=== PATIENT | female | born 1945 | race Caucasian/White ===

== ENCOUNTER 2017-01-15 15:00 | Inpatient (IN) | payer MEDICARE, OTHER ==
[~2017-01-15] VITALS: Ht 157.5 cm; Wt 90.7 kg
--- NOTE | 2017-01-15 15:09 | NUR ---
Pt BIB paramedics, c/o R knee pain, weakness; in room 4B evaluated by MD. Cont with MD orders.
[2017-01-15] MEDS ORDERED: IV NORMAL SALINE 500 ML BAG IV ONE (15:15)
[2017-01-15 15:44] LABS: BASOPHILS % (AUTO) 0.5 % (0.0-2.0); EOSINOPHILS # (AUTO) 0.1 K/uL (0.0-0.7); EOSINOPHILS % (AUTO) 1.2 % (0.0-7.0); HEMATOCRIT 40.1 % (37-47); HEMOGLOBIN 12.9 G/DL (12.0-16.0); LYMPHOCYTES # (AUTO) 1.7 K/UL (0.8-4.8); LYMPHOCYTES % (AUTO) 26.6 % (20.5-51.5); MEAN CORPUSCULAR HEMOGLOBIN 24.2 UUG (27.0-31.0); MEAN CORPUSCULAR HGB CONC 32 g/dL (32.0-37.0); MEAN CORPUSCULAR VOLUME 75.3 FL (81.0-99.0); MONOCYTES # (AUTO) 0.3 K/UL (0.1-1.30); NEUTROPHILS # (AUTO) 4.2 K/UL (1.8-8.9); NEUTROPHILS % (AUTO) 66.7 % (38.5-71.5); PLATELET COUNT (AUTO) 374 K/UL (150-450); RED BLOOD CELL COUNT(AUTO) 5.33 MIL/UL (4.2-5.4); WHITE BLOOD COUNT (AUTO) 6.3 K/UL (4.0-11.2)
[2017-01-15 15:46] LABS: CREATININE 1.1 mg/dL (0.6-1.3); POTASSIUM 5.2 mmol/L (3.5-5.1)
[2017-01-15 15:51] LABS: BILIRUBIN,DIRECT 0.1 mg/dL (0.0-0.2); BILIRUBIN,TOTAL 0.2 mg/dL (0.2-1.0); TOTAL PROTEIN, SERUM 7.4 g/dL (6.4-8.2)
[2017-01-15] MEDS ORDERED: NITROGLYCERIN OINT 1 GM PACKET TP ONE ×2 (16:30→16:47)
[2017-01-15] MEDS ORDERED: FUROSEMIDE 20 MG/2 ML VIAL IV ONE (16:30)
[2017-01-15] MEDS ORDERED: ASPIRIN 81 MG TAB.CHEW PO ONE (16:30)
[2017-01-15] MEDS ORDERED: ACET-2154 PO (16:32)
[2017-01-15] MEDS ORDERED: EXEN5PEN2 SQ (16:37)
[2017-01-15] MEDS ORDERED: ALBU6.7H INH (16:37)
[2017-01-15] MEDS ORDERED: ASPI81TA31 PO (16:37)
[2017-01-15] MEDS ORDERED: ASPIRIN 81 MG TAB.CHEW ONE (16:47)
[2017-01-15] MEDS ORDERED: FUROSEMIDE 40 MG/4 ML VIAL ONE (16:48)
[2017-01-15] MEDS ORDERED: CITA20TA11 PO (16:56)
[2017-01-15] MEDS ORDERED: DOCU100C36 PO (16:56)
[2017-01-15] MEDS ORDERED: MONT10TA22 PO (16:56)
[2017-01-15] MEDS ORDERED: METF10002 PO (16:56)
[2017-01-15] MEDS ORDERED: FURO40TA5 PO (16:56)
[2017-01-15] MEDS ORDERED: PRAV20TA4 PO (16:56)
[2017-01-15] MEDS ORDERED: GUAI-755 PO (16:56)
[2017-01-15] MEDS ORDERED: LOSA100T15 PO (16:56)
[2017-01-15] MEDS ORDERED: POTA10TA15 PO (16:56)
[2017-01-15] MEDS ORDERED: OXYB5TAB11 PO (16:56)
[2017-01-15] MEDS ORDERED: OMEP20TA5 PO (16:56)
[2017-01-15] MEDS ORDERED: IPRA0.2S48 IH ×2 (16:56)
--- NOTE | 2017-01-15 17:15 | NUR ---
Pt resting on a gumarquise mcneil, nad noted, a/o x 4, family with pt. Report given to unit nurse. Will transfer.
[2017-01-15] MEDS ORDERED: ONDANSETRON 4 MG/2 ML VIAL IV PRN (17:45)
[2017-01-15] MEDS ORDERED: ACETAMINOPHEN 325 MG TABLET PO PRN (17:45)
[2017-01-15] MEDS ORDERED: TEMAZEPAM 15 MG CAPSULE PO PRN (17:45)
[2017-01-15] MEDS ORDERED: MORPHINE SULFATE 2 MG/1 ML DISP.SYRIN IV PRN (17:45)
[2017-01-15] MEDS ORDERED: Medication Not On Formulary EA (Pravastatin Sodium 1 TAB) PO SCH (18:00)
--- NOTE | 2017-01-15 18:00 | NUR ---
RECEIVED FOR ADMISSION 71 YEARS OLD FEMALE FROM ED TO ROOM 205 BY ELISHA PLACED INTO BED FIXED AND MADE COMFORTABLE.PATIENT IS ALERT WITH DISORIENTATION.PATIENTS DAUGHTER IS AT THE BEDSIDE AND ASSISTED WITH THE ADMISSION PATIENT HAS DEMENTIA NAD DOES NOT SPEAK MUCH WOLOF..MD AWARE THAT THE PATIENT IS HERE AWAITING FOR ADMISSION ORDERS.
[2017-01-15 18:15] VITALS: BP 100/46
[2017-01-15] MEDS ORDERED: TEMAZEPAM 7.5 MG CAPSULE PO PRN (18:15)
--- NOTE | 2017-01-15 19:20 | NUR ---
Received patient in bed, awake and alert. No apparent distress noted. No complaints of pain or discomfort at this time. On Telemetry with Sinus Rhythm on the monitor with HR 60. Safety measures and fall precautions maintained. Continue current plan of care.
[2017-01-15] MEDS ORDERED: DEXTROSE 50% 50 ML DISP.SYRIN IV PRN (19:45)
[2017-01-15] MEDS ORDERED: INSULIN REGULAR, HUMAN 300 UNIT/3 ML VIAL SQ PRN (19:45)
[2017-01-15 20:00] VITALS: BP 111/51
[2017-01-15] MEDS ORDERED: DOCUSATE SODIUM 250 MG CAPSULE PO SCH (21:00)
[2017-01-15] MEDS: DOCUSATE SODIUM 100 MG CAPSULE PO SCH (21:04)
[2017-01-15] MEDS: MONTELUKAST SODIUM 10 MG TABLET PO SCH (21:04)
[2017-01-15] MEDS: ATORVASTATIN 10 MG TABLET PO SCH (21:04)
[2017-01-15] MEDS: BLOOD SUGAR DIAGNOSTIC 1 EACH STRIP VI SCH (21:09)
[2017-01-16] VITALS: BP 107/47
[2017-01-16 04:00] VITALS: BP 117/52
[2017-01-16 06:20] LABS: BASOPHILS # (AUTO) 0.1 K/uL (0.0-8.0); BASOPHILS % (AUTO) 0.8 % (0.0-2.0); EOSINOPHILS # (AUTO) 0.1 K/uL (0.0-0.7); EOSINOPHILS % (AUTO) 1.6 % (0.0-7.0); HEMATOCRIT 37.1 % (37-47); LYMPHOCYTES % (AUTO) 28.3 % (20.5-51.5); MEAN CORPUSCULAR HEMOGLOBIN 24.6 UUG (27.0-31.0); MEAN CORPUSCULAR HGB CONC 32 g/dL (32.0-37.0); MEAN CORPUSCULAR VOLUME 75.9 FL (81.0-99.0); MONOCYTES # (AUTO) 0.3 K/UL (0.1-1.30); MONOCYTES % (AUTO) 4.9 % (0.0-11.0); NEUTROPHILS # (AUTO) 4.5 K/UL (1.8-8.9); NEUTROPHILS % (AUTO) 64.4 % (38.5-71.5); PLATELET COUNT (AUTO) 320 K/UL (150-450); RED BLOOD CELL COUNT(AUTO) 4.88 MIL/UL (4.2-5.4)
[2017-01-16 06:42] LABS: THYROID STIMULATING HORMONE 0.27 mIU/mL (0.358-3.740)
[2017-01-16 06:51] LABS: BILIRUBIN,TOTAL 0.3 mg/dL (0.2-1.0); MAGNESIUM 1.8 mg/dL (1.8-2.4); PHOSPHOROUS 4.2 mg/dL (2.5-4.9); POTASSIUM 4.3 mmol/L (3.5-5.1); TOTAL PROTEIN, SERUM 6.5 g/dL (6.4-8.2)
[2017-01-16] MEDS: PANTOPRAZOLE SODIUM 40 MG TABLET.DR PO SCH (06:52)
[2017-01-16] MEDS: BLOOD SUGAR DIAGNOSTIC 1 EACH STRIP VI SCH ×4 (06:58→21:30)
[2017-01-16] MEDS: ASPIRIN 81 MG TAB.CHEW PO SCH (08:58)
[2017-01-16] MEDS: CITALOPRAM 20 MG TABLET PO SCH (08:58)
[2017-01-16] MEDS: FUROSEMIDE 20 MG/2 ML VIAL IV SCH ×2 (08:59→21:27)
[2017-01-16] MEDS: CELECOXIB 200 MG CAPSULE PO SCH (08:59)
[2017-01-16] MEDS: OXYBUTYNIN CHLORIDE 5 MG TABLET PO SCH (08:59)
[2017-01-16] MEDS: LOSARTAN POTASSIUM 50 MG TABLET PO SCH (08:59)
[2017-01-16] MEDS ORDERED: Medication Not On Formulary EA (Losartan Potassium 1 TAB) PO SCH (09:00)
--- NOTE | 2017-01-16 09:00 | NUR ---
RESTING IN HER ROOM AT THIS TIME ALERT TO SELF ALL NEEDS ANTICIPATED AND SATISFIED MADE COMFORTABLE NO S/S OF HYPO/HYPERGLYCEMIC REACTIONS AT THIS TIME.
[2017-01-16] MEDS: Z GUARD REMEDY PASTE 57 GM TUBE TOP SCH ×2 (10:39→21:27)
--- NOTE | 2017-01-16 11:30 | NUR ---
PATIENT SEEN BY THE PHYSICAL THERAPY FOR AMBULATION WITH THE FRONT WHEEL WALKER WITH GOOD ENDURANCE.BACK INTO BED
[2017-01-16 11:53] VITALS: BP 106/45
[2017-01-16 16:07] VITALS: BP 100/42
--- NOTE | 2017-01-16 17:30 | NUR ---
PATIENT REFUSED DINNER SPOKE TO HER THROUGH AN CLINICAL SERVICES DIRECTOR THAT SPEAKS FARSI AND SHE STATED THAT SHE JUST WANTED HARD [employer] CALLED AND NOTIFIED AND THEY BROUGHT IT AND SHE ATE THEM.
--- NOTE | 2017-01-16 19:30 | NUR ---
RECEIVED PATIENT LAYING COMFORTABLY IN BED. NO ACUTE DISTRESS NOTED. SAFETY INITIATED. CALL LIGHT WITHIN REACH. PATIENT IS ALERT AND ORIENTED X 3. FARSI SPEAKING. BODY ASSESSMENT DONE. NOTED UMB. HERNIA. AMBULATORY. BRP. STARTED NEW IV ON THE LEFT AC #22. WILL CONTINUE TO MONITOR.
[2017-01-16 20:25] VITALS: BP 108/47
[2017-01-16] MEDS: MONTELUKAST SODIUM 10 MG TABLET PO SCH (21:26)
[2017-01-16] MEDS: DOCUSATE SODIUM 100 MG CAPSULE PO SCH (21:26)
[2017-01-16] MEDS: ATORVASTATIN 10 MG TABLET PO SCH (21:26)
[2017-01-17 05:51] VITALS: BP 110/45
[2017-01-17] MEDS: PANTOPRAZOLE SODIUM 40 MG TABLET.DR PO SCH (06:10)
[2017-01-17 06:16] LABS: BASOPHILS % (AUTO) 0.5 % (0.0-2.0); EOSINOPHILS # (AUTO) 0.1 K/uL (0.0-0.7); HEMOGLOBIN 12.2 G/DL (12.0-16.0); LYMPHOCYTES # (AUTO) 1.8 K/UL (0.8-4.8); LYMPHOCYTES % (AUTO) 32.9 % (20.5-51.5); MEAN CORPUSCULAR HEMOGLOBIN 24.9 UUG (27.0-31.0); MEAN CORPUSCULAR HGB CONC 33 g/dL (32.0-37.0); MEAN CORPUSCULAR VOLUME 75.5 FL (81.0-99.0); MONOCYTES # (AUTO) 0.4 K/UL (0.1-1.30); MONOCYTES % (AUTO) 6.6 % (0.0-11.0); NEUTROPHILS # (AUTO) 3.3 K/UL (1.8-8.9); PLATELET COUNT (AUTO) 321 K/UL (150-450); WHITE BLOOD COUNT (AUTO) 5.6 K/UL (4.0-11.2)
[2017-01-17 06:20] LABS: BILIRUBIN,TOTAL 0.2 mg/dL (0.2-1.0); CREATININE 0.9 mg/dL (0.6-1.3); PHOSPHOROUS 4.1 mg/dL (2.5-4.9); POTASSIUM 3.9 mmol/L (3.5-5.1); TOTAL PROTEIN, SERUM 6.5 g/dL (6.4-8.2)
--- NOTE | 2017-01-17 06:22 | NUR ---
NO CHANGES T/O SHIFT. NO ACUTE DISTRESS NOTED. PATIENT SLEPT T/O SHIFT. VSS. SAFETY AND COMFORT MEASURES MAINTAINED T/O SHIFT. ALL NEEDS MET.
[2017-01-17] MEDS: BLOOD SUGAR DIAGNOSTIC 1 EACH STRIP VI SCH ×4 (06:40→20:32)
--- NOTE | 2017-01-17 08:00 | NUR ---
awake alert and oriented, denies of pain, no shortness of breath noted, on room air, explained plan of care- verbalized understanding, needs attended, call light within reach, bed alarm on
[2017-01-17] MEDS: CITALOPRAM 20 MG TABLET PO SCH (08:28)
[2017-01-17] MEDS: LOSARTAN POTASSIUM 50 MG TABLET PO SCH (08:28)
[2017-01-17] MEDS: OXYBUTYNIN CHLORIDE 5 MG TABLET PO SCH (08:29)
[2017-01-17] MEDS: CELECOXIB 200 MG CAPSULE PO SCH (08:29)
[2017-01-17] MEDS: FUROSEMIDE 20 MG/2 ML VIAL IV SCH (08:29)
[2017-01-17] MEDS: ASPIRIN 81 MG TAB.CHEW PO SCH (08:29)
[2017-01-17] MEDS: Z GUARD REMEDY PASTE 57 GM TUBE TOP SCH ×2 (08:30→20:33)
--- NOTE | 2017-01-17 11:00 | NUR ---
Dr Bauman spoke to daughter Yoel
[2017-01-17 11:30] VITALS: BP 95/46
--- NOTE | 2017-01-17 15:00 | NUR ---
MRSA nares positive- placed on isolation and started on Bactroban oint to nostrils, education given
[2017-01-17 15:39] VITALS: BP 100/40
[2017-01-17] MEDS: MUPIROCIN 2% OINT 22 GM TUBE NS SCH ×2 (15:51→20:32)
--- NOTE | 2017-01-17 18:10 | NUR ---
resting in bed, denies of pain, all needs attended and met, no distress noted, call light within reach
--- NOTE | 2017-01-17 19:00 | NUR ---
Appears sleeping during initial rounds. No s/s of pain/discomforts noted. Safety measures and fall precaution maintained.
[2017-01-17 20:00] VITALS: BP 115/56
[2017-01-17] MEDS: MONTELUKAST SODIUM 10 MG TABLET PO SCH (20:32)
[2017-01-17] MEDS: ATORVASTATIN 10 MG TABLET PO SCH (20:32)
[2017-01-17] MEDS: DOCUSATE SODIUM 100 MG CAPSULE PO SCH (20:32)
[2017-01-17 21:08] LABS: *BILIRUBIN,URIN NEGATIVE (NEGATIVE); *BLOOD, URINE NEGATIVE (NEGATIVE); *COLOR,URINE YELLOW (YELLOW); *KETONES,URINE NEGATIVE (NEGATIVE); *PROTEIN,URINE NEGATIVE (NEGATIVE); *UROBILINOGEN,URINE 0.2 E.U./dl (NORMAL); LEUKOCYTE ESTERASE ,URINE TRACE (NEGATIVE); NITRITE, URINE NEGATIVE (NEGATIVE); UGLUCOSE NEGATIVE (NEGATIVE)
[2017-01-17 21:17] LABS: *CLARITY,URINE SLIGHTLY HAZY (CLEAR)
[2017-01-17 21:20] LABS: BACTERIA,URINE MANY /HPF (NONE SEEN); SQUAMOUS EPITHELIAL CELL,UR FEW /HPF (NONE SEEN)
[2017-01-18 05:14] VITALS: BP 113/51
--- NOTE | 2017-01-18 06:20 | NUR ---
Slept good. No complaint presented all night. All needs attended and met. Continue care as planned.
[2017-01-18] MEDS: BLOOD SUGAR DIAGNOSTIC 1 EACH STRIP VI SCH ×3 (06:26→16:18)
[2017-01-18] MEDS: PANTOPRAZOLE SODIUM 40 MG TABLET.DR PO SCH (06:27)
[2017-01-18 06:30] LABS: BASOPHILS # (AUTO) 0.1 K/uL (0.0-8.0); EOSINOPHILS # (AUTO) 0.2 K/uL (0.0-0.7); EOSINOPHILS % (AUTO) 2.8 % (0.0-7.0); HEMOGLOBIN 11.9 G/DL (12.0-16.0); LYMPHOCYTES % (AUTO) 31.8 % (20.5-51.5); MEAN CORPUSCULAR HGB CONC 33 g/dL (32.0-37.0); MONOCYTES # (AUTO) 0.3 K/UL (0.1-1.30); MONOCYTES % (AUTO) 5.5 % (0.0-11.0); NEUTROPHILS # (AUTO) 3.5 K/UL (1.8-8.9); NEUTROPHILS % (AUTO) 58.9 % (38.5-71.5); PLATELET COUNT (AUTO) 323 K/UL (150-450); RED BLOOD CELL COUNT(AUTO) 4.74 MIL/UL (4.2-5.4); WHITE BLOOD COUNT (AUTO) 6.1 K/UL (4.0-11.2)
[2017-01-18 06:38] LABS: CREATININE 0.8 mg/dL (0.6-1.3); MAGNESIUM 2.1 mg/dL (1.8-2.4); PHOSPHOROUS 3.8 mg/dL (2.5-4.9); POTASSIUM 4.2 mmol/L (3.5-5.1)
--- NOTE | 2017-01-18 07:10 | NUR ---
PT SLEEPING IN BED, AWAKENS TO NAME. IN NO ACUTE DISTRESS, BED ALARM ON. NO NEEDS AT THIS TIME. WILL CONTINUE TO MONITOR
[2017-01-18] MEDS ORDERED: NITROFURANTOIN/NITROFURAN MAC 100 MG CAPSULE PO SCH (09:00)
[2017-01-18] MEDS: LOSARTAN POTASSIUM 50 MG TABLET PO SCH (09:00)
[2017-01-18] MEDS: OXYBUTYNIN CHLORIDE 5 MG TABLET PO SCH (09:02)
[2017-01-18] MEDS: CITALOPRAM 20 MG TABLET PO SCH (09:02)
[2017-01-18] MEDS: ASPIRIN 81 MG TAB.CHEW PO SCH (09:02)
[2017-01-18] MEDS: FUROSEMIDE 20 MG/2 ML VIAL IV SCH (09:02)
[2017-01-18] MEDS: CELECOXIB 200 MG CAPSULE PO SCH (09:02)
[2017-01-18] MEDS: Z GUARD REMEDY PASTE 57 GM TUBE TOP SCH (09:03)
--- NOTE | 2017-01-18 09:29 | NUR ---
PHARMACY CALLED TO ENSURE MONITORING OF PT WHILE GIVING MACROBID DUE TO UNKNOWN ABX ALLERGY, WILL FOLLOW THROUGH
[2017-01-18] MEDS: MUPIROCIN 2% OINT 22 GM TUBE NS SCH (09:46)
--- NOTE | 2017-01-18 09:52 | NUR ---
MACROBID GIVEN, RECHECKED BP 101/43 WILL CONTINUE TO MONITOR
[2017-01-18 11:33] VITALS: BP 103/44
[2017-01-18 15:59] VITALS: BP 105/48
[2017-01-18] MEDS ORDERED: IOHEXOL 300MG/ML 100 ML INFUS..BTL ONE (16:29)
[2017-01-18] MEDS ORDERED: NORMAL SALINE FLUSH 10 ML DISP.SYRIN ONE (16:29)
[2017-01-18] MEDS ORDERED: IV NORMAL SALINE 0 ML IV ONE (16:29)
[2017-01-18] MEDS ORDERED: TEMA7.5C PO (17:19)
[2017-01-18] MEDS ORDERED: MULT1TAB73 PO (17:19)
[2017-01-18] MEDS ORDERED: NITR100C11 PO (17:19)
[2017-01-18] MEDS ORDERED: INSU100V28 SQ (17:19)
[2017-01-18] MEDS ORDERED: PRAV10TA40 PO (17:19)
[2017-01-18] MEDS ORDERED: Blood Sugar Diagnostic VI (17:19)
[2017-01-18] MEDS ORDERED: POTA-10 PO (17:19)
[2017-01-18] MEDS ORDERED: MUPI22OI2 NS (17:19)
[2017-01-18] MEDS ORDERED: FURO20TA4 PO (17:19)
[2017-01-18] MEDS ORDERED: ALBU0.63 NEB (17:19)
[2017-01-18] MEDS ORDERED: CELE200C PO (17:19)
[2017-01-18] MEDS ORDERED: DEXT50DI8 IV (17:19)
[2017-01-18] MEDS ORDERED: ACET325T53 PO (17:19)
[2017-01-18] MEDS ORDERED: LOSA50TA3 PO (17:19)
--- NOTE | 2017-01-18 18:29 | NUR ---
DISCHARGE PROTOCOL FOLLOWED, PT UNCOOPERATIVE FOR PICTURES AND REFUSED SACRUM PICTURE. ALL BELONGINGS WERE SENT HOME WITH FAMILY PRIOR TO DISCHARGE. IV REMOVED WITH NO REDNESS OR IRRITATION NOTED. [facility], PT LEFT VIA GURNEY WITH AMBULANCE STAFF
[2017-01-19] MEDS ORDERED: LOSARTAN POTASSIUM 50 MG TABLET PO SCH (09:00)
[2017-01-19] MEDS ORDERED: FUROSEMIDE 20 MG TABLET PO SCH (09:00)
== END 2017-01-18 18:20 | DRG 291 ==
LOC: ER 15:00 → TELE 17:19 → MED 01-16 10:00
PROVIDERS: ADMIT Internal Medicine; ATTEND Internal Medicine
DX: I11.0 Hypertensive heart disease with heart failure (principal); E43 Unspecified severe protein-calorie malnutrition; D68.59 Other primary thrombophilia; E87.5 Hyperkalemia; J44.9 Chronic obstructive pulmonary disease, unspecified; N39.0 Urinary tract infection, site not specified; E87.1 Hypo-osmolality and hyponatremia; F03.90 Unspecified dementia, unspecified severity, without behavioral disturbance, psychotic disturbance, mood disturbance, and anxiety; R00.1 Bradycardia, unspecified; E11.9 Type 2 diabetes mellitus without complications; E05.90 Thyrotoxicosis, unspecified without thyrotoxic crisis or storm; R62.7 Adult failure to thrive; I50.33 Acute on chronic diastolic (congestive) heart failure; F20.9 Schizophrenia, unspecified; F41.9 Anxiety disorder, unspecified; I45.10 Unspecified right bundle-branch block; K21.9 Gastro-esophageal reflux disease without esophagitis; E78.5 Hyperlipidemia, unspecified; E66.9 Obesity, unspecified; G47.33 Obstructive sleep apnea (adult) (pediatric); Z86.73 Personal history of transient ischemic attack (TIA), and cerebral infarction without residual deficits; M17.11 Unilateral primary osteoarthritis, right knee; I35.0 Nonrheumatic aortic (valve) stenosis; Z68.36 Body mass index [BMI] 36.0-36.9, adult; B96.20 Unspecified Escherichia coli [E. coli] as the cause of diseases classified elsewhere; E07.9 Disorder of thyroid, unspecified; R53.1 Weakness
CPT/HCPCS: 36415; 70030-TC; 71010; 83550; 83690; 83735; 84100; 84443; 85025; 85730; 87077; 87086; 93005; 93307; A4663; J1815; J1940; J3490; J7030; J7050; Q9967

== ENCOUNTER 2017-03-13 12:23 | Inpatient (IN) | payer MEDICARE, OTHER ==
[~2017-03-13] VITALS: Ht 157.5 cm; Wt 95.7 kg
[~2017-03-13 12:23] MED LIST: ACET325T53 PO; ALBU0.63 NEB; ASPI81TA31 PO; Blood Sugar Diagnostic VI; CELE200C PO; CITA20TA11 PO; DEXT50DI8 IV; DOCU100C36 PO; EXEN5PEN2 SQ; FURO20TA4 PO; GUAI-755 PO; INSU100V28 SQ; IPRA0.2S48 IH; LOSA50TA3 PO; MONT10TA22 PO; MULT1TAB73 PO; MUPI22OI2 NS; NITR100C11 PO; OMEP20TA5 PO; OXYB5TAB11 PO; POTA-10 PO; PRAV10TA40 PO; TEMA7.5C PO
--- NOTE | 2017-03-13 12:30 | NUR ---
Dr sarabia at the bedside for eval and exam.
[2017-03-13] MEDS ORDERED: IV NORMAL SALINE 500 ML BAG IV ONE (12:45)
[2017-03-13] MEDS ORDERED: GLUC1KIT IM (13:20)
[2017-03-13] MEDS ORDERED: FURO-151 PO (13:20)
[2017-03-13] MEDS ORDERED: MELO-105 PO (13:20)
[2017-03-13 13:44] LABS: BASOPHILS # (AUTO) 0.2 K/uL (0.0-8.0); BASOPHILS % (AUTO) 2.2 % (0.0-2.0); EOSINOPHILS # (AUTO) 0.1 K/uL (0.0-0.7); EOSINOPHILS % (AUTO) 1.9 % (0.0-7.0); HEMATOCRIT 38.7 % (37-47); HEMOGLOBIN 12.2 G/DL (12.0-16.0); LYMPHOCYTES # (AUTO) 1.5 K/UL (0.8-4.8); LYMPHOCYTES % (AUTO) 20.8 % (20.5-51.5); MEAN CORPUSCULAR HEMOGLOBIN 23.7 UUG (27.0-31.0); MEAN CORPUSCULAR HGB CONC 32 g/dL (32.0-37.0); MEAN CORPUSCULAR VOLUME 74.9 FL (81.0-99.0); MONOCYTES # (AUTO) 0.4 K/UL (0.1-1.30); MONOCYTES % (AUTO) 5.1 % (0.0-11.0); NEUTROPHILS # (AUTO) 5.2 K/UL (1.8-8.9); PLATELET COUNT (AUTO) 331 K/UL (150-450); RED BLOOD CELL COUNT(AUTO) 5.16 MIL/UL (4.2-5.4); WHITE BLOOD COUNT (AUTO) 7.4 K/UL (4.0-11.2)
--- NOTE | 2017-03-13 13:50 | NUR ---
Pt is fed by Pt's daughter. Denies pain, SOB.
[2017-03-13 13:56] LABS: POTASSIUM 4.4 mmol/L (3.5-5.1)
[2017-03-13 14:05] LABS: BILIRUBIN,DIRECT 0.1 mg/dL (0.0-0.2); BILIRUBIN,TOTAL 0.3 mg/dL (0.2-1.0)
[2017-03-13] MEDS ORDERED: FUROSEMIDE 20 MG/2 ML VIAL IV ONE (14:15)
[2017-03-13] MEDS ORDERED: FUROSEMIDE 40 MG/4 ML VIAL ONE (14:32)
[2017-03-13 14:48] LABS: *BILIRUBIN,URIN NEGATIVE (NEGATIVE); *BLOOD, URINE Trace-intact (NEGATIVE); *CLARITY,URINE CLEAR (CLEAR); *COLOR,URINE YELLOW (YELLOW); *KETONES,URINE NEGATIVE (NEGATIVE); *PROTEIN,URINE NEGATIVE (NEGATIVE); *UROBILINOGEN,URINE 0.2 E.U./dl (NORMAL); LEUKOCYTE ESTERASE ,URINE TRACE (NEGATIVE); NITRITE, URINE NEGATIVE (NEGATIVE); UGLUCOSE NEGATIVE (NEGATIVE)
[2017-03-13 14:58] LABS: RBC,URINE 0-3 /HPF (0-3); SQUAMOUS EPITHELIAL CELL,UR FEW /HPF (NONE SEEN)
[2017-03-13 16:10] VITALS: BP 117/41
--- NOTE | 2017-03-13 18:00 | NUR ---
Admitted pt with assistance from blue phone sales operations coordinator named SHILPI Roy speaking #[phone]. Pt alert and oriented x 4. Pt Denies any c/o pain. SNR on tele skin intact. IV on left AC #20 gauge. NOted edema on DEON legs +4 and BIle Leg +3. Call light is within reach. POLST in chart. Education given to pt re: not drinking too much water to help with her congestion. Pt agreeable. Pt agreeable also on having banana with her breakfast to help with possible diuretics to be given by PMD. Pt agreeable on to call for nursing when going the bathroom. Fall precaution implemented.
[2017-03-13] MEDS ORDERED: ACETAMINOPHEN 325 MG TABLET PO PRN (18:45)
[2017-03-13] MEDS ORDERED: IPRATROPIUM BROMIDE 0.5 MG/2.5 ML NEBU IH SCH (18:45)
[2017-03-13] MEDS ORDERED: ONDANSETRON 4 MG/2 ML VIAL IV PRN (18:45)
[2017-03-13] MEDS ORDERED: INSULIN REGULAR, HUMAN 300 UNIT/3 ML VIAL SQ PRN ×2 (18:45)
[2017-03-13] MEDS ORDERED: DEXTROSE 50% 50 ML DISP.SYRIN IV PRN (18:45)
[2017-03-13] MEDS ORDERED: TEMAZEPAM 7.5 MG CAPSULE PO PRN (18:45)
[2017-03-13] MEDS ORDERED: ALBUTEROL SULFATE 2.5 MG/3 ML NEBU NEB PRN (18:45)
[2017-03-13] MEDS ORDERED: DOCUSATE SODIUM 100 MG CAPSULE PO PRN (18:45)
[2017-03-13] MEDS ORDERED: MORPHINE SULFATE 2 MG/1 ML DISP.SYRIN IV PRN (18:45)
[2017-03-13] MEDS ORDERED: MORPHINE SULFATE 4 MG/1 ML DISP.SYRIN IV PRN (19:00)
--- NOTE | 2017-03-13 19:30 | NUR ---
PT RECEIVED IN BED LAYING DOWN NO ACUTE DISTRESS NOTED. PT IS FARSI SPEAKING ONLY BUT ABLE TO MAKE NEEDS KNOWN. COMPLIANT WITH MEDICATIONS PO. NO S/S HYPO/HYPERGLYCEMIA NOTED. PT ON TELE SINUS/MAHNAZ DENISE RATING CLERK AWARE. PT ON NASAL CANULA 2 LITERS BUT REFUSING TO WEAR. BED IN LOW AND LOCKED POSITION, WILL CONTINUE TO MONITOR FOR SAFETY.
[2017-03-13 20:00] VITALS: BP 98/46
[2017-03-13] MEDS ORDERED: Medication Not On Formulary EA (Pravastatin Sodium 10 MG) PO SCH (21:00)
[2017-03-13] MEDS: MONTELUKAST SODIUM 10 MG TABLET PO SCH (21:08)
[2017-03-13] MEDS: ATORVASTATIN 10 MG TABLET PO SCH (21:08)
[2017-03-13] MEDS: INSULIN REGULAR, HUMAN 300 UNITS/3 ML VIAL SQ PRN (21:12)
[2017-03-13] MEDS: BLOOD SUGAR DIAGNOSTIC 1 EACH STRIP VI SCH (21:13)
[2017-03-14 00:35] VITALS: BP 134/50
[2017-03-14] MEDS: FUROSEMIDE 40 MG/4 ML VIAL IV SCH ×3 (01:26→20:07)
--- NOTE | 2017-03-14 03:00 | NUR ---
PT SLEEPING WELL, UP ONCE TO USE RESTROOM. REMAINS ON TELE SINUS BIGEMINY, NO ACUTE DISTRESS NOTED.
[2017-03-14 04:00] VITALS: BP 131/50
[2017-03-14] MEDS: BLOOD SUGAR DIAGNOSTIC 1 EACH STRIP VI SCH ×4 (06:53→20:07)
--- NOTE | 2017-03-14 07:35 | NUR ---
PT RECEIVED IN BED LAYING DOWN NO ACUTE DISTRESS NOTED. COMPLIANT WITH MEDICATIONS NO S/S HYPO/HYPERGLYCEMIA NOTED. PT ON TELE SINUS/BIGEMINY, PT ON NASAL CANULA 2 LITERS BUT REFUSING TO WEAR. BED IN LOW AND LOCKED POSITION, WILL CONTINUE TO MONITOR FOR SAFETY CALL LIGHT WITH IN REACH
[2017-03-14] MEDS: POTASSIUM CHLORIDE 10 MEQ CAPSULE.SA PO SCH (08:18)
[2017-03-14] MEDS: MELOXICAM 7.5 MG TABLET PO SCH (08:18)
[2017-03-14] MEDS: MULTIVITAMINS,THERAPEUTIC TABLET PO SCH (08:18)
[2017-03-14] MEDS: CITALOPRAM 20 MG TABLET PO SCH (08:19)
[2017-03-14] MEDS: OXYBUTYNIN CHLORIDE 5 MG TABLET PO SCH (08:19)
[2017-03-14] MEDS: ASPIRIN 81 MG TAB.CHEW PO SCH (08:19)
[2017-03-14] MEDS: LOSARTAN POTASSIUM 50 MG TABLET PO SCH (08:39)
[2017-03-14] MEDS ORDERED: Medication Not On Formulary EA (Potassium Chloride (K-Dur) 10 MEQ) PO SCH (09:00)
[2017-03-14] MEDS ORDERED: Medication Not On Formulary EA (Multivitamins (Multivitamin) 1 EACH) PO SCH (09:00)
[2017-03-14] MEDS ORDERED: FUROSEMIDE 40 MG TABLET PO SCH (09:00)
[2017-03-14 10:04] LABS: BASOPHILS % (AUTO) 0.6 % (0.0-2.0); EOSINOPHILS # (AUTO) 0.2 K/uL (0.0-0.7); EOSINOPHILS % (AUTO) 2.5 % (0.0-7.0); HEMATOCRIT 36.7 % (37-47); HEMOGLOBIN 11.8 G/DL (12.0-16.0); LYMPHOCYTES # (AUTO) 1.1 K/UL (0.8-4.8); LYMPHOCYTES % (AUTO) 16.4 % (20.5-51.5); MEAN CORPUSCULAR HEMOGLOBIN 23.9 UUG (27.0-31.0); MEAN CORPUSCULAR HGB CONC 32 g/dL (32.0-37.0); MEAN CORPUSCULAR VOLUME 74.5 FL (81.0-99.0); MONOCYTES # (AUTO) 0.2 K/UL (0.1-1.30); MONOCYTES % (AUTO) 3.7 % (0.0-11.0); NEUTROPHILS # (AUTO) 5.1 K/UL (1.8-8.9); NEUTROPHILS % (AUTO) 76.8 % (38.5-71.5); PLATELET COUNT (AUTO) 309 K/UL (150-450); RED BLOOD CELL COUNT(AUTO) 4.93 MIL/UL (4.2-5.4); WHITE BLOOD COUNT (AUTO) 6.6 K/UL (4.0-11.2)
[2017-03-14 10:09] LABS: BILIRUBIN,TOTAL 0.4 mg/dL (0.2-1.0); CREATININE 1.1 mg/dL (0.6-1.3); PHOSPHOROUS 4.2 mg/dL (2.5-4.9); POTASSIUM 4.2 mmol/L (3.5-5.1); TOTAL PROTEIN, SERUM 7.2 g/dL (6.4-8.2)
[2017-03-14 11:18] VITALS: BP 107/69
--- NOTE | 2017-03-14 12:00 | NUR ---
Pt is fed by Pt's daughter. Denies pain, SOB.
[2017-03-14 15:46] VITALS: BP 124/47
[2017-03-14 19:49] VITALS: BP 105/56
[2017-03-14] MEDS: MONTELUKAST SODIUM 10 MG TABLET PO SCH (20:07)
[2017-03-14] MEDS: ATORVASTATIN 10 MG TABLET PO SCH (20:07)
[2017-03-14] MEDS: INSULIN REGULAR, HUMAN 300 UNITS/3 ML VIAL SQ PRN (20:13)
[2017-03-14 23:40] VITALS: BP 128/56
[2017-03-15 03:46] VITALS: BP 115/42
[2017-03-15 03:49] VITALS: BP 115/42
--- NOTE | 2017-03-15 06:26 | NUR ---
SLEPT MOST SHIFT. ON SR WITH PVCS ON TELE. IN NO ACUTE SIGNS OF DISTRESS. BRP.
[2017-03-15] MEDS: BLOOD SUGAR DIAGNOSTIC 1 EACH STRIP VI SCH ×4 (06:57→21:17)
--- NOTE | 2017-03-15 08:00 | NUR ---
PT RECEIVED IN BED LAYING DOWN NO ACUTE DISTRESS NOTED. PT IS FARSI SPEAKING ONLY BUT ABLE TO MAKE NEEDS KNOWN. COMPLIANT WITH MEDICATIONS PO. NO S/S HYPO/HYPERGLYCEMIA NOTED. PT ON TELE SINUS/MAHNAZ DENISE HIGH SCHOOL COORDINATOR AWARE. BED IN LOW AND LOCKED POSITION, WILL CONTINUE TO MONITOR FOR SAFETY.
[2017-03-15] MEDS: MULTIVITAMINS,THERAPEUTIC TABLET PO SCH (08:02)
[2017-03-15] MEDS: POTASSIUM CHLORIDE 10 MEQ CAPSULE.SA PO SCH (08:02)
[2017-03-15] MEDS: ASPIRIN 81 MG TAB.CHEW PO SCH (08:03)
[2017-03-15] MEDS: MELOXICAM 7.5 MG TABLET PO SCH (08:03)
[2017-03-15] MEDS: OXYBUTYNIN CHLORIDE 5 MG TABLET PO SCH (08:03)
[2017-03-15] MEDS: CITALOPRAM 20 MG TABLET PO SCH (08:03)
[2017-03-15] MEDS: FUROSEMIDE 40 MG/4 ML VIAL IV SCH ×2 (08:16→21:16)
[2017-03-15] MEDS: LOSARTAN POTASSIUM 50 MG TABLET PO SCH (08:18)
[2017-03-15] MEDS ORDERED: MAGNESIUM HYDROXIDE 30 ML LIQUID UDC PO PRN (11:30)
[2017-03-15 11:36] VITALS: BP 100/44
[2017-03-15 15:10] VITALS: BP 123/62
[2017-03-15] MEDS ORDERED: HYDROCODONE/APAP 5-325MG TABLET PO PRN (15:15)
--- NOTE | 2017-03-15 16:41 | NUR ---
RESTING IN HER ROOM ,FAMILY AT BED SIDE.
--- NOTE | 2017-03-15 19:30 | NUR ---
PT UP IN CHAIR. IN NO ACUTE SIGNS OF DISTRESS. NO C/O PAIN AT THIS TIME. SR ON TELE.
[2017-03-15 20:56] VITALS: BP 118/55
[2017-03-15] MEDS: ATORVASTATIN 10 MG TABLET PO SCH (21:16)
[2017-03-15] MEDS: MONTELUKAST SODIUM 10 MG TABLET PO SCH (21:17)
[2017-03-15] MEDS: INSULIN REGULAR, HUMAN 300 UNITS/3 ML VIAL SQ PRN (21:20)
--- NOTE | 2017-03-16 05:45 | NUR ---
SLEPT INTERMITTENTLY. NO ACUTE SIGNS OF DISTRESS. NEEDS ATTENDED AND MET.
[2017-03-16 05:46] VITALS: BP 112/41
[2017-03-16] MEDS: BLOOD SUGAR DIAGNOSTIC 1 EACH STRIP VI SCH ×3 (06:33→16:06)
--- NOTE | 2017-03-16 07:24 | NUR ---
PT RECEIVED IN BED LAYING DOWN NO ACUTE DISTRESS NOTED. PT IS FARSI SPEAKING ONLY BUT ABLE TO MAKE NEEDS KNOWN. COMPLIANT WITH MEDICATIONS PO. NO S/S HYPO/HYPERGLYCEMIA NOTED. PT ON TELE SINUS/MAHNAZ DENISE ESCALATOR CONSTRUCTOR AWARE. BED IN LOW AND LOCKED POSITION, WILL CONTINUE TO MONITOR FOR SAFETY.
[2017-03-16 07:39] LABS: BASOPHILS % (AUTO) 0.5 % (0.0-2.0); EOSINOPHILS # (AUTO) 0.2 K/uL (0.0-0.7); HEMATOCRIT 38.8 % (37-47); HEMOGLOBIN 12.5 G/DL (12.0-16.0); LYMPHOCYTES # (AUTO) 1.4 K/UL (0.8-4.8); LYMPHOCYTES % (AUTO) 21.3 % (20.5-51.5); MEAN CORPUSCULAR HEMOGLOBIN 24.3 UUG (27.0-31.0); MEAN CORPUSCULAR HGB CONC 32 g/dL (32.0-37.0); MEAN CORPUSCULAR VOLUME 75.2 FL (81.0-99.0); MONOCYTES # (AUTO) 0.5 K/UL (0.1-1.30); MONOCYTES % (AUTO) 6.9 % (0.0-11.0); NEUTROPHILS # (AUTO) 4.6 K/UL (1.8-8.9); NEUTROPHILS % (AUTO) 68.3 % (38.5-71.5); PLATELET COUNT (AUTO) 333 K/UL (150-450); RED BLOOD CELL COUNT(AUTO) 5.16 MIL/UL (4.2-5.4); WHITE BLOOD COUNT (AUTO) 6.7 K/UL (4.0-11.2)
[2017-03-16 07:56] LABS: BILIRUBIN,TOTAL 0.4 mg/dL (0.2-1.0); MAGNESIUM 2.2 mg/dL (1.8-2.4); PHOSPHOROUS 4.2 mg/dL (2.5-4.9); POTASSIUM 4.2 mmol/L (3.5-5.1); TOTAL PROTEIN, SERUM 7.5 g/dL (6.4-8.2)
[2017-03-16 07:57] LABS: THYROID STIMULATING HORMONE 0.327 mIU/mL (0.358-3.740)
[2017-03-16] MEDS: ASPIRIN 81 MG TAB.CHEW PO SCH (08:04)
[2017-03-16] MEDS: OXYBUTYNIN CHLORIDE 5 MG TABLET PO SCH (08:04)
[2017-03-16] MEDS: MELOXICAM 7.5 MG TABLET PO SCH (08:04)
[2017-03-16] MEDS: POTASSIUM CHLORIDE 10 MEQ CAPSULE.SA PO SCH (08:04)
[2017-03-16] MEDS: CITALOPRAM 20 MG TABLET PO SCH (08:04)
[2017-03-16] MEDS: MULTIVITAMINS,THERAPEUTIC TABLET PO SCH (08:04)
[2017-03-16] MEDS: LOSARTAN POTASSIUM 50 MG TABLET PO SCH (08:10)
[2017-03-16] MEDS: FUROSEMIDE 40 MG/4 ML VIAL IV SCH (08:11)
[2017-03-16 11:03] VITALS: BP 116/56
[2017-03-16] MEDS ORDERED: FERROUS SULFATE 325 MG TABEC PO SCH (12:15)
[2017-03-16 15:14] VITALS: BP 118/62
[2017-03-16] MEDS ORDERED: IPRA3AMP IH (16:03)
[2017-03-16] MEDS ORDERED: FERR325T28 PO (16:03)
[2017-03-16] MEDS ORDERED: FUROSEMIDE 40 MG TABLET PO SCH (17:00)
--- NOTE | 2017-03-16 17:17 | NUR ---
d/c orders received noted and carried out,d/c heplock per md orders.rn report given to [facility],ot left the facility via ambulances in stable condition.
[2017-03-17] MEDS ORDERED: ASPIRIN EC 81 MG TABLET.DR PO SCH (09:00)
== END 2017-03-16 17:20 | DRG 292 ==
LOC: ER 12:24 → TELE 14:19 → MED 03-15 19:45
PROVIDERS: ADMIT Internal Medicine; ATTEND Internal Medicine
DX: I11.0 Hypertensive heart disease with heart failure (principal); D68.59 Other primary thrombophilia; E44.0 Moderate protein-calorie malnutrition; E05.90 Thyrotoxicosis, unspecified without thyrotoxic crisis or storm; F20.9 Schizophrenia, unspecified; D50.9 Iron deficiency anemia, unspecified; E11.9 Type 2 diabetes mellitus without complications; E07.89 Other specified disorders of thyroid; N39.0 Urinary tract infection, site not specified; E66.9 Obesity, unspecified; E78.5 Hyperlipidemia, unspecified; J44.9 Chronic obstructive pulmonary disease, unspecified; G47.33 Obstructive sleep apnea (adult) (pediatric); I50.33 Acute on chronic diastolic (congestive) heart failure; I87.2 Venous insufficiency (chronic) (peripheral); R62.7 Adult failure to thrive; M19.90 Unspecified osteoarthritis, unspecified site; Z86.73 Personal history of transient ischemic attack (TIA), and cerebral infarction without residual deficits; Z68.38 Body mass index [BMI] 38.0-38.9, adult; I45.10 Unspecified right bundle-branch block; F41.9 Anxiety disorder, unspecified; R53.81 Other malaise; Z79.4 Long term (current) use of insulin; R94.31 Abnormal electrocardiogram [ECG] [EKG]
CPT/HCPCS: 36415; 70030-TC; 71010; 83550; 83605; 83735; 84100; 84443; 85025; 85730; 87040; 87086; 93005; A4663; J1815; J1940; J7040

== ENCOUNTER 2017-05-26 15:14 | Inpatient (IN) | payer MEDICARE, OTHER ==
[~2017-05-26] VITALS: Ht 157.5 cm; Wt 96.2 kg
[~2017-05-26 15:14] MED LIST changes: -ALBU0.63 NEB; -Blood Sugar Diagnostic VI; -CELE200C PO; -DEXT50DI8 IV; +FERR325T28 PO; +FURO-151 PO; -FURO20TA4 PO; -GUAI-755 PO; -INSU100V28 SQ; -IPRA0.2S48 IH; +IPRA3AMP IH; +MELO-105 PO; -MUPI22OI2 NS; -NITR100C11 PO
--- NOTE | 2017-05-26 15:20 | NUR ---
DR COX AT THE BEDSIDE FOR MSE.
[2017-05-26] MEDS ORDERED: IV NORMAL SALINE 500 ML BAG IV ONE (15:30)
[2017-05-26] MEDS ORDERED: ROBITUSSIN DM PO (15:57)
[2017-05-26] MEDS ORDERED: LIRA0.6P2 SQ (15:57)
[2017-05-26] MEDS ORDERED: LEVO500T2 PO (15:57)
[2017-05-26 16:05] LABS: BASOPHILS # (AUTO) 0.1 K/uL (0.0-8.0); BASOPHILS % (AUTO) 0.8 % (0.0-2.0); EOSINOPHILS % (AUTO) 0.5 % (0.0-7.0); HEMATOCRIT 36.2 % (31.2-41.9); HEMOGLOBIN 11.8 g/dL (10.9-14.3); LYMPHOCYTES # (AUTO) 1.1 K/uL (20.0-40.0); LYMPHOCYTES % (AUTO) 14.3 % (20.5-51.5); MEAN CORPUSCULAR HEMOGLOBIN 23.7 uug (24.7-32.8); MEAN CORPUSCULAR HGB CONC 33 g/dL (32.3-35.6); MEAN CORPUSCULAR VOLUME 72.5 fL (75.5-95.3); MONOCYTES # (AUTO) 0.6 K/uL (2.0-10.0); MONOCYTES % (AUTO) 7.7 % (0.0-11.0); NEUTROPHILS % (AUTO) 76.7 % (38.5-71.5); PLATELET COUNT (AUTO) 421 K/uL (179-408); WHITE BLOOD COUNT (AUTO) 7.9 K/uL (3.8-11.8)
[2017-05-26 16:26] LABS: BILIRUBIN,DIRECT 0.1 mg/dL (0.0-0.2); BILIRUBIN,TOTAL 0.3 mg/dL (0.2-1.0); TOTAL PROTEIN, SERUM 7.4 g/dL (6.4-8.2)
--- NOTE | 2017-05-26 16:27 | NUR ---
PT'S DAUGHTER FEEDING THE PT. PT REMAINES ON 1L OF O2 VIA N/C, COUGHING AT TIMES. DENIES SOB AND PAIN.
--- NOTE | 2017-05-26 16:30 | NUR ---
MRSA COLLECTED AND SENT TO LAB, BELONGING LIST COMPLETED.
[2017-05-26] MEDS ORDERED: FUROSEMIDE 20 MG/2 ML VIAL IV ONE (17:45)
[2017-05-26] MEDS ORDERED: FUROSEMIDE 40 MG/4 ML VIAL ONE (18:00)
--- NOTE | 2017-05-26 18:00 | NUR ---
PATIENT WAS RECEIVED FROM ER
[2017-05-26 18:04] VITALS: BP 111/58
--- NOTE | 2017-05-26 19:30 | NUR ---
Received patient sitting in the bed. No acute distress noted. Farsi speaking only. TELE Sinus Rhythm. On O2 2L NC. Patient is obese. Patient is able to ambulate with assistance. Noted bilateral lower extremities. Safety initiated. Call light within reach. Room is kept clutter free. Bed is in low and locked position. Will continue to monitor.
[2017-05-26 20:00] VITALS: BP 109/55
[2017-05-26] MEDS ORDERED: ACETAMINOPHEN 325 MG TABLET PO PRN (21:45)
[2017-05-26] MEDS ORDERED: MORPHINE SULFATE 2 MG/1 ML DISP.SYRIN IV PRN (21:45)
[2017-05-26] MEDS ORDERED: DOCUSATE SODIUM 100 MG CAPSULE PO PRN (21:45)
[2017-05-26] MEDS ORDERED: NORMAL SALINE FLUSH 10 ML DISP.SYRIN IV PRN (21:45)
[2017-05-26] MEDS ORDERED: ACETAMINOPHEN 650 MG SUPP.RECT RC PRN (21:45)
[2017-05-26] MEDS ORDERED: ROBITUSSIN DM PO SCH (21:45)
[2017-05-26 22:12] LABS: *BILIRUBIN,URIN NEGATIVE (NEGATIVE); *BLOOD, URINE NEGATIVE (NEGATIVE); *CLARITY,URINE CLEAR (CLEAR); *COLOR,URINE LIGHT YELLOW (YELLOW); *KETONES,URINE NEGATIVE (NEGATIVE); *PROTEIN,URINE NEGATIVE (NEGATIVE); *UROBILINOGEN,URINE 0.2 E.U./dl (NORMAL); LEUKOCYTE ESTERASE ,URINE NEGATIVE (NEGATIVE); NITRITE, URINE NEGATIVE (NEGATIVE); PH,URINE 5.5 (5.0-8.0); UGLUCOSE NEGATIVE (NEGATIVE)
[2017-05-26] MEDS: LEVOFLOXACIN 500 MG/D5W 500 MG in PREMIXED 1 EACH IV SCH (22:16)
[2017-05-26 22:17] LABS: SQUAMOUS EPITHELIAL CELL,UR FEW /HPF (NONE SEEN); WBC,URINE 0-3 /HPF (0-3)
[2017-05-26] MEDS: NORMAL SALINE FLUSH 10 ML DISP.SYRIN IV SCH (22:17)
[2017-05-26] MEDS ORDERED: LEVOFLOXACIN 500 MG/D5W 100 ML ONE (22:24)
--- NOTE | 2017-05-26 22:30 | NUR ---
IV Abx infusing, no reactions. Will continue to monitor.
[2017-05-27] VITALS: BP 112/58
[2017-05-27 04:00] VITALS: BP 110/59
--- NOTE | 2017-05-27 05:36 | NUR ---
Patient slept intermittently t/o shift. No acute distress noted. Patient is on O2 2L NC. TELE SR with PVC's. Patient has a cough. Non productive. Patient is able to ambulate with assistive device or with assistance. Urinating well. Safety and comfort measures maintained t/o shift. Vital signs stable. All meds given as ordered. All needs met.
[2017-05-27] MEDS: NORMAL SALINE FLUSH 10 ML DISP.SYRIN IV SCH ×3 (05:38→21:42)
[2017-05-27 07:12] LABS: BASOPHILS % (AUTO) 0.3 % (0.0-2.0); EOSINOPHILS # (AUTO) 0.1 K/uL (0.0-0.7); EOSINOPHILS % (AUTO) 1.1 % (0.0-7.0); HEMATOCRIT 38.5 % (31.2-41.9); HEMOGLOBIN 12.4 g/dL (10.9-14.3); LYMPHOCYTES # (AUTO) 1.3 K/uL (20.0-40.0); LYMPHOCYTES % (AUTO) 15.1 % (20.5-51.5); MEAN CORPUSCULAR HEMOGLOBIN 23.4 uug (24.7-32.8); MEAN CORPUSCULAR HGB CONC 32 g/dL (32.3-35.6); MEAN CORPUSCULAR VOLUME 72.5 fL (75.5-95.3); MONOCYTES # (AUTO) 0.5 K/uL (2.0-10.0); MONOCYTES % (AUTO) 5.7 % (0.0-11.0); NEUTROPHILS # (AUTO) 6.7 K/uL (1.8-8.9); NEUTROPHILS % (AUTO) 77.8 % (38.5-71.5); PLATELET COUNT (AUTO) 489 K/uL (179-408); WHITE BLOOD COUNT (AUTO) 8.6 K/uL (3.8-11.8)
[2017-05-27] MEDS ORDERED: MORPHINE SULFATE 4 MG/1 ML DISP.SYRIN IV PRN (07:15)
[2017-05-27 07:27] LABS: BILIRUBIN,TOTAL 0.3 mg/dL (0.2-1.0); PHOSPHOROUS 4.2 mg/dL (2.5-4.9); POTASSIUM 4.9 mmol/L (3.5-5.1); TOTAL PROTEIN, SERUM 7.9 g/dL (6.4-8.2)
--- NOTE | 2017-05-27 07:30 | NUR ---
Received patient sitting in the bed. No acute distress noted. Farsi speaking only. TELE Sinus Rhythm. On O2 2L NC. Patient is able to ambulate with assistance. Safety initiated. Call light within reach. Bed is in low and locked position. Will continue to monitor.
[2017-05-27] MEDS: GUAIFENESIN/DEXTROMETHORPHAN 5 ML UDC PO PRN ×3 (07:37→21:40)
[2017-05-27] MEDS: PANTOPRAZOLE SODIUM 40 MG TABLET.DR PO SCH (07:37)
[2017-05-27] MEDS: ASPIRIN 81 MG TAB.CHEW PO SCH (08:02)
[2017-05-27] MEDS: CITALOPRAM 20 MG TABLET PO SCH (08:02)
[2017-05-27] MEDS: OXYBUTYNIN CHLORIDE 5 MG TABLET PO SCH (08:02)
[2017-05-27] MEDS: FERROUS SULFATE 325 MG TABEC PO SCH (08:02)
[2017-05-27] MEDS: FUROSEMIDE 20 MG/2 ML VIAL IV SCH ×2 (08:04→21:41)
[2017-05-27 11:50] VITALS: BP 118/49
[2017-05-27 15:50] VITALS: BP 110/42
--- NOTE | 2017-05-27 19:30 | NUR ---
NSG: Pt received sitting on the chair. no acute distress noted. denies discomfort. tele, SR. ambulatory with stand by assist using fww.
[2017-05-27 20:10] VITALS: BP 119/43
[2017-05-27] MEDS: MONTELUKAST SODIUM 10 MG TABLET PO SCH (21:40)
[2017-05-27] MEDS: LEVOFLOXACIN 500 MG/D5W 500 MG in PREMIXED 1 EACH IV SCH (21:41)
--- NOTE | 2017-05-27 23:30 | NUR ---
NSG: Pt received lasix ivp. incontinent of urine.
[2017-05-28] VITALS: BP 115/43
[2017-05-28 04:00] VITALS: BP 92/74
[2017-05-28] MEDS ORDERED: Z GUARD REMEDY PASTE 57 GM TUBE TOP PRN (04:45)
--- NOTE | 2017-05-28 05:30 | NUR ---
nsg: pt awake. no acute distress noted. denies discomfort. all needs attended. tele, SR.
[2017-05-28] MEDS: GUAIFENESIN/DEXTROMETHORPHAN 5 ML UDC PO PRN ×2 (06:19→15:18)
[2017-05-28] MEDS: PANTOPRAZOLE SODIUM 40 MG TABLET.DR PO SCH (06:19)
[2017-05-28] MEDS: NORMAL SALINE FLUSH 10 ML DISP.SYRIN IV SCH ×3 (06:19→20:52)
[2017-05-28] MEDS: CITALOPRAM 20 MG TABLET PO SCH (08:43)
[2017-05-28] MEDS: FERROUS SULFATE 325 MG TABEC PO SCH (08:43)
[2017-05-28] MEDS: FUROSEMIDE 20 MG/2 ML VIAL IV SCH ×2 (08:43→20:53)
[2017-05-28] MEDS: OXYBUTYNIN CHLORIDE 5 MG TABLET PO SCH (08:43)
[2017-05-28] MEDS: ASPIRIN 81 MG TAB.CHEW PO SCH (08:43)
[2017-05-28 11:48] VITALS: BP 115/58
--- NOTE | 2017-05-28 15:00 | NUR ---
Notified MD regarding patient's A1C result. MD aware.
[2017-05-28 15:55] VITALS: BP 107/58
--- NOTE | 2017-05-28 18:00 | NUR ---
Patient is alert, in no distress, no SOB. Patient noted with dry non productive cough, medicated as ordered. Safety measures in place, call light within reach. Will continue to monitor.
[2017-05-28 20:00] VITALS: BP 128/42
[2017-05-28] MEDS: MONTELUKAST SODIUM 10 MG TABLET PO SCH (20:56)
[2017-05-29 04:48] VITALS: BP 125/63
[2017-05-29] MEDS: NORMAL SALINE FLUSH 10 ML DISP.SYRIN IV SCH ×2 (06:24→14:00)
[2017-05-29] MEDS: PANTOPRAZOLE SODIUM 40 MG TABLET.DR PO SCH (06:24)
[2017-05-29] MEDS: FERROUS SULFATE 325 MG TABEC PO SCH (08:20)
[2017-05-29] MEDS: ASPIRIN 81 MG TAB.CHEW PO SCH (08:20)
[2017-05-29] MEDS: OXYBUTYNIN CHLORIDE 5 MG TABLET PO SCH (08:20)
[2017-05-29] MEDS: CITALOPRAM 20 MG TABLET PO SCH (08:20)
[2017-05-29] MEDS: GUAIFENESIN/DEXTROMETHORPHAN 5 ML UDC PO PRN (08:20)
[2017-05-29] MEDS: FUROSEMIDE 20 MG/2 ML VIAL IV SCH (08:20)
--- NOTE | 2017-05-29 09:00 | NUR ---
Patient found sitting on the floor by JESI Dumont and MICHAEL Arenas. Patient is alert, in no distress. Assisted patient back to bed, pt able to stand up, and move extremities. Pt c/o of slight pain on her butt. Addendum: 05/29/17 at 1327 by SHAHIDA MUNGUIA RN Add: Vital signs taken, stable, no sob. Will notify
[2017-05-29 09:09] VITALS: BP 121/85
--- NOTE | 2017-05-29 09:30 | NUR ---
Used glass etcher #[id number] Farsi language. Patient stated she fell from chair to floor and did not hit her head. Patient stated she feels pain on her buttocks. Instructed patient to use call light, ask assistance and not to walk on her own as she is risk for falls. Patient verbalized understanding. Instructed patient not to sit on the edge of the bed but patient refused. Safety measures in place, will continue to monitor.
--- NOTE | 2017-05-29 09:30 | NUR ---
ordered for xray of the hips/pelvis.
--- NOTE | 2017-05-29 10:30 | NUR ---
Daughter at bedside, patient reported no pain to her daughter and stated she did not fall. Discussed with daughter and patient regarding fall risk, safety measures. Daughter/patient verbalized understanding but patient refused to be in bed and prefers to sit on the edge of the bed.
[2017-05-29 11:01] VITALS: BP 119/74
--- NOTE | 2017-05-29 12:15 | NUR ---
Patient refused xray, patient stated she has no pain. MD notified.
[2017-05-29] MEDS ORDERED: FUROSEMIDE 20 MG/2 ML VIAL IV ONE (14:15)
[2017-05-29 15:00] VITALS: BP 123/51
--- NOTE | 2017-05-29 15:20 | NUR ---
Patient to be discharged to [facility]. Belonging list done.
--- NOTE | 2017-05-29 15:30 | NUR ---
Report given to MICHAEL Troncoso from [facility].
--- NOTE | 2017-05-29 16:15 | NUR ---
Patient transported to [facility] by ambulance via gurney. Patient is alert, in no distress, no SOB, VS stable, pt is afebrile Belongings 2 bags and discharge papers transported with the patient.
== END 2017-05-29 16:20 | DRG 190 ==
LOC: ER 15:16 → TELE 17:38 → MED 05-28 12:10
PROVIDERS: ADMIT Internal Medicine; ATTEND Internal Medicine
DX: J44.0 Chronic obstructive pulmonary disease with (acute) lower respiratory infection (principal); I50.33 Acute on chronic diastolic (congestive) heart failure; E44.0 Moderate protein-calorie malnutrition; D68.59 Other primary thrombophilia; F20.9 Schizophrenia, unspecified; Q21.1 Atrial septal defect; E05.90 Thyrotoxicosis, unspecified without thyrotoxic crisis or storm; J20.8 Acute bronchitis due to other specified organisms; I11.0 Hypertensive heart disease with heart failure; E11.9 Type 2 diabetes mellitus without complications; D50.9 Iron deficiency anemia, unspecified; I45.10 Unspecified right bundle-branch block; Z79.82 Long term (current) use of aspirin; Z79.899 Other long term (current) drug therapy; I87.2 Venous insufficiency (chronic) (peripheral); E66.9 Obesity, unspecified; Z68.38 Body mass index [BMI] 38.0-38.9, adult; F41.9 Anxiety disorder, unspecified; M17.11 Unilateral primary osteoarthritis, right knee; G47.33 Obstructive sleep apnea (adult) (pediatric); Z86.73 Personal history of transient ischemic attack (TIA), and cerebral infarction without residual deficits; K21.9 Gastro-esophageal reflux disease without esophagitis; B96.89 Other specified bacterial agents as the cause of diseases classified elsewhere
CPT/HCPCS: 36415; 70030-TC; 71045; 83735; 84100; 85025; 85730; 87040; 87086; 87400; 93005; 97165; A4663; C1758; J1940; J1956; J3490; J7040; J7050

== ENCOUNTER 2017-07-03 20:41 | Inpatient (IN) | payer MEDICARE, OTHER ==
[~2017-07-03] VITALS: Ht 165.1 cm; Wt 98.7 kg
[~2017-07-03 20:41] MED LIST changes: -CITA20TA11 PO; +CITA20TA16 PO; -EXEN5PEN2 SQ; +LEVO500T2 PO; +LIRA0.6P2 SQ; +ROBITUSSIN DM PO; -TEMA7.5C PO
[2017-07-03] MEDS ORDERED: ALBUTEROL SULFATE 2.5 MG/3 ML NEBU ONE (21:40)
[2017-07-03] MEDS ORDERED: IPRATROPIUM BROMIDE 0.5 MG/2.5 ML NEBU ONE (21:41)
[2017-07-03] MEDS ORDERED: IPRATROPIUM BROMIDE 0.5 MG/2.5 ML NEBU NEB ONE (21:45)
[2017-07-03] MEDS ORDERED: ALBUTEROL SULFATE 2.5 MG/3 ML NEBU NEB ONE (21:45)
[2017-07-03 22:11] LABS: BASOPHILS # (AUTO) 0.1 K/uL (0.0-8.0); BASOPHILS % (AUTO) 1.1 % (0.0-2.0); EOSINOPHILS # (AUTO) 0.1 K/uL (0.0-0.7); EOSINOPHILS % (AUTO) 0.8 % (0.0-7.0); HEMATOCRIT 39.8 % (31.2-41.9); HEMOGLOBIN 12.8 g/dL (10.9-14.3); LYMPHOCYTES # (AUTO) 1.4 K/uL (20.0-40.0); LYMPHOCYTES % (AUTO) 20.1 % (20.5-51.5); MEAN CORPUSCULAR HEMOGLOBIN 23.9 uug (24.7-32.8); MEAN CORPUSCULAR HGB CONC 32 g/dL (32.3-35.6); MEAN CORPUSCULAR VOLUME 74.4 fL (75.5-95.3); MONOCYTES # (AUTO) 0.4 K/uL (2.0-10.0); NEUTROPHILS # (AUTO) 4.9 K/uL (1.8-8.9); PLATELET COUNT (AUTO) 249 K/uL (179-408); RED BLOOD CELL COUNT(AUTO) 5.35 MIL/uL (3.63-4.92); WHITE BLOOD COUNT (AUTO) 6.8 K/uL (3.8-11.8)
[2017-07-03 22:12] LABS: POTASSIUM 4.8 mmol/L (3.5-5.1)
[2017-07-03 22:18] LABS: BILIRUBIN,DIRECT 0.1 mg/dL (0.0-0.2); BILIRUBIN,TOTAL 0.4 mg/dL (0.2-1.0); TOTAL PROTEIN, SERUM 7.7 g/dL (6.4-8.2)
[2017-07-03 22:34] LABS: BAND % (MANUAL) 8 % (0-10); LYMPHOCYTES % (MANUAL) 19 % (20-40); MONOCYTES % (MANUAL) 5 % (2-10); NEUTROPHILS % (MANUAL) 68 % (42-75)
[2017-07-03] MEDS ORDERED: methylPREDNISolone SOD SUCC 125 MG/2 ML VIAL IV ONE (23:00)
[2017-07-03] MEDS ORDERED: LEVOFLOXACIN 750 MG/D5W 150 ML PIGGYBACK IV ONE (23:00)
[2017-07-03] MEDS ORDERED: methylPREDNISolone SOD SUCC 125 MG/2 ML VIAL ONE (23:14)
[2017-07-03] MEDS ORDERED: LEVOFLOXACIN 750MG/D5W 150 ML IV ONE (23:15)
[2017-07-04] MEDS ORDERED: ONDANSETRON 4 MG/2 ML VIAL IV PRN (00:15)
[2017-07-04] MEDS ORDERED: ALBUTEROL SULFATE 2.5 MG/3 ML NEBU NEB PRN (00:15)
[2017-07-04] MEDS ORDERED: ROBITUSSIN DM PO SCH (00:15)
[2017-07-04] MEDS ORDERED: IPRATROPIUM BROMIDE 0.5 MG/2.5 ML NEBU NEB PRN (00:15)
[2017-07-04 01:30] VITALS: BP 129/91
[2017-07-04] MEDS: LEVOFLOXACIN 500 MG/D5W 500 MG in PREMIXED 1 EACH IV SCH ×2 (01:30→23:16)
[2017-07-04] MEDS: methylPREDNISolone SOD SUCC 125 MG/2 ML VIAL IV SCH ×4 (01:32→23:16)
[2017-07-04 04:45] VITALS: BP 130/58
[2017-07-04] MEDS: PANTOPRAZOLE SODIUM 40 MG TABLET.DR PO SCH (06:01)
[2017-07-04 06:50] LABS: BASOPHILS % (AUTO) 0.2 % (0.0-2.0); EOSINOPHILS % (AUTO) 0.1 % (0.0-7.0); HEMATOCRIT 40.7 % (31.2-41.9); HEMOGLOBIN 13.1 g/dL (10.9-14.3); LYMPHOCYTES # (AUTO) 0.4 K/uL (20.0-40.0); LYMPHOCYTES % (AUTO) 8.3 % (20.5-51.5); MEAN CORPUSCULAR HEMOGLOBIN 23.9 uug (24.7-32.8); MEAN CORPUSCULAR HGB CONC 32 g/dL (32.3-35.6); MEAN CORPUSCULAR VOLUME 74.2 fL (75.5-95.3); MONOCYTES % (AUTO) 0.8 % (0.0-11.0); NEUTROPHILS # (AUTO) 4.3 K/uL (1.8-8.9); NEUTROPHILS % (AUTO) 90.6 % (38.5-71.5); PLATELET COUNT (AUTO) 226 K/uL (179-408); RED BLOOD CELL COUNT(AUTO) 5.49 MIL/uL (3.63-4.92)
[2017-07-04 07:04] LABS: WHITE BLOOD COUNT (AUTO) 4.7 K/uL (3.8-11.8)
[2017-07-04 07:13] LABS: BILIRUBIN,TOTAL 0.4 mg/dL (0.2-1.0); CREATININE 1.1 mg/dL (0.6-1.3); PHOSPHOROUS 4.2 mg/dL (2.5-4.9); POTASSIUM 4.7 mmol/L (3.5-5.1); TOTAL PROTEIN, SERUM 7.9 g/dL (6.4-8.2)
[2017-07-04 07:47] LABS: BAND % (MANUAL) 6 % (0-10); LYMPHOCYTES % (MANUAL) 11 % (20-40); MONOCYTES % (MANUAL) 1 % (2-10); NEUTROPHILS % (MANUAL) 82 % (42-75)
[2017-07-04] MEDS: DOCUSATE SODIUM 100 MG CAPSULE PO SCH ×2 (08:19→16:03)
[2017-07-04] MEDS: CITALOPRAM 20 MG TABLET PO SCH (08:19)
[2017-07-04] MEDS: MELOXICAM 7.5 MG TABLET PO SCH (08:19)
[2017-07-04] MEDS: ASPIRIN 81 MG TAB.CHEW PO SCH (08:19)
[2017-07-04] MEDS: LOSARTAN POTASSIUM 50 MG TABLET PO SCH (08:20)
[2017-07-04] MEDS ORDERED: Medication Not On Formulary EA (Multivitamins (Multivitamin) 1 EACH) PO SCH (09:00)
[2017-07-04] MEDS ORDERED: Medication Not On Formulary EA (Potassium Chloride (K-Dur) 10 MEQ) PO SCH (09:00)
[2017-07-04] MEDS: OXYBUTYNIN CHLORIDE 5 MG TABLET PO SCH (11:08)
[2017-07-04 11:41] VITALS: BP 108/48
[2017-07-04 15:58] VITALS: BP 103/46
[2017-07-04] MEDS: GUAIFENESIN/DEXTROMETHORPHAN 5 ML UDC PO PRN (16:03)
[2017-07-04 18:41] LABS: *BILIRUBIN,URIN NEGATIVE (NEGATIVE); *BLOOD, URINE Trace-intact (NEGATIVE); *CLARITY,URINE HAZY (CLEAR); *COLOR,URINE YELLOW (YELLOW); *KETONES,URINE NEGATIVE (NEGATIVE); *PROTEIN,URINE NEGATIVE (NEGATIVE); *UROBILINOGEN,URINE 0.2 E.U./dl (NORMAL); LEUKOCYTE ESTERASE ,URINE TRACE (NEGATIVE); NITRITE, URINE NEGATIVE (NEGATIVE); UGLUCOSE NEGATIVE (NEGATIVE)
[2017-07-04 18:51] LABS: BACTERIA,URINE MODERATE /HPF (NONE SEEN); MUCUS,URINE MODERATE /LPF (0-FEW); SQUAMOUS EPITHELIAL CELL,UR MANY /HPF (NONE SEEN)
[2017-07-04] MEDS: MONTELUKAST SODIUM 10 MG TABLET PO SCH (20:31)
[2017-07-04] MEDS: ATORVASTATIN 10 MG TABLET PO SCH (20:31)
[2017-07-04] MEDS: ACETAMINOPHEN 325 MG TABLET PO PRN (20:31)
[2017-07-04 20:40] VITALS: BP 113/51
[2017-07-04] MEDS ORDERED: Medication Not On Formulary EA (Pravastatin Sodium 10 MG) PO SCH (21:00)
[2017-07-04] MEDS ORDERED: DEXTROSE 50% 50 ML DISP.SYRIN IV PRN (23:00)
[2017-07-05 05:24] VITALS: BP 110/55
[2017-07-05] MEDS: PANTOPRAZOLE SODIUM 40 MG TABLET.DR PO SCH (06:17)
[2017-07-05] MEDS: BLOOD SUGAR DIAGNOSTIC 1 EACH STRIP VI SCH ×4 (06:30→20:14)
[2017-07-05] MEDS: CITALOPRAM 20 MG TABLET PO SCH (08:12)
[2017-07-05] MEDS: MELOXICAM 7.5 MG TABLET PO SCH (08:12)
[2017-07-05] MEDS: MULTIVITAMINS,THERAPEUTIC TABLET PO SCH (08:12)
[2017-07-05] MEDS: POTASSIUM CHLORIDE 10 MEQ TAB.PRT.SR PO SCH (08:12)
[2017-07-05] MEDS: LOSARTAN POTASSIUM 50 MG TABLET PO SCH ×2 (08:12→11:15)
[2017-07-05] MEDS: ASPIRIN 81 MG TAB.CHEW PO SCH (08:12)
[2017-07-05] MEDS: DOCUSATE SODIUM 100 MG CAPSULE PO SCH ×2 (08:12→17:00)
[2017-07-05] MEDS: FUROSEMIDE 40 MG TABLET PO SCH (08:12)
[2017-07-05] MEDS: INSULIN REGULAR, HUMAN 300 UNIT/3 ML VIAL SQ PRN ×4 (08:15→20:16)
[2017-07-05] MEDS: methylPREDNISolone SOD SUCC 125 MG/2 ML VIAL IV SCH ×3 (08:51→23:15)
[2017-07-05 10:57] VITALS: BP 145/80
[2017-07-05] MEDS: CEFTRIAXONE 1 G in IV NORMAL SALINE 50 ML IV SCH (13:45)
[2017-07-05 15:07] VITALS: BP 120/49
[2017-07-05] MEDS ORDERED: GUAIFENESIN/DEXTROMETHORPHAN 5 ML UDC PO PRN (15:30)
[2017-07-05] MEDS: GUAIFENESIN/DEXTROMETHORPHAN 5 ML UDC PO PRN (15:52)
[2017-07-05 19:58] VITALS: BP 120/60
[2017-07-05] MEDS: ATORVASTATIN 10 MG TABLET PO SCH (20:29)
[2017-07-05] MEDS: ACETAMINOPHEN 325 MG TABLET PO PRN (20:29)
[2017-07-05] MEDS: MONTELUKAST SODIUM 10 MG TABLET PO SCH (20:29)
[2017-07-06 04:00] VITALS: BP 100/50
[2017-07-06] MEDS: PANTOPRAZOLE SODIUM 40 MG TABLET.DR PO SCH (06:00)
[2017-07-06 07:13] LABS: BASOPHILS % (AUTO) 0.1 % (0.0-2.0); HEMATOCRIT 38.7 % (31.2-41.9); HEMOGLOBIN 12.3 g/dL (10.9-14.3); LYMPHOCYTES # (AUTO) 0.6 K/uL (20.0-40.0); LYMPHOCYTES % (AUTO) 10.1 % (20.5-51.5); MEAN CORPUSCULAR HEMOGLOBIN 23.8 uug (24.7-32.8); MEAN CORPUSCULAR HGB CONC 32 g/dL (32.3-35.6); MEAN CORPUSCULAR VOLUME 74.8 fL (75.5-95.3); MONOCYTES # (AUTO) 0.1 K/uL (2.0-10.0); MONOCYTES % (AUTO) 2.1 % (0.0-11.0); NEUTROPHILS # (AUTO) 5.6 K/uL (1.8-8.9); NEUTROPHILS % (AUTO) 87.7 % (38.5-71.5); PLATELET COUNT (AUTO) 259 K/uL (179-408); RED BLOOD CELL COUNT(AUTO) 5.17 MIL/uL (3.63-4.92)
[2017-07-06 07:36] LABS: WHITE BLOOD COUNT (AUTO) 6.4 K/uL (3.8-11.8)
[2017-07-06] MEDS: BLOOD SUGAR DIAGNOSTIC 1 EACH STRIP VI SCH ×4 (07:36→21:04)
[2017-07-06 07:37] LABS: MAGNESIUM 2.2 mg/dL (1.8-2.4); PHOSPHOROUS 3.6 mg/dL (2.5-4.9); POTASSIUM 4.7 mmol/L (3.5-5.1)
[2017-07-06] MEDS: methylPREDNISolone SOD SUCC 125 MG/2 ML VIAL IV SCH ×2 (08:19→16:20)
[2017-07-06] MEDS: OXYBUTYNIN CHLORIDE 5 MG TABLET PO SCH (08:20)
[2017-07-06] MEDS: FUROSEMIDE 40 MG TABLET PO SCH (08:20)
[2017-07-06] MEDS: CITALOPRAM 20 MG TABLET PO SCH (08:20)
[2017-07-06] MEDS: DOCUSATE SODIUM 100 MG CAPSULE PO SCH ×2 (08:20→16:53)
[2017-07-06] MEDS: MELOXICAM 7.5 MG TABLET PO SCH (08:20)
[2017-07-06] MEDS: POTASSIUM CHLORIDE 10 MEQ TAB.PRT.SR PO SCH (08:20)
[2017-07-06] MEDS: MULTIVITAMINS,THERAPEUTIC TABLET PO SCH (08:20)
[2017-07-06] MEDS: ACETAMINOPHEN 325 MG TABLET PO PRN (08:20)
[2017-07-06] MEDS: ASPIRIN 81 MG TAB.CHEW PO SCH (08:20)
[2017-07-06] MEDS: GUAIFENESIN/DEXTROMETHORPHAN 5 ML UDC PO PRN (08:21)
[2017-07-06] MEDS: LOSARTAN POTASSIUM 50 MG TABLET PO SCH (08:21)
[2017-07-06] MEDS: INSULIN REGULAR, HUMAN 300 UNIT/3 ML VIAL SQ PRN ×3 (08:24→21:05)
[2017-07-06 10:01] LABS: BAND % (MANUAL) 2 % (0-10); LYMPHOCYTES % (MANUAL) 12 % (20-40); NEUTROPHILS % (MANUAL) 86 % (42-75)
[2017-07-06 11:13] VITALS: BP 109/56
[2017-07-06] MEDS: CEFTRIAXONE 1 G in IV NORMAL SALINE 50 ML IV SCH (12:38)
[2017-07-06 14:59] VITALS: BP 117/66
[2017-07-06 20:00] VITALS: BP 117/46
[2017-07-06] MEDS: ATORVASTATIN 10 MG TABLET PO SCH (21:04)
[2017-07-06] MEDS: MONTELUKAST SODIUM 10 MG TABLET PO SCH (21:04)
[2017-07-07] MEDS: methylPREDNISolone SOD SUCC 125 MG/2 ML VIAL IV SCH ×3 (00:16→16:15)
[2017-07-07 04:00] VITALS: BP 106/76
[2017-07-07] MEDS: PANTOPRAZOLE SODIUM 40 MG TABLET.DR PO SCH (06:36)
[2017-07-07] MEDS: BLOOD SUGAR DIAGNOSTIC 1 EACH STRIP VI SCH ×3 (06:36→16:41)
[2017-07-07 08:20] VITALS: BP 94/52
[2017-07-07] MEDS: FUROSEMIDE 40 MG TABLET PO SCH (09:00)
[2017-07-07] MEDS: LOSARTAN POTASSIUM 50 MG TABLET PO SCH (09:00)
[2017-07-07] MEDS: MELOXICAM 7.5 MG TABLET PO SCH (09:05)
[2017-07-07] MEDS: CITALOPRAM 20 MG TABLET PO SCH (09:05)
[2017-07-07] MEDS: MULTIVITAMINS,THERAPEUTIC TABLET PO SCH (09:05)
[2017-07-07] MEDS: DOCUSATE SODIUM 100 MG CAPSULE PO SCH ×2 (09:05→16:43)
[2017-07-07] MEDS: ASPIRIN 81 MG TAB.CHEW PO SCH (09:05)
[2017-07-07] MEDS: POTASSIUM CHLORIDE 10 MEQ TAB.PRT.SR PO SCH (09:05)
[2017-07-07] MEDS: INSULIN REGULAR, HUMAN 300 UNIT/3 ML VIAL SQ PRN ×2 (09:10→16:42)
[2017-07-07 11:34] VITALS: BP 128/66
[2017-07-07] MEDS: ACETAMINOPHEN 325 MG TABLET PO PRN (12:03)
[2017-07-07] MEDS: CEFTRIAXONE 1 G in IV NORMAL SALINE 50 ML IV SCH (13:00)
[2017-07-07] MEDS ORDERED: FUROSEMIDE 20 MG/2 ML VIAL IV ONE (13:15)
[2017-07-07] MEDS ORDERED: LEVO500T2 PO (15:22)
[2017-07-07] MEDS ORDERED: PRED20TA PO (15:22)
[2017-07-07] MEDS ORDERED: LOSA25TA3 PO (15:22)
[2017-07-07 15:34] VITALS: BP 111/52
== END 2017-07-07 20:00 | DRG 193 ==
LOC: ER 20:42 → TELE 07-04 00:25 → MED 07-04 22:00
PROVIDERS: ADMIT Internal Medicine; ATTEND Internal Medicine
DX: J18.9 Pneumonia, unspecified organism (principal); I50.33 Acute on chronic diastolic (congestive) heart failure; E44.0 Moderate protein-calorie malnutrition; D68.59 Other primary thrombophilia; J44.0 Chronic obstructive pulmonary disease with (acute) lower respiratory infection; F20.9 Schizophrenia, unspecified; Q21.1 Atrial septal defect; N39.0 Urinary tract infection, site not specified; J44.1 Chronic obstructive pulmonary disease with (acute) exacerbation; E11.9 Type 2 diabetes mellitus without complications; I11.0 Hypertensive heart disease with heart failure; D50.9 Iron deficiency anemia, unspecified; F03.90 Unspecified dementia, unspecified severity, without behavioral disturbance, psychotic disturbance, mood disturbance, and anxiety; I45.10 Unspecified right bundle-branch block; E66.9 Obesity, unspecified; Z68.37 Body mass index [BMI] 37.0-37.9, adult; G47.33 Obstructive sleep apnea (adult) (pediatric); F41.9 Anxiety disorder, unspecified; E78.5 Hyperlipidemia, unspecified; M17.11 Unilateral primary osteoarthritis, right knee; N32.81 Overactive bladder; Z86.73 Personal history of transient ischemic attack (TIA), and cerebral infarction without residual deficits; I87.2 Venous insufficiency (chronic) (peripheral); R60.0 Localized edema; K21.9 Gastro-esophageal reflux disease without esophagitis; E05.90 Thyrotoxicosis, unspecified without thyrotoxic crisis or storm; F32.9 Major depressive disorder, single episode, unspecified
CPT/HCPCS: 36415; 70030-TC; 71045; 83605; 83735; 84100; 85025; 85730; 87040; 87086; 93005; A4663; J0696; J1815; J1940; J1956; J2930; J3490; J3590; J7040

== ENCOUNTER 2017-11-08 20:30 | Inpatient (IN) | payer MEDICARE, OTHER ==
[~2017-11-08] VITALS: Ht 157.5 cm; Wt 107.1 kg
[~2017-11-08 20:30] MED LIST changes: -FURO-151 PO; -LIRA0.6P2 SQ; +LOSA25TA3 PO; -LOSA50TA3 PO; +PRED20TA PO
[2017-11-08] MEDS ORDERED: ASPIRIN 81 MG TAB.CHEW PO ONE (21:15)
[2017-11-08] MEDS ORDERED: ACETAMINOPHEN ES 500 MG TABLET PO ONE (21:15)
[2017-11-08] MEDS ORDERED: NITROGLYCERIN 0.4 MG/TAB BOTTLE SL ONE ×2 (21:15→21:23)
[2017-11-08] MEDS ORDERED: ALBUTEROL SULFATE 2.5 MG/3 ML NEBU NEB ONE (21:15)
[2017-11-08] MEDS ORDERED: ACETAMINOPHEN ES 500 MG TABLET ONE (21:23)
[2017-11-08] MEDS ORDERED: ASPIRIN 81 MG TAB.CHEW ONE (21:23)
[2017-11-08] MEDS ORDERED: ALBUTEROL SULFATE 2.5 MG/3 ML NEBU ONE (21:35)
[2017-11-08 22:01] LABS: BASOPHILS % (AUTO) 0.8 % (0.0-2.0); EOSINOPHILS # (AUTO) 0.1 K/uL (0.0-0.7); EOSINOPHILS % (AUTO) 1.9 % (0.0-7.0); HEMATOCRIT 41.7 % (31.2-41.9); HEMOGLOBIN 13.6 g/dL (10.9-14.3); LYMPHOCYTES # (AUTO) 1.4 K/uL (20.0-40.0); LYMPHOCYTES % (AUTO) 23.2 % (20.5-51.5); MEAN CORPUSCULAR HEMOGLOBIN 25.3 uug (24.7-32.8); MEAN CORPUSCULAR HGB CONC 33 g/dL (32.3-35.6); MEAN CORPUSCULAR VOLUME 77.5 fL (75.5-95.3); MONOCYTES # (AUTO) 0.4 K/uL (2.0-10.0); MONOCYTES % (AUTO) 6.1 % (0.0-11.0); NEUTROPHILS # (AUTO) 4.2 K/uL (1.8-8.9); PLATELET COUNT (AUTO) 248 K/uL (179-408); RED BLOOD CELL COUNT(AUTO) 5.38 MIL/uL (3.63-4.92); WHITE BLOOD COUNT (AUTO) 6.1 K/uL (3.8-11.8)
[2017-11-08 22:07] LABS: POTASSIUM 4.9 mmol/L (3.5-5.1)
[2017-11-08 22:23] LABS: BILIRUBIN,DIRECT 0.1 mg/dL (0.0-0.2); BILIRUBIN,TOTAL 0.3 mg/dL (0.2-1.0); TOTAL PROTEIN, SERUM 7.7 g/dL (6.4-8.2)
[2017-11-08] MEDS ORDERED: FUROSEMIDE 20 MG/2 ML VIAL IV ONE (22:30)
[2017-11-08] MEDS ORDERED: FUROSEMIDE 40 MG/4 ML VIAL ONE (22:45)
[2017-11-08] MEDS ORDERED: CLONIDINE HCL 0.1 MG TABLET PO ONE (23:15)
[2017-11-08] MEDS ORDERED: CLONIDINE HCL 0.1 MG TABLET ONE (23:34)
[2017-11-08] MEDS: NITROGLYCERIN OINT 1 GM PACKET TP ONE (23:34)
[2017-11-08] MEDS ORDERED: NITROGLYCERIN OINT 1 GM PACKET TP ONE (23:34)
[2017-11-09] MEDS: NITROGLYCERIN OINT 1 GM PACKET TP ONE (00:03)
[2017-11-09] MEDS ORDERED: ALBUTEROL SULFATE 2.5 MG/3 ML NEBU NEB PRN (00:45)
[2017-11-09] MEDS ORDERED: DOCUSATE SODIUM 100 MG CAPSULE PO PRN (00:45)
[2017-11-09] MEDS ORDERED: Z GUARD REMEDY PASTE 57 GM TUBE TOP PRN (00:45)
[2017-11-09] MEDS ORDERED: hydrALAZINE HCL 25 MG TABLET PO PRN (00:45)
[2017-11-09] MEDS ORDERED: MAGNESIUM HYDROXIDE 30 ML LIQUID UDC PO PRN (00:45)
[2017-11-09] MEDS ORDERED: HYDROCODONE/APAP 5-325MG TABLET PO PRN (00:45)
[2017-11-09] MEDS ORDERED: ONDANSETRON 4 MG/2 ML VIAL IV PRN (00:45)
[2017-11-09] MEDS ORDERED: ACETAMINOPHEN 325 MG TABLET PO PRN (00:45)
[2017-11-09 03:09] VITALS: BP 97/61
[2017-11-09] MEDS ORDERED: DEXTROMETHORPHAN PO PRN (04:00)
[2017-11-09] MEDS ORDERED: GUAIFENESIN PO PRN (04:00)
[2017-11-09] MEDS: ASPIRIN 81 MG TAB.CHEW PO SCH (08:32)
[2017-11-09] MEDS: FUROSEMIDE 20 MG/2 ML VIAL IV SCH (08:33)
[2017-11-09] MEDS: OXYBUTYNIN CHLORIDE 5 MG TABLET PO SCH (08:33)
[2017-11-09] MEDS: LOSARTAN POTASSIUM 25 MG TABLET PO SCH (08:33)
[2017-11-09] MEDS: CITALOPRAM 20 MG TABLET PO SCH (08:33)
[2017-11-09 11:20] LABS: BASOPHILS % (AUTO) 0.7 % (0.0-2.0); EOSINOPHILS # (AUTO) 0.1 K/uL (0.0-0.7); EOSINOPHILS % (AUTO) 1.9 % (0.0-7.0); HEMATOCRIT 40.7 % (31.2-41.9); HEMOGLOBIN 13.1 g/dL (10.9-14.3); LYMPHOCYTES % (AUTO) 16.2 % (20.5-51.5); MEAN CORPUSCULAR HEMOGLOBIN 24.8 uug (24.7-32.8); MEAN CORPUSCULAR HGB CONC 32 g/dL (32.3-35.6); MEAN CORPUSCULAR VOLUME 77.2 fL (75.5-95.3); MONOCYTES # (AUTO) 0.5 K/uL (2.0-10.0); MONOCYTES % (AUTO) 8.2 % (0.0-11.0); NEUTROPHILS # (AUTO) 4.3 K/uL (1.8-8.9); PLATELET COUNT (AUTO) 212 K/uL (179-408); RED BLOOD CELL COUNT(AUTO) 5.28 MIL/uL (3.63-4.92); WHITE BLOOD COUNT (AUTO) 5.9 K/uL (3.8-11.8)
[2017-11-09 11:37] LABS: CREATININE 1.1 mg/dL (0.6-1.3); MAGNESIUM 1.9 mg/dL (1.8-2.4); POTASSIUM 4.6 mmol/L (3.5-5.1)
[2017-11-09 11:41] VITALS: BP 92/46
[2017-11-09 15:32] VITALS: BP 119/50
[2017-11-09 20:00] VITALS: BP 119/66
[2017-11-09] MEDS: SIMVASTATIN 10 MG TABLET PO SCH (20:09)
[2017-11-09] MEDS: MONTELUKAST SODIUM 10 MG TABLET PO SCH (20:09)
[2017-11-10] VITALS: BP 115/60
[2017-11-10 04:00] VITALS: BP 101/50
[2017-11-10 06:49] LABS: BASOPHILS % (AUTO) 0.5 % (0.0-2.0); EOSINOPHILS # (AUTO) 0.2 K/uL (0.0-0.7); HEMATOCRIT 41.4 % (31.2-41.9); HEMOGLOBIN 13.3 g/dL (10.9-14.3); LYMPHOCYTES # (AUTO) 1.2 K/uL (20.0-40.0); LYMPHOCYTES % (AUTO) 19.3 % (20.5-51.5); MEAN CORPUSCULAR HEMOGLOBIN 24.9 uug (24.7-32.8); MEAN CORPUSCULAR HGB CONC 32 g/dL (32.3-35.6); MEAN CORPUSCULAR VOLUME 77.3 fL (75.5-95.3); MONOCYTES # (AUTO) 0.3 K/uL (2.0-10.0); MONOCYTES % (AUTO) 5.4 % (0.0-11.0); NEUTROPHILS # (AUTO) 4.6 K/uL (1.8-8.9); NEUTROPHILS % (AUTO) 71.8 % (38.5-71.5); PLATELET COUNT (AUTO) 254 K/uL (179-408); RED BLOOD CELL COUNT(AUTO) 5.35 MIL/uL (3.63-4.92); WHITE BLOOD COUNT (AUTO) 6.4 K/uL (3.8-11.8)
[2017-11-10 07:00] LABS: CREATININE 0.9 mg/dL (0.6-1.3); PHOSPHOROUS 4.2 mg/dL (2.5-4.9); POTASSIUM 4.4 mmol/L (3.5-5.1)
[2017-11-10] MEDS: CITALOPRAM 20 MG TABLET PO SCH (08:35)
[2017-11-10] MEDS: LOSARTAN POTASSIUM 25 MG TABLET PO SCH (08:36)
[2017-11-10] MEDS: ASPIRIN 81 MG TAB.CHEW PO SCH (08:36)
[2017-11-10] MEDS: FUROSEMIDE 20 MG/2 ML VIAL IV SCH (08:37)
[2017-11-10] MEDS ORDERED: GUAIFENESIN/DEXTROMETHORPHAN 5 ML UDC PO PRN (08:45)
[2017-11-10 11:41] VITALS: BP 98/42
[2017-11-10] MEDS ORDERED: FUROSEMIDE 20 MG/2 ML VIAL IV ONE (13:15)
[2017-11-10] MEDS ORDERED: FUROSEMIDE 40 MG/4 ML VIAL IV ONE (13:30)
[2017-11-10 15:24] VITALS: BP 110/44
[2017-11-10 20:00] VITALS: BP 143/64
[2017-11-10] MEDS: SIMVASTATIN 10 MG TABLET PO SCH (20:34)
[2017-11-10] MEDS: MONTELUKAST SODIUM 10 MG TABLET PO SCH (20:34)
[2017-11-10] MEDS: MUPIROCIN 2% OINT 22 GM TUBE NS SCH (20:34)
[2017-11-11] VITALS: BP 125/56
[2017-11-11 04:00] VITALS: BP 117/51
[2017-11-11 07:03] LABS: PHOSPHOROUS 4.3 mg/dL (2.5-4.9); POTASSIUM 4.5 mmol/L (3.5-5.1)
[2017-11-11 07:11] LABS: BASOPHILS % (AUTO) 0.6 % (0.0-2.0); EOSINOPHILS # (AUTO) 0.2 K/uL (0.0-0.7); EOSINOPHILS % (AUTO) 2.5 % (0.0-7.0); HEMATOCRIT 41.3 % (31.2-41.9); HEMOGLOBIN 13.3 g/dL (10.9-14.3); LYMPHOCYTES # (AUTO) 1.4 K/uL (20.0-40.0); LYMPHOCYTES % (AUTO) 22.5 % (20.5-51.5); MEAN CORPUSCULAR HEMOGLOBIN 24.9 uug (24.7-32.8); MEAN CORPUSCULAR HGB CONC 32 g/dL (32.3-35.6); MEAN CORPUSCULAR VOLUME 77.3 fL (75.5-95.3); MONOCYTES # (AUTO) 0.4 K/uL (2.0-10.0); MONOCYTES % (AUTO) 6.4 % (0.0-11.0); NEUTROPHILS # (AUTO) 4.2 K/uL (1.8-8.9); PLATELET COUNT (AUTO) 227 K/uL (179-408); RED BLOOD CELL COUNT(AUTO) 5.34 MIL/uL (3.63-4.92); WHITE BLOOD COUNT (AUTO) 6.2 K/uL (3.8-11.8)
[2017-11-11] MEDS: OXYBUTYNIN CHLORIDE 5 MG TABLET PO SCH (08:36)
[2017-11-11] MEDS: CITALOPRAM 20 MG TABLET PO SCH (08:36)
[2017-11-11] MEDS: LOSARTAN POTASSIUM 25 MG TABLET PO SCH (08:37)
[2017-11-11] MEDS: FUROSEMIDE 20 MG/2 ML VIAL IV SCH (08:37)
[2017-11-11] MEDS: MUPIROCIN 2% OINT 22 GM TUBE NS SCH (08:37)
[2017-11-11] MEDS: ASPIRIN 81 MG TAB.CHEW PO SCH (08:38)
[2017-11-11 11:48] VITALS: BP 95/49
== END 2017-11-11 14:55 | DRG 291 ==
LOC: ER 20:34 → TELE 11-09 01:00
PROVIDERS: ADMIT Internal Medicine; ATTEND Internal Medicine
DX: I11.0 Hypertensive heart disease with heart failure (principal); E43 Unspecified severe protein-calorie malnutrition; E66.2 Morbid (severe) obesity with alveolar hypoventilation; Z68.41 Body mass index [BMI] 40.0-44.9, adult; E87.3 Alkalosis; I50.31 Acute diastolic (congestive) heart failure; E11.9 Type 2 diabetes mellitus without complications; D50.9 Iron deficiency anemia, unspecified; I87.2 Venous insufficiency (chronic) (peripheral); J44.9 Chronic obstructive pulmonary disease, unspecified; I25.10 Atherosclerotic heart disease of native coronary artery without angina pectoris; K21.9 Gastro-esophageal reflux disease without esophagitis; F03.90 Unspecified dementia, unspecified severity, without behavioral disturbance, psychotic disturbance, mood disturbance, and anxiety; E05.90 Thyrotoxicosis, unspecified without thyrotoxic crisis or storm; R26.9 Unspecified abnormalities of gait and mobility
CPT/HCPCS: 36415; 70030-TC; 71045; 83735; 84100; 85025; 85730; 93005; 93307; A4663; A9150; J1940; J7030

== ENCOUNTER 2018-08-12 22:54 | Inpatient (IN) | payer MEDICARE, OTHER ==
[~2018-08-12] VITALS: Ht 152.4 cm; Wt 101.2 kg
[~2018-08-12 22:54] MED LIST changes: -IPRA3AMP IH; +IPRA3AMP23 IH; -LEVO500T2 PO; -POTA-10 PO; -PRED20TA PO
--- NOTE | 2018-08-12 23:11 | NUR ---
Patient BIB EMS from [facility] for worsening BLE edema and abnormal CXR (RLL infiltrate), patient is noted with 2 + Edema to BLE and has auditory wheezing upon arrival to ER. She is currently on 4LPM via n/c and is unable to tolerate laying flat due to orthopnea. Patient is farsi speaking and requires an journeyman pipe fitter. There is an journeyman pipe fitter present on the unit, and is currently assisting the ER MD with further patient evaluation.
[2018-08-12] MEDS ORDERED: CITA10TA9 PO (23:20)
[2018-08-12] MEDS ORDERED: ACET325C3 PO (23:20)
[2018-08-12] MEDS ORDERED: ALBU18HF2 IH (23:20)
[2018-08-12] MEDS ORDERED: PANT40TA4 PO (23:20)
[2018-08-12] MEDS ORDERED: METF-440 PO (23:20)
[2018-08-12] MEDS ORDERED: ISOS30TA6 PO (23:20)
[2018-08-12] MEDS ORDERED: DOCU100C36 PO (23:20)
[2018-08-12] MEDS ORDERED: OXYB5TAB11 PO (23:20)
[2018-08-12] MEDS ORDERED: DULA1.5P SQ (23:20)
[2018-08-12] MEDS ORDERED: FURO-151 PO ×2 (23:20→23:33)
[2018-08-12] MEDS ORDERED: FLUT1BLS IH (23:20)
[2018-08-12] MEDS ORDERED: PRAV20TA PO (23:20)
[2018-08-12] MEDS ORDERED: NITR0.4T48 SL (23:20)
[2018-08-12] MEDS ORDERED: MONT10TA22 PO (23:20)
[2018-08-12] MEDS ORDERED: POLY17PO4 PO (23:20)
[2018-08-12] MEDS ORDERED: ASPI-605 PO (23:20)
[2018-08-12] MEDS ORDERED: GUAI237L83 PO (23:20)
[2018-08-12] MEDS ORDERED: IPRA0.2S6 NEB (23:20)
[2018-08-12] MEDS ORDERED: MULT1TAB73 PO (23:20)
[2018-08-12] MEDS ORDERED: LEVO500P10 IV (23:33)
[2018-08-12 23:35] LABS: BASOPHILS # (AUTO) 0.1 K/uL (0.0-8.0); BASOPHILS % (AUTO) 0.8 % (0.0-2.0); EOSINOPHILS # (AUTO) 0.1 K/uL (0.0-0.7); EOSINOPHILS % (AUTO) 1.8 % (0.0-7.0); HEMATOCRIT 43.4 % (31.2-41.9); HEMOGLOBIN 13.8 g/dL (10.9-14.3); LYMPHOCYTES # (AUTO) 1.6 K/uL (20.0-40.0); LYMPHOCYTES % (AUTO) 24.7 % (20.5-51.5); MEAN CORPUSCULAR HEMOGLOBIN 23.6 uug (24.7-32.8); MEAN CORPUSCULAR HGB CONC 32 g/dL (32.3-35.6); MEAN CORPUSCULAR VOLUME 74.2 fL (75.5-95.3); MONOCYTES # (AUTO) 0.5 K/uL (2.0-10.0); NEUTROPHILS # (AUTO) 4.3 K/uL (1.8-8.9); NEUTROPHILS % (AUTO) 65.7 % (38.5-71.5); PLATELET COUNT (AUTO) 284 K/uL (179-408); RED BLOOD CELL COUNT(AUTO) 5.85 MIL/uL (3.63-4.92); WHITE BLOOD COUNT (AUTO) 6.5 K/uL (3.8-11.8)
--- NOTE | 2018-08-12 23:37 | NUR ---
Xray at bedside.
--- NOTE | 2018-08-12 23:37 | NUR ---
Urine collected and sent to ER Lab, patient was able to go without the need for catheterization. Cath order d/c per ER MD isntruction.
--- NOTE | 2018-08-12 23:38 | NUR ---
Phlebotomy collected serum labs, blood culture, lactic acid. MRSA provided to program technician per facility protocol since the patient comes from LTC facility
[2018-08-12 23:44] LABS: *BILIRUBIN,URIN NEGATIVE (NEGATIVE); *KETONES,URINE NEGATIVE (NEGATIVE); *UROBILINOGEN,URINE 0.2 E.U./dl (NORMAL); LEUKOCYTE ESTERASE ,URINE 1+ (NEGATIVE); NITRITE, URINE NEGATIVE (NEGATIVE); UGLUCOSE NEGATIVE (NEGATIVE)
[2018-08-12 23:46] LABS: CARBON DIOXIDE 33 mmol/L (21-32); CHLORIDE 93 mmol/L (98-107); CREATININE 0.8 mg/dL (0.6-1.3); GLUCOSE 89 mg/dL (74-106); POTASSIUM 4.4 mmol/L (3.5-5.1); UREA NITROGEN, BLOOD 9 mg/dL (7-18)
[2018-08-12 23:51] LABS: *BLOOD, URINE TRACE (NEGATIVE); *CLARITY,URINE HAZY (CLEAR)
[2018-08-12 23:52] LABS: ALANINE AMINOTRANSFERASE 16 U/L (14-59); ALKALINE PHOSPHATASE 56 U/L (50-136); ASPARTATE AMINOTRANSFERASE 27 U/L (15-37); BILIRUBIN,DIRECT 0.1 mg/dL (0.0-0.2); BILIRUBIN,TOTAL 0.5 mg/dL (0.2-1.0); TOTAL PROTEIN, SERUM 7.6 g/dL (6.4-8.2)
[2018-08-12 23:52] LABS: *COLOR,URINE STRAW (YELLOW)
[2018-08-12 23:53] LABS: BACTERIA,URINE FEW /HPF (NONE SEEN); RBC,URINE 0-3 /HPF (0-3); SQUAMOUS EPITHELIAL CELL,UR MODERATE /HPF (NONE SEEN)
[2018-08-13] VITALS (7 sets, daily range): BP systolic 98–110; BP diastolic 34–55
[2018-08-13] MEDS ORDERED: PIPERACILLIN SODIUM/TAZOBACTAM 3.375 G in IV DEXTROSE 5% 50 ML IV ONE (00:15)
[2018-08-13] MEDS ORDERED: PIPERACILLIN/TAZOBACTAM/D5W 50 ML IV ONE (00:16)
--- NOTE | 2018-08-13 00:19 | NUR ---
IV Abx initiated, well tolerated by patient. Patient states she has had Zosyn infusion in the past and is not allergic to it. Radiology department contacted in order to expedite the read on patients Xrays. Awaiting further update regarding imaging results at this time.
--- NOTE | 2018-08-13 00:22 | NUR ---
Spoke to Carolyn in [facility], requested time for BNP results to show up in EMR. Per Carolyn, the result will populate in 20 minutes as the sample is still in processing.
[2018-08-13] MEDS ORDERED: VANCOMYCIN 1G/D5W 200 ML PIGGYBACK IV ONE (00:30)
--- NOTE | 2018-08-13 00:44 | NUR ---
Panel call placed to [facility] per ER MD instruction. Per ER Lining Machine Tender confirmation, patient is to be admitted under [facility].
[2018-08-13] MEDS ORDERED: FUROSEMIDE 20 MG/2 ML VIAL IV ONE (00:45)
--- NOTE | 2018-08-13 00:46 | NUR ---
Call back pending from Dr Bauman ([facility]) at this time.
--- NOTE | 2018-08-13 00:50 | NUR ---
Report given to Aury RODRIGUEZ on Telemetry. patient to be admitted to 3rd floor, room 310.
--- NOTE | 2018-08-13 01:03 | NUR ---
2nd call placed to [facility] for panel call.
--- NOTE | 2018-08-13 01:11 | NUR ---
LEIGHANN LARIOS on phone with Dr Bauman now.
--- NOTE | 2018-08-13 01:25 | NUR ---
Admitted a 72 years old female with Diagnosis of CHF/UTI. Patient AAOx4. Mainly Farsi speaking. Noted with moist non-productive cough. Wheezing and crackles heard on right lower lobe upon auscultation. In no acute distress. On O2 at 4LPM via NC in place. O2 sat at 96%. With bilateral 4+ pitting edema on both lower extremities. Encourage to elevate while sitting on the chair. IV site on right FA and left AC intact and patent. IV Vanco running at this time. Routine admission care done. Plan of care initiated. Safety measure initiated and call mary within reach.
--- NOTE | 2018-08-13 01:34 | NUR ---
Vancomycin to continue on inpatient unit. Endorsed to Mariza Fallon
[2018-08-13] MEDS ORDERED: ENOXAPARIN SODIUM 30 MG/0.3 ML DISP.SYRIN SUBCUT SCH (02:00)
[2018-08-13] MEDS ORDERED: ALBUTEROL SULFATE 2.5 MG/3 ML NEBU NEB PRN (02:00)
[2018-08-13] MEDS ORDERED: MIRALAX 17 GM POWD.PACK PO PRN (02:00)
[2018-08-13] MEDS ORDERED: IPRATROPIUM BROMIDE 0.5 MG/2.5 ML NEBU NEB PRN (02:00)
[2018-08-13] MEDS ORDERED: Medication Not On Formulary EA (Acetaminophen 650 MG) PO PRN (02:00)
[2018-08-13] MEDS ORDERED: NITROGLYCERIN 0.4 MG/TAB BOTTLE SL PRN (02:00)
[2018-08-13] MEDS ORDERED: CEFTRIAXONE 1 G VIAL ONE (02:28)
[2018-08-13] MEDS: CEFTRIAXONE 1 G in IV DEXTROSE 5% 50 ML IV SCH (02:57)
[2018-08-13] MEDS ORDERED: ENOXAPARIN SODIUM 30 MG/0.3 ML DISP.SYRIN SUBCUT ONE (03:00)
--- NOTE | 2018-08-13 06:04 | NUR ---
Patient refuses to go/lay in bed. Unable to obtain daily weight. Admitting weight is 247 lbs. Addendum: 08/13/18 at 0606 by VISHAL FLORES RN Amended: Links added.
--- NOTE | 2018-08-13 06:24 | NUR ---
Patient resting at the bedside on chair. Refuses to go back into bed. Denies pain. No signs of acute at this time. Patient receiving 4 L on NC. SR with occasional PVC on tele monitor. Safety and comfort measures implemented and effective. Continue plan of care.
[2018-08-13] MEDS: PANTOPRAZOLE SODIUM 40 MG TABLET.DR PO SCH (06:31)
[2018-08-13 06:40] LABS: BASOPHILS # (AUTO) 0.1 K/uL (0.0-8.0); BASOPHILS % (AUTO) 0.7 % (0.0-2.0); EOSINOPHILS # (AUTO) 0.1 K/uL (0.0-0.7); EOSINOPHILS % (AUTO) 1.5 % (0.0-7.0); HEMATOCRIT 41.6 % (31.2-41.9); HEMOGLOBIN 13.2 g/dL (10.9-14.3); LYMPHOCYTES # (AUTO) 1.5 K/uL (20.0-40.0); LYMPHOCYTES % (AUTO) 19.9 % (20.5-51.5); MEAN CORPUSCULAR HEMOGLOBIN 23.6 uug (24.7-32.8); MEAN CORPUSCULAR HGB CONC 32 g/dL (32.3-35.6); MONOCYTES # (AUTO) 0.5 K/uL (2.0-10.0); MONOCYTES % (AUTO) 6.1 % (0.0-11.0); NEUTROPHILS # (AUTO) 5.5 K/uL (1.8-8.9); NEUTROPHILS % (AUTO) 71.8 % (38.5-71.5); PLATELET COUNT (AUTO) 260 K/uL (179-408); RED BLOOD CELL COUNT(AUTO) 5.62 MIL/uL (3.63-4.92); WHITE BLOOD COUNT (AUTO) 7.6 K/uL (3.8-11.8)
[2018-08-13 06:53] LABS: ALANINE AMINOTRANSFERASE 12 U/L (14-59); ALKALINE PHOSPHATASE 54 U/L (50-136); ASPARTATE AMINOTRANSFERASE 11 U/L (15-37); BILIRUBIN,TOTAL 0.4 mg/dL (0.2-1.0); CARBON DIOXIDE 31 mmol/L (21-32); CHLORIDE 92 mmol/L (98-107); CREATININE 0.9 mg/dL (0.6-1.3); GLUCOSE 90 mg/dL (74-106); MAGNESIUM 1.6 mg/dL (1.8-2.4); PHOSPHOROUS 3.8 mg/dL (2.5-4.9); POTASSIUM 3.7 mmol/L (3.5-5.1); TOTAL PROTEIN, SERUM 7.2 g/dL (6.4-8.2); UREA NITROGEN, BLOOD 8 mg/dL (7-18)
[2018-08-13 06:59] LABS: IRON, SERUM 29 ug/dL (50-175)
--- NOTE | 2018-08-13 07:42 | NUR ---
patient received on the bedside chair, sleeping, refuses go back to bed per shift mgr RN, on Tele, sinus Rhythm,no acute distress noted, IV left AC 18 gauge, and right forearm 24 gauge intact and patient, O2 at 4 L nasal cannula,all safety and comfort measures are implemented, will continue to monitor
[2018-08-13] MEDS: CITALOPRAM 10 MG TABLET PO SCH (08:54)
[2018-08-13] MEDS: MULTIVITAMINS,THERAPEUTIC TABLET PO SCH (08:55)
[2018-08-13] MEDS: ASPIRIN EC 81 MG TABLET.DR PO SCH (08:58)
[2018-08-13] MEDS: DOCUSATE SODIUM 100 MG CAPSULE PO SCH ×2 (08:58→17:13)
[2018-08-13] MEDS ORDERED: FUROSEMIDE 40 MG/4 ML VIAL IV SCH (09:00)
[2018-08-13] MEDS: FLUTICASONE/VILANTEROL 1 EACH BLST.W.DEV IH SCH (09:00)
[2018-08-13] MEDS ORDERED: Medication Not On Formulary EA (Multivitamins (Multivitamin) 1 EACH) PO SCH (09:00)
[2018-08-13] MEDS ORDERED: METFORMIN HCL 500 MG TABLET PO SCH (09:00)
[2018-08-13] MEDS ORDERED: ISOSORBIDE MONONITRATE 30 MG TAB.SR.24H PO SCH (09:00)
[2018-08-13] MEDS: GUAIFENESIN/DEXTROMETHORPHAN 5 ML UDC PO PRN (11:02)
[2018-08-13] MEDS: AZITHROMYCIN IV 500 MG in IV DEXTROSE 5% 250 ML IV SCH (12:58)
--- NOTE | 2018-08-13 13:37 | NUR ---
Patient refused 2decho
[2018-08-13] MEDS ORDERED: MAGNESIUM OXIDE 400 MG TABLET PO ONE (15:30)
--- NOTE | 2018-08-13 15:43 | NUR ---
patient refuses to go to bed since yesterday, she is on the bedside chair since then, chair was changed to malorie chair,now feet are elevated she is resting comfortably, all safety and comfort measures provided
[2018-08-13] MEDS: METFORMIN HCL 500 MG TABLET PO SCH (17:13)
[2018-08-13] MEDS: FUROSEMIDE 40 MG/4 ML VIAL IV SCH (17:13)
--- NOTE | 2018-08-13 19:30 | NUR ---
Received patient sitting up on gerichair, comfortable. Offered to help patient transfer to bed, however patient declined. Noted patient is Farsi speaking but able to make needs known in Japanese. She has oxygen support at 4lpm via nasal cannula, maintained. She has IV accesses, one at left antecubital vein to saline lock and another at right forearm, 24g to saline lock, both are patent and intact. Patient made comfortable on the gerichair and ensured safety. Will continue to monitor.
[2018-08-13] MEDS: MONTELUKAST SODIUM 10 MG TABLET PO SCH (20:58)
[2018-08-13] MEDS: ATORVASTATIN 10 MG TABLET PO SCH (20:58)
[2018-08-13] MEDS ORDERED: PRAVASTATIN SODIUM 10 MG PO SCH (21:00)
[2018-08-13] MEDS: ENOXAPARIN SODIUM 40 MG/0.4 ML DISP.SYRIN SQ SCH (21:00)
[2018-08-14] MEDS: CEFTRIAXONE 1 G in IV DEXTROSE 5% 50 ML IV SCH (01:54)
[2018-08-14] MEDS: GUAIFENESIN/DEXTROMETHORPHAN 5 ML UDC PO PRN ×2 (01:56→16:57)
[2018-08-14 03:44] VITALS: BP 111/52
--- NOTE | 2018-08-14 06:07 | NUR ---
Patient declined to transfer to bed to be able to get weight through bed scale. Unable to obtain daily weight. Addendum: 08/14/18 at 0608 by JOSSELYN VALENZUELA RN Amended: Links added.
--- NOTE | 2018-08-14 06:08 | NUR ---
Patient declined to transfer to bed to be able to use bed scale. unable to obtain daily weight. 247lb is the weight upon admission. Addendum: 08/14/18 at 0609 by JOSSELYN VALENZUELA RN Amended: Links added.
[2018-08-14] MEDS: PANTOPRAZOLE SODIUM 40 MG TABLET.DR PO SCH (06:34)
--- NOTE | 2018-08-14 06:36 | NUR ---
Patient remained sitting up on gerichair, comfortable and slept intermittently. Patient refused to sleep on the hospital bed. Oxygen support at 4lpm via nasal cannula, maintained. IV accesses at left antecubital vein to saline lock and another at right forearm, 24g to saline lock, both are patent and intact. Patient made comfortable on the gerichair and ensured safety. No complaints made.
--- NOTE | 2018-08-14 07:30 | NUR ---
RECEIVED PATIENT ASLEEP ON GERICHAIR, ON TELE SINUS RHYTHM WITH FREQ PVCS, NO ACUTE DISTRESS NOTED. IV ACCESS ON RIGHT FOREARM #24 AND LEFT AC #18 INTACT AND PATENT. ON O2 VIA NC @ 4LPM, PER NIGHT SHIF PATIENT REFUSES TO GET IN BED, PREFERS CHAIR AT BEDSIDE. BM X 1 LAST NIGHT. COMFORT MEASURES PROVIDED. CALL LIGHT WITHIN REACH. WILL CONTINUE TO MONITOR CLOSELY.
[2018-08-14] MEDS: CITALOPRAM 10 MG TABLET PO SCH (08:58)
[2018-08-14] MEDS: OXYBUTYNIN CHLORIDE 5 MG TABLET PO SCH (08:58)
[2018-08-14] MEDS: METFORMIN HCL 500 MG TABLET PO SCH (08:58)
[2018-08-14] MEDS: ASPIRIN EC 81 MG TABLET.DR PO SCH (08:58)
[2018-08-14] MEDS: DOCUSATE SODIUM 100 MG CAPSULE PO SCH ×2 (08:59→16:50)
[2018-08-14] MEDS: MULTIVITAMINS,THERAPEUTIC TABLET PO SCH (08:59)
[2018-08-14] MEDS: FUROSEMIDE 40 MG/4 ML VIAL IV SCH ×3 (08:59→16:50)
[2018-08-14] MEDS: FLUTICASONE/VILANTEROL 1 EACH BLST.W.DEV IH SCH (09:00)
[2018-08-14 09:42] LABS: BASOPHILS # (AUTO) 0.1 K/uL (0.0-8.0); BASOPHILS % (AUTO) 1.3 % (0.0-2.0); CARBON DIOXIDE 35 mmol/L (21-32); CHLORIDE 92 mmol/L (98-107); EOSINOPHILS # (AUTO) 0.1 K/uL (0.0-0.7); EOSINOPHILS % (AUTO) 2.4 % (0.0-7.0); GLUCOSE 132 mg/dL (74-106); HEMATOCRIT 40.8 % (31.2-41.9); HEMOGLOBIN 12.9 g/dL (10.9-14.3); LYMPHOCYTES % (AUTO) 16.5 % (20.5-51.5); MEAN CORPUSCULAR HEMOGLOBIN 23.3 uug (24.7-32.8); MEAN CORPUSCULAR HGB CONC 32 g/dL (32.3-35.6); MEAN CORPUSCULAR VOLUME 73.6 fL (75.5-95.3); MONOCYTES # (AUTO) 0.4 K/uL (2.0-10.0); MONOCYTES % (AUTO) 6.6 % (0.0-11.0); NEUTROPHILS # (AUTO) 4.3 K/uL (1.8-8.9); NEUTROPHILS % (AUTO) 73.2 % (38.5-71.5); PLATELET COUNT (AUTO) 251 K/uL (179-408); POTASSIUM 3.7 mmol/L (3.5-5.1); RED BLOOD CELL COUNT(AUTO) 5.54 MIL/uL (3.63-4.92); UREA NITROGEN, BLOOD 10 mg/dL (7-18); WHITE BLOOD COUNT (AUTO) 5.8 K/uL (3.8-11.8)
--- NOTE | 2018-08-14 09:45 | NUR ---
RECEIVED ORDERS FROM DR. READ, FLUID RESTRICTION 1000ML/DAY, ORDERS NOTED AND CARRIED OUT.
[2018-08-14] MEDS ORDERED: DEXTROSE 50% 50 ML DISP.SYRIN IV PRN (10:30)
[2018-08-14 11:11] VITALS: BP 100/39
[2018-08-14] MEDS: BLOOD SUGAR DIAGNOSTIC 1 EACH STRIP VI SCH ×3 (11:34→20:08)
[2018-08-14] MEDS ORDERED: ALBUTEROL SULFATE 2.5 MG/3 ML NEBU NEB SCH (12:00)
[2018-08-14] MEDS: AZITHROMYCIN IV 500 MG in IV DEXTROSE 5% 250 ML IV SCH (12:46)
[2018-08-14] MEDS: ALBUTEROL SULFATE 2.5 MG/ 0.5 ML NEBU NEB SCH ×2 (13:36→19:09)
[2018-08-14] MEDS: IPRATROPIUM BROMIDE 0.5 MG/2.5 ML NEBU NEB SCH ×2 (13:36→19:09)
[2018-08-14] MEDS: methylPREDNISolone SOD SUCC 40 MG/ML VIAL IV SCH ×2 (14:17→21:13)
[2018-08-14 15:03] VITALS: BP 102/42
--- NOTE | 2018-08-14 18:50 | NUR ---
PATIENT ON GERICHAIR, NO SIGNIFICANT PAMELA THROUGHOUT SHIFT. ON O2 @ 4LPM VIA NC WELL TOLERATED. DAUGHTER AT BEDSIDE. ALL NEEDS ATTENDED AND ANTICIPATED. CALL LIGHT WITHIN REACH WILL ENDORSE TO INCOMING SHIFT.
[2018-08-14 20:00] VITALS: BP 113/91
--- NOTE | 2018-08-14 20:00 | NUR ---
Received patient awake resting on the gerichair. Patient refused to be transferred on to the hospital bed. Advised to elevate legs on foot rest. Mainly Farsi speaking but able to verbalize needs. Receiving 4L NC. IV on R FA and L AC intact and patent. Vitals signs stable. No distress noted. Denies pain. Safety and comfort measures implemented. Call light within reach. Patient kept comfortable. All needs met. Will continue to monitor throughout shift.
[2018-08-14] MEDS: ATORVASTATIN 10 MG TABLET PO SCH (20:02)
[2018-08-14] MEDS: MONTELUKAST SODIUM 10 MG TABLET PO SCH (20:02)
[2018-08-14] MEDS: MUPIROCIN 2% OINT 22 GM TUBE NS SCH (20:03)
[2018-08-14] MEDS: ENOXAPARIN SODIUM 40 MG/0.4 ML DISP.SYRIN SQ SCH (20:11)
[2018-08-14] MEDS: INSULIN REGULAR, HUMAN 300 UNIT/3 ML VIAL SQ PRN (20:14)
[2018-08-14] MEDS ORDERED: MUPIROCIN 2% OINT 22 GM TUBE NS SCH (21:00)
[2018-08-14] MEDS: DOXYCYCLINE HYCLATE 100 MG TABLET PO SCH (21:16)
[2018-08-14] MEDS: LEVOFLOXACIN 500 MG TABLET PO SCH (21:16)
[2018-08-15] VITALS: BP 115/58
[2018-08-15] MEDS: ALBUTEROL SULFATE 2.5 MG/ 0.5 ML NEBU NEB SCH ×4 (00:30→20:00)
[2018-08-15] MEDS: IPRATROPIUM BROMIDE 0.5 MG/2.5 ML NEBU NEB SCH ×4 (00:30→20:00)
[2018-08-15 04:00] VITALS: BP 108/40
[2018-08-15] MEDS: methylPREDNISolone SOD SUCC 40 MG/ML VIAL IV SCH ×3 (05:24→21:57)
--- NOTE | 2018-08-15 06:05 | NUR ---
Patient refuses to go/lay in bed. Unable to obtain daily weight. Admitting weight is 247 lbs. Addendum: 08/15/18 at 0605 by SHAQ ADAMS RN Amended: Links added.
--- NOTE | 2018-08-15 06:23 | NUR ---
Patient slept intermittently on malorie chair between care. No acute distress noted. Vitals signs stable. No change in status. Safety and comfort measures implemented and effective. Call light within reach. All needs met. Continue plan of care.
[2018-08-15] MEDS: PANTOPRAZOLE SODIUM 40 MG TABLET.DR PO SCH (06:33)
[2018-08-15] MEDS: BLOOD SUGAR DIAGNOSTIC 1 EACH STRIP VI SCH ×4 (06:33→21:50)
--- NOTE | 2018-08-15 08:10 | NUR ---
Received report from PM shift. Patient awake, alert, and orineted x4, sitting upright in chair. Patient complaining of cough but O2 sat is 95% at 4l/min via NC . VS wnl and patient is stable. Will continue to monitor
[2018-08-15] MEDS: ASPIRIN EC 81 MG TABLET.DR PO SCH (09:15)
[2018-08-15] MEDS: FUROSEMIDE 40 MG/4 ML VIAL IV SCH ×3 (09:15→17:35)
[2018-08-15] MEDS: DOCUSATE SODIUM 100 MG CAPSULE PO SCH ×2 (09:16→17:35)
[2018-08-15] MEDS: MULTIVITAMINS,THERAPEUTIC TABLET PO SCH (09:16)
[2018-08-15] MEDS: CITALOPRAM 10 MG TABLET PO SCH (09:16)
[2018-08-15] MEDS: DOXYCYCLINE HYCLATE 100 MG TABLET PO SCH ×2 (09:16→21:57)
[2018-08-15] MEDS: INSULIN REGULAR, HUMAN 300 UNIT/3 ML VIAL SQ PRN ×4 (09:32→22:01)
[2018-08-15] MEDS: MUPIROCIN 2% OINT 22 GM TUBE NS SCH ×2 (09:33→22:14)
[2018-08-15] MEDS: FLUTICASONE/VILANTEROL 1 EACH BLST.W.DEV IH SCH (09:33)
[2018-08-15 10:10] LABS: BASOPHILS % (AUTO) 0.2 % (0.0-2.0); LYMPHOCYTES # (AUTO) 0.3 K/uL (20.0-40.0); LYMPHOCYTES % (AUTO) 8.5 % (20.5-51.5); MEAN CORPUSCULAR HEMOGLOBIN 23.3 uug (24.7-32.8); MEAN CORPUSCULAR HGB CONC 32 g/dL (32.3-35.6); MEAN CORPUSCULAR VOLUME 73.3 fL (75.5-95.3); MONOCYTES % (AUTO) 0.7 % (0.0-11.0); NEUTROPHILS # (AUTO) 3.2 K/uL (1.8-8.9); NEUTROPHILS % (AUTO) 90.6 % (38.5-71.5); PLATELET COUNT (AUTO) 263 K/uL (179-408); WHITE BLOOD COUNT (AUTO) 3.6 K/uL (3.8-11.8)
[2018-08-15 10:14] LABS: CARBON DIOXIDE 31 mmol/L (21-32); CHLORIDE 88 mmol/L (98-107); CREATININE 0.9 mg/dL (0.6-1.3); GLUCOSE 185 mg/dL (74-106); POTASSIUM 3.7 mmol/L (3.5-5.1); UREA NITROGEN, BLOOD 12 mg/dL (7-18)
[2018-08-15 12:01] VITALS: BP 98/57
[2018-08-15 16:00] VITALS: BP 118/44
--- NOTE | 2018-08-15 18:46 | NUR ---
Patient has been cooperative with care, all needs met. patient continues to refuse to lay in bed. Frequent diaper changes due to excessive urine output. Skin intact, and frequently asked to get up and move around. Patient tolerating ambulation with standby assist. Currently in bedside chair, in no distress, call light in reach.
[2018-08-15 20:00] VITALS: BP 128/55
[2018-08-15] MEDS: LEVOFLOXACIN 500 MG TABLET PO SCH (21:57)
[2018-08-15] MEDS: ATORVASTATIN 10 MG TABLET PO SCH (21:57)
[2018-08-15] MEDS: MONTELUKAST SODIUM 10 MG TABLET PO SCH (21:57)
[2018-08-15] MEDS: ENOXAPARIN SODIUM 40 MG/0.4 ML DISP.SYRIN SQ SCH (21:59)
[2018-08-16] MEDS: IPRATROPIUM BROMIDE 0.5 MG/2.5 ML NEBU NEB SCH ×4 (01:12→19:31)
[2018-08-16] MEDS: ALBUTEROL SULFATE 2.5 MG/ 0.5 ML NEBU NEB SCH ×4 (01:12→19:31)
[2018-08-16 04:00] VITALS: BP 134/55
[2018-08-16] MEDS: methylPREDNISolone SOD SUCC 40 MG/ML VIAL IV SCH ×2 (06:07→20:37)
[2018-08-16] MEDS: PANTOPRAZOLE SODIUM 40 MG TABLET.DR PO SCH (06:36)
[2018-08-16] MEDS: BLOOD SUGAR DIAGNOSTIC 1 EACH STRIP VI SCH ×4 (06:38→20:50)
[2018-08-16 06:40] LABS: BASOPHILS % (AUTO) 0.1 % (0.0-2.0); HEMATOCRIT 42.2 % (31.2-41.9); HEMOGLOBIN 13.7 g/dL (10.9-14.3); LYMPHOCYTES # (AUTO) 0.4 K/uL (20.0-40.0); LYMPHOCYTES % (AUTO) 6.3 % (20.5-51.5); MEAN CORPUSCULAR HEMOGLOBIN 23.7 uug (24.7-32.8); MEAN CORPUSCULAR HGB CONC 33 g/dL (32.3-35.6); MEAN CORPUSCULAR VOLUME 72.9 fL (75.5-95.3); MONOCYTES # (AUTO) 0.2 K/uL (2.0-10.0); NEUTROPHILS # (AUTO) 5.4 K/uL (1.8-8.9); NEUTROPHILS % (AUTO) 90.6 % (38.5-71.5); PLATELET COUNT (AUTO) 302 K/uL (179-408); RED BLOOD CELL COUNT(AUTO) 5.78 MIL/uL (3.63-4.92)
--- NOTE | 2018-08-16 06:47 | NUR ---
Patient has been cooperative with care, all needs met. patient ambulated to the bathroom with walker and stand-by assistance to have a BM. Patient refuses to lay in bed, sitting in the chair and around. Patient tolerating ambulation with standby assist. Currently in bedside chair watching TV. No distress, tolerated her medications well, no adverse reactions noted, call light is within reach.
[2018-08-16 07:45] LABS: CARBON DIOXIDE 33 mmol/L (21-32); CHLORIDE 87 mmol/L (98-107); GLUCOSE 153 mg/dL (74-106); UREA NITROGEN, BLOOD 18 mg/dL (7-18)
[2018-08-16 07:56] VITALS: BP 115/52
[2018-08-16] MEDS: ASPIRIN EC 81 MG TABLET.DR PO SCH (08:00)
[2018-08-16] MEDS: CITALOPRAM 10 MG TABLET PO SCH (08:00)
[2018-08-16] MEDS: DOCUSATE SODIUM 100 MG CAPSULE PO SCH ×2 (08:00→17:16)
[2018-08-16] MEDS: OXYBUTYNIN CHLORIDE 5 MG TABLET PO SCH (08:01)
[2018-08-16] MEDS: FLUTICASONE/VILANTEROL 1 EACH BLST.W.DEV IH SCH (08:01)
[2018-08-16] MEDS: MULTIVITAMINS,THERAPEUTIC TABLET PO SCH (08:01)
[2018-08-16] MEDS: FUROSEMIDE 40 MG/4 ML VIAL IV SCH ×3 (08:01→17:16)
[2018-08-16] MEDS: DOXYCYCLINE HYCLATE 100 MG TABLET PO SCH ×2 (08:01→20:37)
[2018-08-16] MEDS: MUPIROCIN 2% OINT 22 GM TUBE NS SCH ×2 (08:02→20:37)
[2018-08-16] MEDS: INSULIN REGULAR, HUMAN 300 UNIT/3 ML VIAL SQ PRN ×4 (08:05→20:45)
[2018-08-16 11:56] VITALS: BP 107/49
[2018-08-16 13:00] VITALS: BP 122/49
[2018-08-16 16:27] VITALS: BP 108/36
[2018-08-16] MEDS: SPIRONOLACTONE 25 MG TABLET PO SCH (17:16)
--- NOTE | 2018-08-16 18:32 | NUR ---
pt ambulates to restroom with assist, pt is tolerating activity saturating at 90%, family at bedside. Continue with fluid restriction. shows no signs of respiratory distress. Continue to monitor.
--- NOTE | 2018-08-16 19:25 | NUR ---
RECEIVED PT AWAKE, ALERT AND ORIENTEDX3. PT SEATED ON THE CHAIR. PT SHOWS NO SIGNS OF ACUTE DISTRESS. PT IV INTACT. SAFETY AND COMFORT PROVIDED. WILL CONTINUE TO MONITOR.
[2018-08-16] MEDS ORDERED: METOLAZONE 5 MG TABLET PO ONE (19:45)
[2018-08-16] MEDS: MONTELUKAST SODIUM 10 MG TABLET PO SCH (20:36)
[2018-08-16] MEDS: ATORVASTATIN 10 MG TABLET PO SCH (20:36)
[2018-08-16] MEDS: LEVOFLOXACIN 500 MG TABLET PO SCH (20:36)
[2018-08-16 21:07] VITALS: BP 119/64
[2018-08-16] MEDS: ENOXAPARIN SODIUM 40 MG/0.4 ML DISP.SYRIN SQ SCH (21:08)
[2018-08-16] MEDS ORDERED: METOLAZONE 5 MG TABLET ONE (21:30)
[2018-08-16] MEDS: ACETAMINOPHEN 325 MG TABLET PO PRN (21:49)
[2018-08-17 00:30] VITALS: BP 115/56
[2018-08-17] MEDS: IPRATROPIUM BROMIDE 0.5 MG/2.5 ML NEBU NEB SCH ×4 (00:31→19:16)
[2018-08-17] MEDS: ALBUTEROL SULFATE 2.5 MG/ 0.5 ML NEBU NEB SCH ×4 (00:31→19:16)
[2018-08-17 05:13] VITALS: BP 100/56
[2018-08-17] MEDS: PANTOPRAZOLE SODIUM 40 MG TABLET.DR PO SCH (06:34)
[2018-08-17] MEDS: BLOOD SUGAR DIAGNOSTIC 1 EACH STRIP VI SCH ×4 (06:35→20:38)
--- NOTE | 2018-08-17 06:36 | NUR ---
PT SLEPT INTERMITTENTLY. PRESCRIBED MEDICATION GIVEN AND PT TOLERATED IT WELL.COOPERATIVE WITH CARE. SAFETY AND COMFORT PROVIDED. ALL NEEDS ARE MET.. WILL ENDORSE TO INCOMING NURSE FOR CONTINUITY OF CARE.
[2018-08-17 06:50] LABS: BASOPHILS % (AUTO) 0.1 % (0.0-2.0); HEMATOCRIT 41.9 % (31.2-41.9); HEMOGLOBIN 13.4 g/dL (10.9-14.3); LYMPHOCYTES # (AUTO) 0.5 K/uL (20.0-40.0); LYMPHOCYTES % (AUTO) 5.8 % (20.5-51.5); MEAN CORPUSCULAR HEMOGLOBIN 23.2 uug (24.7-32.8); MEAN CORPUSCULAR HGB CONC 32 g/dL (32.3-35.6); MEAN CORPUSCULAR VOLUME 72.4 fL (75.5-95.3); MONOCYTES # (AUTO) 0.3 K/uL (2.0-10.0); MONOCYTES % (AUTO) 3.3 % (0.0-11.0); NEUTROPHILS # (AUTO) 7.3 K/uL (1.8-8.9); NEUTROPHILS % (AUTO) 90.8 % (38.5-71.5); PLATELET COUNT (AUTO) 328 K/uL (179-408); RED BLOOD CELL COUNT(AUTO) 5.79 MIL/uL (3.63-4.92); WHITE BLOOD COUNT (AUTO) 8.1 K/uL (3.8-11.8)
[2018-08-17 06:59] LABS: ALANINE AMINOTRANSFERASE 16 U/L (14-59); ALKALINE PHOSPHATASE 41 U/L (50-136); ASPARTATE AMINOTRANSFERASE 17 U/L (15-37); BILIRUBIN,TOTAL 0.4 mg/dL (0.2-1.0); CARBON DIOXIDE 33 mmol/L (21-32); CHLORIDE 89 mmol/L (98-107); CREATININE 1.2 mg/dL (0.6-1.3); GLUCOSE 155 mg/dL (74-106); MAGNESIUM 1.6 mg/dL (1.8-2.4); PHOSPHOROUS 3.9 mg/dL (2.5-4.9); POTASSIUM 3.6 mmol/L (3.5-5.1); TOTAL PROTEIN, SERUM 7.4 g/dL (6.4-8.2); UREA NITROGEN, BLOOD 26 mg/dL (7-18)
[2018-08-17 07:48] VITALS: BP 130/60
[2018-08-17] MEDS ORDERED: POTASSIUM CHLORIDE 20 MEQ POWDER PACKET PO ONE (08:00)
--- NOTE | 2018-08-17 08:03 | NUR ---
PATIENT IS AWAKE, FEELING BETTER , NO S/S OF DISTRESS, ALL SAFETY AND COMFORT MEASURES ARE IMPLEMENTED, SHE SEATS IN THE BEDSIDE CHAIR WITH ELEVATED FEET , WILL CONTINUE TO MONITOR
[2018-08-17] MEDS: INSULIN REGULAR, HUMAN 300 UNIT/3 ML VIAL SQ PRN ×4 (08:34→20:40)
[2018-08-17 08:44] LABS: BAND % (MANUAL) 3 % (0-10); LYMPHOCYTES % (MANUAL) 6 % (20-40); MONOCYTES % (MANUAL) 3 % (2-10); NEUTROPHILS % (MANUAL) 88 % (42-75)
[2018-08-17] MEDS: methylPREDNISolone SOD SUCC 40 MG/ML VIAL IV SCH ×2 (08:57→20:23)
[2018-08-17] MEDS: FUROSEMIDE 40 MG/4 ML VIAL IV SCH ×2 (08:58→17:02)
[2018-08-17] MEDS: SPIRONOLACTONE 25 MG TABLET PO SCH (08:59)
[2018-08-17] MEDS: CITALOPRAM 10 MG TABLET PO SCH (08:59)
[2018-08-17] MEDS: MULTIVITAMINS,THERAPEUTIC TABLET PO SCH (08:59)
[2018-08-17] MEDS: ASPIRIN EC 81 MG TABLET.DR PO SCH (08:59)
[2018-08-17] MEDS: DOXYCYCLINE HYCLATE 100 MG TABLET PO SCH ×2 (09:00→20:19)
[2018-08-17] MEDS: DOCUSATE SODIUM 100 MG CAPSULE PO SCH ×2 (09:00→17:01)
[2018-08-17] MEDS: FLUTICASONE/VILANTEROL 1 EACH BLST.W.DEV IH SCH (09:17)
[2018-08-17] MEDS: MUPIROCIN 2% OINT 22 GM TUBE NS SCH ×2 (09:17→20:22)
[2018-08-17] MEDS: MAGNESIUM SULFATE/D5W 100 ML IV SCH ×2 (09:22→09:59)
[2018-08-17 11:35] VITALS: BP 123/60
[2018-08-17 15:05] VITALS: BP 108/52
--- NOTE | 2018-08-17 18:41 | NUR ---
PATIENT IS SITING AT THE EDGE OF THE BED COMFORTABLY, NO DISTRESS NOTED, PATIENT IS ON FLUID RESTRICTION 1000 ML PER DAY, COMPLAINT WITH PLAN OF CARE, ON ACCU CHECK, LAST BS WAS 168, GIVEN 3 UNITS INSULIN, ALL MEASURES OF SAFETY AND COMFORT ARE IMPLEMENTED
--- NOTE | 2018-08-17 19:30 | NUR ---
Received patient awake, alert and oriented sitting up in bed with legs dangling. Noted patient is on room air, saturating at 94%. IV access at left antecubital vein to saline lock, patent and intact. Fluid restriction, maintained. Bed in low position, locked, side rails up x 2, call light within reach. Noise and lights subdued. Will continue to monitor.
[2018-08-17] MEDS: CULTURELLE CAPSULE PO SCH (20:18)
[2018-08-17] MEDS: LEVOFLOXACIN 500 MG TABLET PO SCH (20:18)
[2018-08-17] MEDS: ACETAMINOPHEN 325 MG TABLET PO PRN (20:19)
[2018-08-17] MEDS: MONTELUKAST SODIUM 10 MG TABLET PO SCH (20:19)
[2018-08-17] MEDS: ATORVASTATIN 10 MG TABLET PO SCH (20:19)
[2018-08-17] MEDS: ENOXAPARIN SODIUM 40 MG/0.4 ML DISP.SYRIN SQ SCH (20:39)
[2018-08-17 20:45] VITALS: BP 107/43
[2018-08-18 00:24] VITALS: BP 104/54
[2018-08-18] MEDS: ALBUTEROL SULFATE 2.5 MG/ 0.5 ML NEBU NEB SCH ×4 (00:34→19:19)
[2018-08-18] MEDS: IPRATROPIUM BROMIDE 0.5 MG/2.5 ML NEBU NEB SCH ×4 (00:34→19:19)
[2018-08-18 05:10] VITALS: BP 113/56
--- NOTE | 2018-08-18 06:17 | NUR ---
Patient transferred and remained on gerichair asleep all night. Not distress noted. Patient tolerating room air. IV accesses at left antecubital vein to saline lock. Patient made comfortable on the gerichair and ensured safety. No complaints made. Urine specimen sent to lab.
[2018-08-18] MEDS: BLOOD SUGAR DIAGNOSTIC 1 EACH STRIP VI SCH ×4 (06:37→20:39)
[2018-08-18] MEDS: PANTOPRAZOLE SODIUM 40 MG TABLET.DR PO SCH (06:37)
[2018-08-18 06:40] LABS: BASOPHILS % (AUTO) 0.1 % (0.0-2.0); HEMOGLOBIN 14.6 g/dL (10.9-14.3); LYMPHOCYTES # (AUTO) 0.8 K/uL (20.0-40.0); LYMPHOCYTES % (AUTO) 9.9 % (20.5-51.5); MEAN CORPUSCULAR HEMOGLOBIN 23.6 uug (24.7-32.8); MEAN CORPUSCULAR HGB CONC 33 g/dL (32.3-35.6); MEAN CORPUSCULAR VOLUME 72.7 fL (75.5-95.3); MONOCYTES # (AUTO) 0.4 K/uL (2.0-10.0); MONOCYTES % (AUTO) 4.5 % (0.0-11.0); NEUTROPHILS # (AUTO) 7.1 K/uL (1.8-8.9); NEUTROPHILS % (AUTO) 85.5 % (38.5-71.5); PLATELET COUNT (AUTO) 356 K/uL (179-408); RED BLOOD CELL COUNT(AUTO) 6.18 MIL/uL (3.63-4.92); WHITE BLOOD COUNT (AUTO) 8.3 K/uL (3.8-11.8)
[2018-08-18 06:44] LABS: CARBON DIOXIDE 34 mmol/L (21-32); CHLORIDE 84 mmol/L (98-107); CREATININE 1.2 mg/dL (0.6-1.3); GLUCOSE 181 mg/dL (74-106); PHOSPHOROUS 4.4 mg/dL (2.5-4.9); POTASSIUM 3.7 mmol/L (3.5-5.1); UREA NITROGEN, BLOOD 27 mg/dL (7-18); URIC ACID 6.9 mg/dL (2.6-6.0)
[2018-08-18 07:04] LABS: LYMPHOCYTES % (MANUAL) 12 % (20-40); MONOCYTES % (MANUAL) 5 % (2-10); NEUTROPHILS % (MANUAL) 83 % (42-75)
[2018-08-18] MEDS: INSULIN REGULAR, HUMAN 300 UNIT/3 ML VIAL SQ PRN ×4 (07:55→20:44)
[2018-08-18] MEDS: SPIRONOLACTONE 25 MG TABLET PO SCH (08:00)
[2018-08-18] MEDS: ASPIRIN EC 81 MG TABLET.DR PO SCH (08:00)
[2018-08-18] MEDS: OXYBUTYNIN CHLORIDE 5 MG TABLET PO SCH (08:00)
[2018-08-18] MEDS: MULTIVITAMINS,THERAPEUTIC TABLET PO SCH (08:00)
[2018-08-18] MEDS: DOCUSATE SODIUM 100 MG CAPSULE PO SCH ×2 (08:01→17:13)
[2018-08-18] MEDS: DOXYCYCLINE HYCLATE 100 MG TABLET PO SCH ×2 (08:01→20:27)
[2018-08-18] MEDS: CITALOPRAM 10 MG TABLET PO SCH (08:01)
[2018-08-18] MEDS: CULTURELLE CAPSULE PO SCH ×2 (08:01→20:27)
[2018-08-18] MEDS: methylPREDNISolone SOD SUCC 40 MG/ML VIAL IV SCH ×2 (08:02→20:27)
[2018-08-18] MEDS: FUROSEMIDE 40 MG/4 ML VIAL IV SCH ×2 (08:02→17:13)
[2018-08-18] MEDS: MUPIROCIN 2% OINT 22 GM TUBE NS SCH ×2 (08:02→20:38)
[2018-08-18] MEDS: FLUTICASONE/VILANTEROL 1 EACH BLST.W.DEV IH SCH (08:03)
[2018-08-18] MEDS: ACETAMINOPHEN 325 MG TABLET PO PRN ×2 (08:06→20:28)
--- NOTE | 2018-08-18 10:00 | NUR ---
PATIENT IS NON COMPLIANT WITH FLUID RESTRICTIONS KEEPS ASKING DIFFERENT PEOPLE FOR WATER DESPITE THE FACT THAT SHE HAS BEEN EDUCATED THAT HER FLUIDS ARE RESTRICTED TO ONLY 1000ML/DAY .
[2018-08-18 11:37] VITALS: BP 115/55
[2018-08-18 16:02] VITALS: BP 119/51
--- NOTE | 2018-08-18 18:25 | NUR ---
REMAIN ON DIURETICS ORDERED BUT REMAINS NON COMPLIANT PATIENTS DAUGHTER WAS HERE AND WAS EDUCATED TO ENCOURAGE PATIENT TO LIMIT HER FLUIDS INTAKE AND ELEVATE LOWER EXTREMITIES TO REDUCE EDEMA.
[2018-08-18 19:43] VITALS: BP 114/55
--- NOTE | 2018-08-18 19:45 | NUR ---
PATIENT AWAKE NO SOB NO CHEST PAIN. NO COUGHING NO CONGESTION NOTED, PATIENT PREFER TO STAY SEATED IN RECLINING CHAIR. PATIENT REFUSED TO LAY IN BED, CONTINUE TO TEACH PATIENT TO ELEVATE BOTH LOWER EXTREMITIES DUE TO PITTING EDEMA. PATIENT NON COMPLIANT WITH FLUID RESTRICTIONS, LIKE TO DRINK MORE THAN PRESCRIBED AMOUNT, CONT TO ORIENT PATIENT ABOUT THE FLUID RESTRICTIONS. CONT TO MONITOR.
[2018-08-18] MEDS: LEVOFLOXACIN 500 MG TABLET PO SCH (20:27)
[2018-08-18] MEDS: MONTELUKAST SODIUM 10 MG TABLET PO SCH (20:27)
[2018-08-18] MEDS: ATORVASTATIN 10 MG TABLET PO SCH (20:27)
[2018-08-18] MEDS: ENOXAPARIN SODIUM 40 MG/0.4 ML DISP.SYRIN SQ SCH (20:38)
[2018-08-19] MEDS: ALBUTEROL SULFATE 2.5 MG/ 0.5 ML NEBU NEB SCH ×4 (01:07→19:34)
[2018-08-19] MEDS: IPRATROPIUM BROMIDE 0.5 MG/2.5 ML NEBU NEB SCH ×4 (01:07→19:34)
[2018-08-19 05:03] VITALS: BP 128/43
--- NOTE | 2018-08-19 05:54 | NUR ---
PATIENT AWAKE NO SOB NO CHEST PAIN. PATIENT PREFER TO STAY ON RECLINING CHAIR, REFUSED TO LAY ON BED. ASSISTED WITH TOILETING, KEPT CLEAN AND DRY. ENCOURAGED PATIENT TO ELEVATE BOTH LOWER EXTREMITIES DUE TO EDEMA. PATIENT NON COMPLIANT WITH CARE, PATIENT ELEVATED BOTH EXTREMITIES ON FOOT STOOL, THEN LATER LOWER EXTREMITIES ON THE FLOOR. CALL LIGHT WITHIN REACH.
[2018-08-19] MEDS: BLOOD SUGAR DIAGNOSTIC 1 EACH STRIP VI SCH ×4 (06:11→20:32)
[2018-08-19 06:41] LABS: CARBON DIOXIDE 38 mmol/L (21-32); CHLORIDE 83 mmol/L (98-107); CREATININE 1.3 mg/dL (0.6-1.3); GLUCOSE 160 mg/dL (74-106); POTASSIUM 4.2 mmol/L (3.5-5.1); UREA NITROGEN, BLOOD 29 mg/dL (7-18)
[2018-08-19] MEDS: PANTOPRAZOLE SODIUM 40 MG TABLET.DR PO SCH (06:46)
[2018-08-19 06:55] LABS: RED BLOOD CELL COUNT(AUTO) 6.43 MIL/UL (4.2-5.4); WHITE BLOOD COUNT (AUTO) 8.6 K/UL (4.0-11.2)
[2018-08-19 06:56] LABS: BASOPHILS % (AUTO) 0.2 % (0.0-2.0); HEMOGLOBIN 15.1 G/DL (12.0-16.0); LYMPHOCYTES # (AUTO) 0.9 K/UL (0.8-4.8); LYMPHOCYTES % (AUTO) 10.2 % (20.5-51.5); MEAN CORPUSCULAR HEMOGLOBIN 23.5 UUG (27.0-31.0); MEAN CORPUSCULAR HGB CONC 32 g/dL (32.0-37.0); MEAN CORPUSCULAR VOLUME 73.1 FL (81.0-99.0); MONOCYTES # (AUTO) 0.3 K/UL (0.1-1.30); MONOCYTES % (AUTO) 4.1 % (0.0-11.0); NEUTROPHILS # (AUTO) 7.4 K/UL (1.8-8.9); NEUTROPHILS % (AUTO) 85.5 % (38.5-71.5); PLATELET COUNT (AUTO) 340 K/UL (150-450)
[2018-08-19 07:46] LABS: LYMPHOCYTES % (MANUAL) 13 % (20-40); MONOCYTES % (MANUAL) 1 % (2-10); NEUTROPHILS % (MANUAL) 86 % (42-75)
[2018-08-19] MEDS: INSULIN REGULAR, HUMAN 300 UNIT/3 ML VIAL SQ PRN ×4 (07:48→20:33)
[2018-08-19] MEDS: CULTURELLE CAPSULE PO SCH ×2 (08:00→20:25)
[2018-08-19] MEDS: FUROSEMIDE 40 MG/4 ML VIAL IV SCH ×2 (08:00→16:25)
[2018-08-19] MEDS: ASPIRIN EC 81 MG TABLET.DR PO SCH (08:00)
[2018-08-19] MEDS: CITALOPRAM 10 MG TABLET PO SCH (08:00)
[2018-08-19] MEDS: methylPREDNISolone SOD SUCC 40 MG/ML VIAL IV SCH ×2 (08:00→20:37)
--- NOTE | 2018-08-19 08:00 | NUR ---
AWAKE ALERT UP ON THE CHAIR REMAIN ON FLUID RESTRICTIONS ORDERED CONTINUE TO EDUCATE PATIENT ON RESTRICTIONS ORDERED BUT SHE REMAINS NON COMPLIANT ASKING ANYONE AND EVERY ONE FOR WATER.BOTH FEET ARE SWOLLEN ELEVATED ON A STOOL AND A PILLOW PATIENT REFUSES TO GET INTO THE BED TO REST AND ELEVATE FEET CONTINUE WITH DIURETICS ORDERED AND EFFECTIVE MADE COMFORTABLE AND WILL CONTINUE TO OBSERVE.
[2018-08-19] MEDS: DOXYCYCLINE HYCLATE 100 MG TABLET PO SCH ×2 (08:01→20:25)
[2018-08-19] MEDS: MUPIROCIN 2% OINT 22 GM TUBE NS SCH (08:01)
[2018-08-19] MEDS: DOCUSATE SODIUM 100 MG CAPSULE PO SCH ×2 (08:01→16:25)
[2018-08-19] MEDS: SPIRONOLACTONE 25 MG TABLET PO SCH (08:01)
[2018-08-19] MEDS: MULTIVITAMINS,THERAPEUTIC TABLET PO SCH (08:01)
[2018-08-19] MEDS: FLUTICASONE/VILANTEROL 1 EACH BLST.W.DEV IH SCH (08:02)
--- NOTE | 2018-08-19 11:00 | NUR ---
PATIENT SEEN AND EXAMINED BY DR TRAVIS RIGGS AND HE STATED TO INSERT DUMONT CATHETER FOR ACCURATE FLUID OUTPUT SPOKE TO THE PATIENT THROUGH AN PLATEN PRESS OPERATOR APPRENTICE AND PATIENT REFUSED ALL EXPLAINATIONS TO ENCOURAGE PATIENT FAILED DR TRAVIS RIGGS NOTIFIED THAT PATIENT REFUSED DUMONT CATHETER INSERTION HE ORDERED WITH NO NEW ORDERS AT THIS TIME.PATIENT IS CONTINENT BUT INCONTINENT AT TIMES DIAPER CHANGED 2 TIMES TODAY EVEN THOUGH SHE REQUESTS TO BE ASSISTED TO THE BATHROOM.WILL CONTINUE TO OBSERVE AND PROVIDE SAFE AND THERAPEUTIC ENVIRONMENT AT ALL TIMES
[2018-08-19] MEDS: NYSTATIN POWDER 15 GM BOTTLE TOP SCH ×2 (11:25→20:40)
[2018-08-19 11:45] VITALS: BP 115/56
--- NOTE | 2018-08-19 12:53 | NUR ---
SLEEPING ON THE CHAIR ON AND OFF REFUSED TO BE ASSISTED BACK INTO HER BED STOOL PLACED UNDER HER FEET AND ELEVATED TO ASSIST REDUCE SWELLING.
[2018-08-19 16:13] VITALS: BP 113/51
--- NOTE | 2018-08-19 18:00 | NUR ---
PATIENT REMAINS NON COMPLIANT CALLING EVERY ONE PASSING BY FOR WATER DESPITE ALL EXPLAINATIONS FOR THE NEED FOR FLUID RESTRICTION.
--- NOTE | 2018-08-19 19:37 | NUR ---
Received patient awake, alert and oriented sitting up in gerichair with legs dangling. Noted patient is on room air, saturating at 94% IV access at right hand to saline lock, patent and intact. Fluid restriction reiterated to patient. Noise and lights subdued. Will continue to monitor. Ensured safety and comfort.
[2018-08-19 20:00] VITALS: BP 123/62
[2018-08-19] MEDS: ACETAMINOPHEN 325 MG TABLET PO PRN (20:25)
[2018-08-19] MEDS: MONTELUKAST SODIUM 10 MG TABLET PO SCH (20:25)
[2018-08-19] MEDS: LEVOFLOXACIN 500 MG TABLET PO SCH (20:25)
[2018-08-19] MEDS: ATORVASTATIN 10 MG TABLET PO SCH (20:25)
[2018-08-19] MEDS: ENOXAPARIN SODIUM 40 MG/0.4 ML DISP.SYRIN SQ SCH (20:34)
[2018-08-20] MEDS: IPRATROPIUM BROMIDE 0.5 MG/2.5 ML NEBU NEB SCH ×3 (00:55→13:30)
[2018-08-20] MEDS: ALBUTEROL SULFATE 2.5 MG/ 0.5 ML NEBU NEB SCH ×3 (00:55→13:30)
[2018-08-20 03:40] VITALS: BP 123/46
--- NOTE | 2018-08-20 05:46 | NUR ---
Patient remained on gerichair asleep all night. No distress noted. Patient with oxygen support at 2lpm via nasal cannula. IV access at right hand vein to saline lock. Patient made comfortable on the gerichair and ensured safety. No complaints made.
[2018-08-20] MEDS: PANTOPRAZOLE SODIUM 40 MG TABLET.DR PO SCH (06:35)
[2018-08-20] MEDS: BLOOD SUGAR DIAGNOSTIC 1 EACH STRIP VI SCH ×2 (06:35→11:35)
[2018-08-20 06:43] LABS: BASOPHILS % (AUTO) 0.2 % (0.0-2.0); EOSINOPHILS % (AUTO) 0.1 % (0.0-7.0); HEMATOCRIT 46.1 % (31.2-41.9); LYMPHOCYTES # (AUTO) 0.7 K/uL (20.0-40.0); LYMPHOCYTES % (AUTO) 8.7 % (20.5-51.5); MEAN CORPUSCULAR HEMOGLOBIN 23.5 uug (24.7-32.8); MEAN CORPUSCULAR HGB CONC 33 g/dL (32.3-35.6); MEAN CORPUSCULAR VOLUME 72.3 fL (75.5-95.3); MONOCYTES # (AUTO) 0.3 K/uL (2.0-10.0); MONOCYTES % (AUTO) 4.1 % (0.0-11.0); NEUTROPHILS # (AUTO) 7.4 K/uL (1.8-8.9); NEUTROPHILS % (AUTO) 86.9 % (38.5-71.5); PLATELET COUNT (AUTO) 340 K/uL (179-408); RED BLOOD CELL COUNT(AUTO) 6.37 MIL/uL (3.63-4.92); WHITE BLOOD COUNT (AUTO) 8.5 K/uL (3.8-11.8)
[2018-08-20 06:59] LABS: CARBON DIOXIDE 34 mmol/L (21-32); CHLORIDE 83 mmol/L (98-107); CREATININE 1.2 mg/dL (0.6-1.3); GLUCOSE 181 mg/dL (74-106); PHOSPHOROUS 4.8 mg/dL (2.5-4.9); POTASSIUM 3.3 mmol/L (3.5-5.1); UREA NITROGEN, BLOOD 33 mg/dL (7-18)
[2018-08-20] MEDS: FUROSEMIDE 40 MG/4 ML VIAL IV SCH (08:50)
[2018-08-20] MEDS: ACETAMINOPHEN 325 MG TABLET PO PRN (08:50)
[2018-08-20] MEDS: ASPIRIN EC 81 MG TABLET.DR PO SCH (08:50)
[2018-08-20] MEDS: CULTURELLE CAPSULE PO SCH (08:50)
[2018-08-20] MEDS: methylPREDNISolone SOD SUCC 40 MG/ML VIAL IV SCH (08:50)
[2018-08-20] MEDS: DOCUSATE SODIUM 100 MG CAPSULE PO SCH (08:50)
[2018-08-20] MEDS: MULTIVITAMINS,THERAPEUTIC TABLET PO SCH (08:51)
[2018-08-20] MEDS: DOXYCYCLINE HYCLATE 100 MG TABLET PO SCH (08:51)
[2018-08-20] MEDS: OXYBUTYNIN CHLORIDE 5 MG TABLET PO SCH (08:51)
[2018-08-20] MEDS: NYSTATIN POWDER 15 GM BOTTLE TOP SCH (08:52)
[2018-08-20] MEDS: FLUTICASONE/VILANTEROL 1 EACH BLST.W.DEV IH SCH (08:54)
[2018-08-20] MEDS: SPIRONOLACTONE 25 MG TABLET PO SCH (08:57)
[2018-08-20] MEDS: INSULIN REGULAR, HUMAN 300 UNIT/3 ML VIAL SQ PRN ×2 (09:07→13:05)
--- NOTE | 2018-08-20 10:06 | NUR ---
Received patient awake, alert and oriented sitting up in gerichair with legs dangling. Noted patient is on room air, IV access at right hand to saline lock, patent and intact. Fluid restriction noted. Will continue to monitor. and provide safety and comfort at all times
[2018-08-20] MEDS ORDERED: POTASSIUM CHLORIDE 20 MEQ TAB.PRT.SR PO ONE (11:00)
[2018-08-20 11:40] VITALS: BP 110/50
--- NOTE | 2018-08-20 13:36 | NUR ---
PATIENT DISCHARGE TO [facility] VIA AMBULANCE WITH 2EMT, PATIENT ALERT AND ORIENTED X2 -3, NO S/S OF ACUTE DISTRESS NOTED, NO C/O PAIN NOTED AT THIS TIME. DISCHARGE INSTRUCTION GIVEN TO PATIENT AND ABLE TO VERBALIZED UNDERSTANDING, PRESCRIPTION MEDS GIVEN AND TMS GIVEN. REPORT GIVEN TO MICHAEL BENNETT AT [facility]. IV AND ID BAND REMOVED. BELONGINGS ACCOUNTED FOR AND SIGNED, QUESTIONS AND CONCERNS ADDRESSED.
[2018-08-20] MEDS ORDERED: FUROSEMIDE 40 MG TABLET PO SCH (17:00)
== END 2018-08-20 13:35 | DRG 291 ==
LOC: ER 22:54 → TELE3 08-13 01:13 → MEDSURG3 08-14 14:46 → TELE3 08-16 19:30 → MEDSURG3 08-18 16:55
PROVIDERS: ADMIT Internal Medicine; ATTEND Nurse Practitioner Acute Care
DX: I11.0 Hypertensive heart disease with heart failure (principal); J15.9 Unspecified bacterial pneumonia; J96.21 Acute and chronic respiratory failure with hypoxia; J44.0 Chronic obstructive pulmonary disease with (acute) lower respiratory infection; J44.1 Chronic obstructive pulmonary disease with (acute) exacerbation; E22.2 Syndrome of inappropriate secretion of antidiuretic hormone; N39.0 Urinary tract infection, site not specified; J98.11 Atelectasis; Z68.42 Body mass index [BMI] 45.0-49.9, adult; E44.0 Moderate protein-calorie malnutrition; I50.33 Acute on chronic diastolic (congestive) heart failure; Z22.322 Carrier or suspected carrier of Methicillin resistant Staphylococcus aureus; E78.5 Hyperlipidemia, unspecified; E83.42 Hypomagnesemia; F03.90 Unspecified dementia, unspecified severity, without behavioral disturbance, psychotic disturbance, mood disturbance, and anxiety; K21.9 Gastro-esophageal reflux disease without esophagitis; Z86.73 Personal history of transient ischemic attack (TIA), and cerebral infarction without residual deficits; Z79.51 Long term (current) use of inhaled steroids; F20.9 Schizophrenia, unspecified; I25.2 Old myocardial infarction; Z79.84 Long term (current) use of oral hypoglycemic drugs; Z79.82 Long term (current) use of aspirin; Z79.899 Other long term (current) drug therapy; Z83.3 Family history of diabetes mellitus; I87.2 Venous insufficiency (chronic) (peripheral); E11.9 Type 2 diabetes mellitus without complications; E66.01 Morbid (severe) obesity due to excess calories; I25.10 Atherosclerotic heart disease of native coronary artery without angina pectoris; G47.33 Obstructive sleep apnea (adult) (pediatric); Z87.891 Personal history of nicotine dependence; I49.3 Ventricular premature depolarization; Z99.81 Dependence on supplemental oxygen; F32.9 Major depressive disorder, single episode, unspecified
CPT/HCPCS: 36415; 70030-TC; 71045; 83550; 83605; 83735; 84100; 84300; 84550; 85025; 85730; 87040; 87086; 93005; 94640; 94664; 97110; 97116; 97530; A4663; G0378; J0456; J0696; J1650; J1815; J1940; J2543; J2920; J3370; J3475; J3590; J7050; J7060

== ENCOUNTER 2018-12-13 16:42 | Inpatient (IN) | payer MEDICARE, OTHER ==
[~2018-12-13] VITALS: Ht 157.5 cm; Wt 96.8 kg
[~2018-12-13 16:42] MED LIST changes: +ACET325C3 PO; -ACET325T53 PO; +ALBU18HF2 IH; +ASPI-605 PO; -ASPI81TA31 PO; +CITA10TA9 PO; -CITA20TA16 PO; +DULA1.5P SQ; -FERR325T28 PO; +FLUT1BLS IH; +FURO-151 PO; +GUAI237L83 PO; +IPRA0.2S6 NEB; -IPRA3AMP23 IH; +ISOS30TA6 PO; +LEVO500P10 IV; -LOSA25TA3 PO; -MELO-105 PO; +METF-440 PO; +NITR0.4T48 SL; -OMEP20TA5 PO; +PANT40TA4 PO; +POLY17PO4 PO; -PRAV10TA40 PO; +PRAV20TA PO; -ROBITUSSIN DM PO
--- NOTE | 2018-12-13 17:01 | NUR ---
PT BIB PRIVATE AMBULANCE FROM [facility]. NO REPORT WAS RECEIVED FROM SENDING FACILITY. PER EMT'S REPORT, PT WAS BROUGHT TO THE ER FOR "BLEEDING HERNIA". UPON INSPECTION, THERE IS A LARGE PROTRUDENCE IN THE MEDIAL LOWER ABD THAT IS DRESSED W/ GAUZE. THE GAUZE IS NOT SOAKED IN BLOOD, BUT THERE IS MINIMAL AMOUNT OF BLEEDING FROM THE PROTRUDENCE. VSS. NAD AT THIS TIME.
--- NOTE | 2018-12-13 17:04 | NUR ---
CALLED [facility] AND SPOKE W/ DESIRAE AGRAWAL. PER DESIRAE'S REPORT, PT HAS A HX OF HERNIA IN THE MEDIAL LOWER ABD. DESIRAE STATES THE HERNIA BEGAN TO BLEED AROUND 1500 TODAY AND BLEEDING "WAS NOT CONTROLLABLE".
[2018-12-13] MEDS ORDERED: FURO-151 PO (17:15)
[2018-12-13] MEDS ORDERED: DOCU-141 PO (17:15)
[2018-12-13] MEDS ORDERED: ALBUTEROL HFA (17:15)
[2018-12-13] MEDS ORDERED: GLIP5TAB13 PO (17:15)
[2018-12-13] MEDS ORDERED: ALBU2.5V38 NEB (17:15)
[2018-12-13] MEDS ORDERED: GUAI-671 PO (17:15)
[2018-12-13 17:37] LABS: BASOPHILS # (AUTO) 0.1 K/uL (0.0-8.0); EOSINOPHILS # (AUTO) 0.1 K/uL (0.0-0.7); EOSINOPHILS % (AUTO) 2.2 % (0.0-7.0); HEMATOCRIT 40.7 % (31.2-41.9); HEMOGLOBIN 12.9 g/dL (10.9-14.3); LYMPHOCYTES # (AUTO) 1.3 K/uL (20.0-40.0); LYMPHOCYTES % (AUTO) 19.9 % (20.5-51.5); MEAN CORPUSCULAR HGB CONC 32 g/dL (32.3-35.6); MEAN CORPUSCULAR VOLUME 75.4 fL (75.5-95.3); MONOCYTES # (AUTO) 0.4 K/uL (2.0-10.0); MONOCYTES % (AUTO) 5.8 % (0.0-11.0); NEUTROPHILS # (AUTO) 4.7 K/uL (1.8-8.9); NEUTROPHILS % (AUTO) 71.1 % (38.5-71.5); PLATELET COUNT (AUTO) 240 K/uL (179-408); WHITE BLOOD COUNT (AUTO) 6.6 K/uL (3.8-11.8)
[2018-12-13 17:43] LABS: CARBON DIOXIDE 32 mmol/L (21-32); CHLORIDE 100 mmol/L (98-107); CREATININE 1.1 mg/dL (0.6-1.3); GLUCOSE 76 mg/dL (74-106); POTASSIUM 4.5 mmol/L (3.5-5.1); UREA NITROGEN, BLOOD 15 mg/dL (7-18)
[2018-12-13 17:57] LABS: ALANINE AMINOTRANSFERASE 21 U/L (14-59); ALKALINE PHOSPHATASE 78 U/L (50-136); ASPARTATE AMINOTRANSFERASE 13 U/L (15-37); BILIRUBIN,DIRECT 0.1 mg/dL (0.0-0.2); BILIRUBIN,TOTAL 0.3 mg/dL (0.2-1.0); TOTAL PROTEIN, SERUM 6.9 g/dL (6.4-8.2)
--- NOTE | 2018-12-13 18:42 | NUR ---
UPON REASSESSMENT, BLEEDING FROM ABD HERNIA ABRASION HAS STOPPED.
--- NOTE | 2018-12-13 19:11 | NUR ---
SHIFT REPORT GIVEN TO DARIAN RODRIGUEZ.
--- NOTE | 2018-12-13 19:18 | NUR ---
Received report from Alrey Mascorro RN.
--- NOTE | 2018-12-13 20:02 | NUR ---
report given to MICHAEL Garcia for telemetry department.
--- NOTE | 2018-12-13 20:27 | NUR ---
patient trasnferred to tele via kailee with Royal MERRILL.
[2018-12-13] MEDS ORDERED: ALBUTEROL SULFATE 2.5 MG/3 ML NEBU NEB PRN (20:30)
[2018-12-13] MEDS ORDERED: IPRATROPIUM BROMIDE 0.5 MG/2.5 ML NEBU NEB PRN (20:30)
[2018-12-13] MEDS ORDERED: NITROGLYCERIN 0.4 MG/TAB BOTTLE SL PRN (20:30)
[2018-12-13] MEDS ORDERED: ACETAMINOPHEN 325 MG TABLET PO PRN (20:30)
--- NOTE | 2018-12-13 20:30 | NUR ---
RECEIVED PT IN ER VIA RPRISCILA .PT ON TELEMETRY. UNDER DR. MURRY DX:SOB. PT STABLE AND IN NO ACUTE DISTRESS. IV INTACT. ADMISSION PROCESS AND CARE PLAN INITIATED. SNF ASSESSMENT DONE. SAFETY AND COMFORT PROVIDED. WILL CONTINUE TO MONITOR.
[2018-12-13] MEDS ORDERED: PRAVASTATIN SODIUM 10 MG PO SCH (21:00)
[2018-12-13 21:24] VITALS: BP 108/36
[2018-12-13] MEDS: MONTELUKAST SODIUM 10 MG TABLET PO SCH (23:00)
[2018-12-14 00:31] VITALS: BP 120/60
[2018-12-14 04:10] VITALS: BP 108/42
--- NOTE | 2018-12-14 06:21 | NUR ---
PT SLEPT THROUGHOUT THE SHIFT. PT SHOWS NO SIGNS OF ACUTE DISTRESS. PRESCRIBED MEDICATION GIVEN AND PT TOLERATED IT WELL. SAFETY AND COMFORT PROVIDED. ALL NEEDS ARE MET. WILL ENDORSE ACCORDINGLY TO INCOMING NURSE FOR CONTINUITY OF CARE.
[2018-12-14] MEDS: PANTOPRAZOLE SODIUM 40 MG TABLET.DR PO SCH (06:31)
[2018-12-14 06:42] LABS: BASOPHILS % (AUTO) 0.7 % (0.0-2.0); EOSINOPHILS # (AUTO) 0.1 K/uL (0.0-0.7); EOSINOPHILS % (AUTO) 2.8 % (0.0-7.0); HEMATOCRIT 40.5 % (31.2-41.9); HEMOGLOBIN 12.9 g/dL (10.9-14.3); LYMPHOCYTES # (AUTO) 1.3 K/uL (20.0-40.0); LYMPHOCYTES % (AUTO) 23.9 % (20.5-51.5); MEAN CORPUSCULAR HEMOGLOBIN 24.2 uug (24.7-32.8); MEAN CORPUSCULAR HGB CONC 32 g/dL (32.3-35.6); MEAN CORPUSCULAR VOLUME 75.8 fL (75.5-95.3); MONOCYTES # (AUTO) 0.3 K/uL (2.0-10.0); MONOCYTES % (AUTO) 5.2 % (0.0-11.0); NEUTROPHILS # (AUTO) 3.5 K/uL (1.8-8.9); NEUTROPHILS % (AUTO) 67.4 % (38.5-71.5); PLATELET COUNT (AUTO) 221 K/uL (179-408); RED BLOOD CELL COUNT(AUTO) 5.34 MIL/uL (3.63-4.92); WHITE BLOOD COUNT (AUTO) 5.2 K/uL (3.8-11.8)
--- NOTE | 2018-12-14 07:20 | NUR ---
RECEIVED PATIENT IN BED RESTING IN BED WITH NO S/S OF ACUTE DISTRESS NOTED. SAFETY AND COMFORT PROVIDED AT ALL TIMES. CALL LIGHT WITHIN REACHED. WILL CONTINUE TO MONITOR.
[2018-12-14 08:17] LABS: ALANINE AMINOTRANSFERASE 14 U/L (14-59); ALKALINE PHOSPHATASE 75 U/L (50-136); ASPARTATE AMINOTRANSFERASE 12 U/L (15-37); BILIRUBIN,TOTAL 0.4 mg/dL (0.2-1.0); CARBON DIOXIDE 29 mmol/L (21-32); CHLORIDE 103 mmol/L (98-107); CREATININE 0.9 mg/dL (0.6-1.3); GLUCOSE 89 mg/dL (74-106); PHOSPHOROUS 4.1 mg/dL (2.5-4.9); POTASSIUM 4.4 mmol/L (3.5-5.1); TOTAL PROTEIN, SERUM 6.4 g/dL (6.4-8.2); UREA NITROGEN, BLOOD 13 mg/dL (7-18)
[2018-12-14 08:25] LABS: *BILIRUBIN,URIN NEGATIVE (NEGATIVE); *CLARITY,URINE SLIGHTLY CLOUDY (CLEAR); *COLOR,URINE YELLOW (YELLOW); *KETONES,URINE NEGATIVE (NEGATIVE); *UROBILINOGEN,URINE 0.2 E.U./dl (NORMAL); LEUKOCYTE ESTERASE ,URINE 3+ (NEGATIVE); NITRITE, URINE POSITIVE (NEGATIVE); UGLUCOSE NEGATIVE (NEGATIVE)
[2018-12-14] MEDS: CITALOPRAM 10 MG TABLET PO SCH (08:26)
[2018-12-14] MEDS: FUROSEMIDE 40 MG TABLET PO SCH ×2 (08:26→16:53)
[2018-12-14] MEDS: DOCUSATE SODIUM 100 MG CAPSULE PO SCH ×2 (08:26→16:53)
[2018-12-14] MEDS: glipiZIDE 5 MG TABLET PO SCH ×2 (08:26→16:53)
[2018-12-14 08:30] LABS: *BLOOD, URINE TRACE (NEGATIVE)
[2018-12-14] MEDS: ISOSORBIDE MONONITRATE 30 MG TAB.SR.24H PO SCH (08:31)
[2018-12-14] MEDS ORDERED: OXYBUTYNIN CHLORIDE 5 MG TABLET PO SCH (09:00)
[2018-12-14] MEDS: FLUTICASONE/VILANTEROL 1 EACH BLST.W.DEV IH SCH (09:03)
[2018-12-14 09:32] LABS: BACTERIA,URINE MANY /HPF (NONE SEEN); RBC,URINE 0-3 /HPF (0-3); WBC,URINE TNTC /HPF (0-3)
[2018-12-14 09:33] LABS: SQUAMOUS EPITHELIAL CELL,UR FEW /HPF (NONE SEEN)
[2018-12-14 11:10] VITALS: BP 90/32
[2018-12-14] MEDS: CEFTRIAXONE 1 G in IV DEXTROSE 5% 50 ML IV SCH (12:31)
[2018-12-14 13:03] LABS: IRON, SERUM 49 ug/dL (50-175)
[2018-12-14 15:20] VITALS: BP 91/34
--- NOTE | 2018-12-14 15:45 | NUR ---
RECEIVED REPORT FROM LAB PATIENT IS POSITIVE FOR MRSA IN THE NARES. PUT PATIENT IN CONTACT ISOLATION, NOTIFIED .
--- NOTE | 2018-12-14 16:15 | NUR ---
RECEIVED ORDER OF BACTROBAN FROM . NOTED AND CARRIED OUT.
--- NOTE | 2018-12-14 18:38 | NUR ---
PATIENT IN CONTACT ISOLATION FOR MRSA IN THE NARES. PATIENT IN BED RESTING WITH NO S/S OF ACUTE DISTRESS NOTED. NO C/O PAIN AT THIS TIME. SAFETY AND COMFORT PROVIDED AT ALL TIMES. CALL LIGHT WITHIN REACHED. WILL CONTINUE TO MONITOR.
[2018-12-14 20:07] VITALS: BP 98/46
[2018-12-14] MEDS: MONTELUKAST SODIUM 10 MG TABLET PO SCH (20:47)
[2018-12-14] MEDS: MUPIROCIN 2% OINT 22 GM TUBE NS SCH (20:47)
[2018-12-14] MEDS ORDERED: ATORVASTATIN 10 MG TABLET PO SCH (21:00)
--- NOTE | 2018-12-14 23:16 | NUR ---
RECEIVED PT AWAKE, ALERT AND ORIENTEDX4. PT SHOWS NO SIGNS OF ACUTE DISTRESS. PT IV INTACT. SAFETY AND COMFORT PROVIDED. PT ON 2L NASAL CANNULA. SAFETY AND COMFORT PROVIDED. WILL CONTINUE TO MONITOR.
[2018-12-15 00:50] VITALS: BP 100/57
[2018-12-15 04:00] VITALS: BP 131/57
--- NOTE | 2018-12-15 06:23 | NUR ---
PT SLEPT INTERMITTENTLY.PT SHOWS NO SIGNS OF ACUTE DISTRESS.IV INTACT. PRESCRIBED MEDICATION GIVEN AND PT TOLERATED IT WELL. SAFETY AND COMFORT PROVIDED. ALL NEEDS ARE MET. WILL ENDORSE ACCORDINGLY TO INCOMING NURSE FOR CONTINUITY OF CARE.
[2018-12-15] MEDS: PANTOPRAZOLE SODIUM 40 MG TABLET.DR PO SCH (06:30)
[2018-12-15] MEDS: glipiZIDE 5 MG TABLET PO SCH ×2 (06:31→18:03)
[2018-12-15 07:30] LABS: BASOPHILS % (AUTO) 0.4 % (0.0-2.0); EOSINOPHILS # (AUTO) 0.1 K/uL (0.0-0.7); EOSINOPHILS % (AUTO) 2.4 % (0.0-7.0); HEMATOCRIT 41.6 % (31.2-41.9); HEMOGLOBIN 13.5 g/dL (10.9-14.3); LYMPHOCYTES # (AUTO) 1.1 K/uL (20.0-40.0); LYMPHOCYTES % (AUTO) 17.4 % (20.5-51.5); MEAN CORPUSCULAR HEMOGLOBIN 24.6 uug (24.7-32.8); MEAN CORPUSCULAR HGB CONC 33 g/dL (32.3-35.6); MEAN CORPUSCULAR VOLUME 75.8 fL (75.5-95.3); MONOCYTES # (AUTO) 0.3 K/uL (2.0-10.0); NEUTROPHILS # (AUTO) 4.7 K/uL (1.8-8.9); NEUTROPHILS % (AUTO) 74.8 % (38.5-71.5); PLATELET COUNT (AUTO) 221 K/uL (179-408); RED BLOOD CELL COUNT(AUTO) 5.48 MIL/uL (3.63-4.92); WHITE BLOOD COUNT (AUTO) 6.3 K/uL (3.8-11.8)
[2018-12-15 07:35] LABS: CARBON DIOXIDE 31 mmol/L (21-32); CHLORIDE 102 mmol/L (98-107); GLUCOSE 81 mg/dL (74-106); MAGNESIUM 2.1 mg/dL (1.8-2.4); PHOSPHOROUS 4.1 mg/dL (2.5-4.9); POTASSIUM 4.4 mmol/L (3.5-5.1); UREA NITROGEN, BLOOD 14 mg/dL (7-18)
[2018-12-15] MEDS: ISOSORBIDE MONONITRATE 30 MG TAB.SR.24H PO SCH (09:00)
[2018-12-15] MEDS: FLUTICASONE/VILANTEROL 1 EACH BLST.W.DEV IH SCH (09:03)
[2018-12-15] MEDS: MUPIROCIN 2% OINT 22 GM TUBE NS SCH (09:03)
[2018-12-15] MEDS: CITALOPRAM 10 MG TABLET PO SCH (09:04)
[2018-12-15] MEDS: FUROSEMIDE 40 MG TABLET PO SCH ×2 (09:05→18:04)
[2018-12-15] MEDS: DOCUSATE SODIUM 100 MG CAPSULE PO SCH ×2 (09:15→18:04)
[2018-12-15] MEDS: CEFTRIAXONE 1 G in IV DEXTROSE 5% 50 ML IV SCH (11:40)
[2018-12-15 11:44] VITALS: BP 111/55
--- NOTE | 2018-12-15 13:53 | NUR ---
WOUND CARE CONSULT: PT PRESENTS WITH PANNUS WOUND, PRESENT ON ADMISSION. RECOMMENDATIONS MADE FOR WOUND CARE AND SKIN PROTECTION. DISCUSSED WITH NURSING STAFF AND TRAVIS FINE MD. PT REFUSED ASSESSMENT OF BACK AND SACRAL/BUTTOCKS AREA. WILL SEE PRN. LARIOS IN AGREEMENT WITH PLAN OF CARE. Addendum: 12/15/18 at 1355 by VIVIANA XIONG RN Amended: Links added.
[2018-12-15] MEDS ORDERED: FERR325T28 PO (15:41)
[2018-12-15 16:00] VITALS: BP 134/53
--- NOTE | 2018-12-15 18:50 | NUR ---
Patient is d/c, VS WNL, no SOB or any distress Wound care is done and binder in place, Patient is unable to signed all the d/c papers due to language and she gets confused at times, so papers were signed with two RN IV removed Report given to Rand Tubbs RN Left by ambulance
== END 2018-12-15 18:45 | DRG 393 ==
LOC: ER 16:44 → TELE3 19:58
PROVIDERS: ADMIT Internal Medicine; ATTEND Internal Medicine
DX: K43.9 Ventral hernia without obstruction or gangrene (principal); I50.33 Acute on chronic diastolic (congestive) heart failure; E44.0 Moderate protein-calorie malnutrition; D68.59 Other primary thrombophilia; S30.811A Abrasion of abdominal wall, initial encounter; X58.XXXA Exposure to other specified factors, initial encounter; Y92.122 Bedroom in nursing home as the place of occurrence of the external cause; N93.9 Abnormal uterine and vaginal bleeding, unspecified; D64.9 Anemia, unspecified; G47.33 Obstructive sleep apnea (adult) (pediatric); I11.0 Hypertensive heart disease with heart failure; E66.01 Morbid (severe) obesity due to excess calories; F20.9 Schizophrenia, unspecified; F41.9 Anxiety disorder, unspecified; E78.5 Hyperlipidemia, unspecified; K44.9 Diaphragmatic hernia without obstruction or gangrene; E05.90 Thyrotoxicosis, unspecified without thyrotoxic crisis or storm; F32.9 Major depressive disorder, single episode, unspecified; Z74.09 Other reduced mobility; M19.90 Unspecified osteoarthritis, unspecified site; K21.9 Gastro-esophageal reflux disease without esophagitis; I87.2 Venous insufficiency (chronic) (peripheral); M81.0 Age-related osteoporosis without current pathological fracture; J44.9 Chronic obstructive pulmonary disease, unspecified; E11.9 Type 2 diabetes mellitus without complications; Z79.84 Long term (current) use of oral hypoglycemic drugs; Z68.38 Body mass index [BMI] 38.0-38.9, adult; M43.16 Spondylolisthesis, lumbar region; Z79.51 Long term (current) use of inhaled steroids; Z79.899 Other long term (current) drug therapy; Z86.73 Personal history of transient ischemic attack (TIA), and cerebral infarction without residual deficits; Z99.3 Dependence on wheelchair; I45.10 Unspecified right bundle-branch block; Z22.322 Carrier or suspected carrier of Methicillin resistant Staphylococcus aureus; R60.0 Localized edema
CPT/HCPCS: 36415; 70030-TC; 71045; 83550; 83605; 83735; 84100; 84443; 85025; 85730; 87077; 87086; 93005; A4663; G0378; J0696; J3490; J7040; J7060

== ENCOUNTER 2019-02-22 14:55 | Inpatient (IN) | payer MEDICARE, OTHER ==
[~2019-02-22] VITALS: Ht 160 cm; Wt 102.1 kg
[~2019-02-22 14:55] MED LIST changes: +ALBU2.5V38 NEB; +ALBUTEROL HFA; +DOCU-141 PO; -DOCU100C36 PO; -DULA1.5P SQ; +FERR325T28 PO; +GLIP5TAB13 PO; +GUAI-671 PO; -GUAI237L83 PO; -LEVO500P10 IV; -METF-440 PO; -MULT1TAB73 PO; -POLY17PO4 PO
[2019-02-22] MEDS ORDERED: IV NORMAL SALINE 1000 ML BAG IV ONE (15:15)
[2019-02-22] MEDS ORDERED: ALBUTEROL SULFATE 2.5 MG/3 ML NEBU NEB ONE (15:30)
[2019-02-22] MEDS ORDERED: IPRATROPIUM BROMIDE 0.5 MG/2.5 ML NEBU NEB ONE (15:30)
[2019-02-22 15:34] LABS: BASOPHILS # (AUTO) 0.1 K/uL (0.0-8.0); BASOPHILS % (AUTO) 0.3 % (0.0-2.0); EOSINOPHILS % (AUTO) 0.2 % (0.0-7.0); HEMATOCRIT 39.9 % (31.2-41.9); HEMOGLOBIN 12.5 g/dL (10.9-14.3); LYMPHOCYTES % (AUTO) 5.9 % (20.5-51.5); MEAN CORPUSCULAR HEMOGLOBIN 23.2 uug (24.7-32.8); MEAN CORPUSCULAR HGB CONC 31 g/dL (32.3-35.6); MEAN CORPUSCULAR VOLUME 74.2 fL (75.5-95.3); MONOCYTES # (AUTO) 1.5 K/uL (2.0-10.0); NEUTROPHILS # (AUTO) 14.4 K/uL (1.8-8.9); NEUTROPHILS % (AUTO) 84.6 % (38.5-71.5); PLATELET COUNT (AUTO) 285 K/uL (179-408); RED BLOOD CELL COUNT(AUTO) 5.38 MIL/uL (3.63-4.92)
[2019-02-22 15:36] LABS: CREATININE 1.3 mg/dL (0.6-1.3); POTASSIUM 3.9 mmol/L (3.5-5.1)
[2019-02-22] MEDS ORDERED: IPRATROPIUM BROMIDE 0.5 MG/2.5 ML NEBU ONE (15:36)
[2019-02-22] MEDS ORDERED: ALBUTEROL SULFATE 2.5 MG/3 ML NEBU ONE (15:36)
[2019-02-22 15:53] LABS: BILIRUBIN,DIRECT 0.7 mg/dL (0.0-0.2); BILIRUBIN,TOTAL 1.2 mg/dL (0.2-1.0); TOTAL PROTEIN, SERUM 7.7 g/dL (6.4-8.2)
[2019-02-22] MEDS ORDERED: VANCOMYCIN IV 1,000 MG in IV DEXTROSE 5% 250 ML IV ONE (16:00)
[2019-02-22] MEDS ORDERED: LEVOFLOXACIN 750 MG/D5W 150 ML PIGGYBACK IV ONE (16:00)
[2019-02-22] MEDS ORDERED: LEVOFLOXACIN 750MG/D5W 150 ML IV ONE (16:00)
[2019-02-22] MEDS ORDERED: VANCOMYCIN HCL 500 MG VIAL ONE (16:16)
[2019-02-22 16:17] LABS: *BILIRUBIN,URIN 1+ (NEGATIVE); *CLARITY,URINE CLOUDY (CLEAR); *COLOR,URINE DARK YELLOW (YELLOW); *KETONES,URINE NEGATIVE (NEGATIVE); LEUKOCYTE ESTERASE ,URINE 2+ (NEGATIVE); NITRITE, URINE NEGATIVE (NEGATIVE); PH,URINE 5.5 (5.0-8.0); UGLUCOSE NEGATIVE (NEGATIVE)
[2019-02-22 16:19] LABS: *BLOOD, URINE TRACE (NEGATIVE)
[2019-02-22] MEDS ORDERED: VANCOMYCIN IV 200 ML ONE (16:21)
[2019-02-22 16:24] LABS: RBC,URINE 0-3 /HPF (0-3)
[2019-02-22 16:25] LABS: BACTERIA,URINE MANY /HPF (NONE SEEN); SQUAMOUS EPITHELIAL CELL,UR FEW /HPF (NONE SEEN); WBC,URINE 50-80 /HPF (0-3)
[2019-02-22 16:33] LABS: NEUTROPHILS % (MANUAL) 89 % (42-75)
[2019-02-22 16:34] LABS: EOSINOPHILS % (MANUAL) 1 % (0-8); LYMPHOCYTES % (MANUAL) 4 % (20-40); MONOCYTES % (MANUAL) 6 % (2-10)
[2019-02-22] MEDS ORDERED: diphenhydrAMINE 50 MG/1 ML VIAL IV ONE (16:45)
[2019-02-22] MEDS ORDERED: diphenhydrAMINE 50 MG/1 ML VIAL ONE (16:48)
--- NOTE | 2019-02-22 16:56 | NUR ---
Pt was seen by .
--- NOTE | 2019-02-22 16:58 | NUR ---
Pt started on Levaquin.Noted with redness on Left arm. was notified .Levaquin was discontinue.Pt was medicated with Benadryl 50 mg IV.
[2019-02-22] MEDS ORDERED: NITROGLYCERIN 0.4 MG/TAB BOTTLE SL PRN (17:15)
[2019-02-22] MEDS ORDERED: ONDANSETRON 4 MG/2 ML VIAL IV PRN (17:15)
[2019-02-22] MEDS ORDERED: Medication Not On Formulary EA (Acetaminophen 650 MG) PO PRN (17:15)
--- NOTE | 2019-02-22 17:30 | NUR ---
RECEIVED PATIENT FROM ER VIA RIKKI TELLO ON THE RIGHT HAND, NO C/O PAIN AT THIS TIME, BELONGINGS ACCOUNTED FOR AND SIGNED. WILL CONTINUE TO MONITOR.
[2019-02-22] MEDS ORDERED: VANCOMYCIN IV 500 MG in IV DEXTROSE 5% 100 ML IV SCH (18:00)
--- NOTE | 2019-02-22 18:00 | NUR ---
PHARMACY CLINICAL NOTES (VANCOMYCIN DOSING) S: 73 YO female with DX of COPD exacerbation and MD julianna ordered Vancomcyin and Zosyn O: BUN/SCR 18/1.3, WBC 17, TEMP 98.8, DOSING WT 230 LBS A/P: PT received 1 dose of Vancomycin 1 gm in ER ~ 1600. Will order another 500 mg for a total of 1500 mg, and will continue with 1500 mg q25h next dose due 02/23 @ 1800. Estimated trough is 17. Will order level prior to 4th dose. will continue to monitor.
--- NOTE | 2019-02-22 19:35 | NUR ---
Received patient asleep in bed, not in acute distress. Patient arousable. Kept comfortable in bed. Noise and lights subdued. Will continue to monitor.
[2019-02-22 20:35] VITALS: BP 90/39
[2019-02-22] MEDS: MONTELUKAST SODIUM 10 MG TABLET PO SCH (20:38)
[2019-02-22] MEDS: ATORVASTATIN 10 MG TABLET PO SCH (20:38)
[2019-02-22] MEDS ORDERED: PRAVASTATIN SODIUM 10 MG PO SCH (21:00)
[2019-02-22] MEDS: ALBUTEROL SULFATE 2.5 MG/3 ML NEBU NEB PRN (21:05)
[2019-02-22] MEDS: IPRATROPIUM BROMIDE 0.5 MG/2.5 ML NEBU NEB PRN (21:05)
[2019-02-22] MEDS: PIPERACILLIN SODIUM/TAZOBACTAM 3.375 G in IV DEXTROSE 5% 50 ML IV SCH (21:20)
[2019-02-23] MEDS: ACETAMINOPHEN 325 MG TABLET PO PRN (00:56)
[2019-02-23 01:09] VITALS: BP 111/39
[2019-02-23 05:18] VITALS: BP 110/50
[2019-02-23] MEDS: PIPERACILLIN SODIUM/TAZOBACTAM 3.375 G in IV DEXTROSE 5% 50 ML IV SCH ×3 (05:35→21:55)
[2019-02-23] MEDS: PANTOPRAZOLE SODIUM 40 MG TABLET.DR PO SCH ×2 (06:12→09:00)
--- NOTE | 2019-02-23 06:28 | NUR ---
Noted patient with multiple attempts to remove IV access last night, patient also repetitively removing nasal cannula. Attended all needs. Ensured safety and comfort.
[2019-02-23 06:41] LABS: BASOPHILS % (AUTO) 0.3 % (0.0-2.0); EOSINOPHILS # (AUTO) 0.1 K/uL (0.0-0.7); EOSINOPHILS % (AUTO) 0.4 % (0.0-7.0); HEMATOCRIT 41.1 % (31.2-41.9); HEMOGLOBIN 12.9 g/dL (10.9-14.3); LYMPHOCYTES # (AUTO) 0.8 K/uL (20.0-40.0); LYMPHOCYTES % (AUTO) 5.7 % (20.5-51.5); MEAN CORPUSCULAR HEMOGLOBIN 23.3 uug (24.7-32.8); MEAN CORPUSCULAR HGB CONC 31 g/dL (32.3-35.6); MEAN CORPUSCULAR VOLUME 74.4 fL (75.5-95.3); MONOCYTES # (AUTO) 0.7 K/uL (2.0-10.0); MONOCYTES % (AUTO) 4.9 % (0.0-11.0); NEUTROPHILS # (AUTO) 12.1 K/uL (1.8-8.9); NEUTROPHILS % (AUTO) 88.7 % (38.5-71.5); PLATELET COUNT (AUTO) 252 K/uL (179-408); RED BLOOD CELL COUNT(AUTO) 5.53 MIL/uL (3.63-4.92); WHITE BLOOD COUNT (AUTO) 13.6 K/uL (3.8-11.8)
[2019-02-23 06:56] LABS: BILIRUBIN,TOTAL 1.1 mg/dL (0.2-1.0); CREATININE 1.2 mg/dL (0.6-1.3); PHOSPHOROUS 4.1 mg/dL (2.5-4.9); POTASSIUM 3.8 mmol/L (3.5-5.1); TOTAL PROTEIN, SERUM 7.5 g/dL (6.4-8.2)
[2019-02-23 09:39] LABS: BAND % (MANUAL) 3 % (0-10); LYMPHOCYTES % (MANUAL) 3 % (20-40); MONOCYTES % (MANUAL) 3 % (2-10); NEUTROPHILS % (MANUAL) 91 % (42-75)
[2019-02-23] MEDS: FUROSEMIDE 20 MG/2 ML VIAL IV SCH (10:43)
[2019-02-23] MEDS: ASPIRIN EC 81 MG TABLET.DR PO SCH (10:44)
[2019-02-23] MEDS: DOCUSATE SODIUM 100 MG CAPSULE PO SCH ×2 (10:44→17:59)
[2019-02-23] MEDS: OXYBUTYNIN CHLORIDE 5 MG TABLET PO SCH (10:44)
[2019-02-23] MEDS: CITALOPRAM 10 MG TABLET PO SCH (10:44)
[2019-02-23] MEDS: ISOSORBIDE MONONITRATE 30 MG TAB.SR.24H PO SCH (10:45)
[2019-02-23 11:00] VITALS: BP 110/43
--- NOTE | 2019-02-23 11:15 | NUR ---
PHARMACY CLINICAL NOTES (VANCOMYCIN DOSING) S: To continue vanco dosing for this 73 YO female with DX of COPD exacerbation and pna O: BUN/SCR 17/1.2, WBC 13.3, TEMP 98.4 wt 1103 kg ht 160 cm A/P:Will continue same dose of vanco 1500 mg IVPB q25h for today. 2nd dose due 02/23 @ 1800. Estimated trough is 17. Will order level prior to 4th dose (not yet ordered). will continue to monitor.
[2019-02-23 15:19] VITALS: BP 101/43
[2019-02-23] MEDS ORDERED: VANCOMYCIN IV 1,500 MG in IV DEXTROSE 5% 500 ML IV SCH (18:00)
[2019-02-23 20:00] VITALS: BP 110/49
[2019-02-23] MEDS: CULTURELLE CAPSULE PO SCH (20:57)
[2019-02-23] MEDS: MONTELUKAST SODIUM 10 MG TABLET PO SCH (20:58)
[2019-02-23] MEDS: ATORVASTATIN 10 MG TABLET PO SCH (20:58)
[2019-02-24 00:16] VITALS: BP 115/46
--- NOTE | 2019-02-24 03:00 | NUR ---
Received report from outgoing RN regarding patient's case. Received pt sitting up in chair, eating. No signs of acute cardio-respiratory distress. Sinus tachy on tele at 92 during rest and goes up to 120 during exertion. O2 2LPM kept in place. Will continue to monitor.
--- NOTE | 2019-02-24 03:28 | NUR ---
PATIENT RESTED IN BETWEEN CARE; SAT ON THE CHAIR MOST OF THE TIME REFUSING TO GO BACK TO BED; ASSISTED TO BEDSIDE COMMODE; REPORT GIVEN TO NURSE KO FOR CONTINUITY OF CARE.
[2019-02-24 04:00] VITALS: BP 126/72
[2019-02-24] MEDS: PIPERACILLIN SODIUM/TAZOBACTAM 3.375 G in IV DEXTROSE 5% 50 ML IV SCH ×3 (05:01→21:19)
[2019-02-24 05:50] LABS: *OCCULT BLOOD STOOL NEGATIVE (NEGATIVE)
--- NOTE | 2019-02-24 06:37 | NUR ---
Patient noted with 3 big bowel movements. Well formed stool. Stool sample sent to lab for stool OB ordered. Assisted to bedside commode. Good perineal care provided. No noted skin breakdown. Continued to request to sit up in chair, pillow-placed behind back. Able to sleep and rest intermittently at the chair. Refuses to go back to bed. Only allowed weight to be measured and went back to chair. Needs max /1-2 person assist during transfers. Fall precautions maintained.
[2019-02-24] MEDS: PANTOPRAZOLE SODIUM 40 MG TABLET.DR PO SCH (09:00)
[2019-02-24] MEDS: ALBUTEROL SULFATE 2.5 MG/3 ML NEBU NEB PRN (09:40)
[2019-02-24] MEDS: IPRATROPIUM BROMIDE 0.5 MG/2.5 ML NEBU NEB PRN (09:40)
[2019-02-24 10:03] LABS: BASOPHILS # (AUTO) 0.1 K/uL (0.0-8.0); BASOPHILS % (AUTO) 0.4 % (0.0-2.0); EOSINOPHILS # (AUTO) 0.1 K/uL (0.0-0.7); HEMATOCRIT 39.5 % (31.2-41.9); HEMOGLOBIN 12.5 g/dL (10.9-14.3); LYMPHOCYTES # (AUTO) 0.7 K/uL (20.0-40.0); LYMPHOCYTES % (AUTO) 5.1 % (20.5-51.5); MEAN CORPUSCULAR HEMOGLOBIN 23.4 uug (24.7-32.8); MEAN CORPUSCULAR HGB CONC 32 g/dL (32.3-35.6); MEAN CORPUSCULAR VOLUME 74.1 fL (75.5-95.3); MONOCYTES # (AUTO) 0.6 K/uL (2.0-10.0); MONOCYTES % (AUTO) 4.8 % (0.0-11.0); NEUTROPHILS # (AUTO) 11.3 K/uL (1.8-8.9); NEUTROPHILS % (AUTO) 88.7 % (38.5-71.5); PLATELET COUNT (AUTO) 299 K/uL (179-408); RED BLOOD CELL COUNT(AUTO) 5.32 MIL/uL (3.63-4.92); WHITE BLOOD COUNT (AUTO) 12.8 K/uL (3.8-11.8)
[2019-02-24 10:10] LABS: CARBON DIOXIDE 32 mmol/L (21-32); CHLORIDE 92 mmol/L (98-107); GLUCOSE 151 mg/dL (74-106); MAGNESIUM 2.1 mg/dL (1.8-2.4); PHOSPHOROUS 3.3 mg/dL (2.5-4.9); UREA NITROGEN, BLOOD 17 mg/dL (7-18)
--- NOTE | 2019-02-24 10:37 | NUR ---
PHARMACY CLINICAL NOTES (VANCOMYCIN DOSING) S: To continue vanco dosing for this 73 YO female with DX of COPD exacerbation and pna O: BUN/SCR 17/1.0, WBC 12.8, TEMP 98.3 wt 1103 kg ht 160 cm A/P:Since srcr has improved, will change dose of vanco to 1500 mg IVPB q23h for predicted vanco trough level of 15.8 mcg/ml at steady state. 2nd dose today @ 1700. Will order level prior to 4th dose (not yet ordered). will continue to monitor.
[2019-02-24 11:03] LABS: EOSINOPHILS % (MANUAL) 2 % (0-8); LYMPHOCYTES % (MANUAL) 4 % (20-40); MONOCYTES % (MANUAL) 6 % (2-10); NEUTROPHILS % (MANUAL) 88 % (42-75)
[2019-02-24] MEDS: FUROSEMIDE 20 MG/2 ML VIAL IV SCH (11:04)
[2019-02-24] MEDS: MUPIROCIN 2% OINT 22 GM TUBE NS SCH ×2 (11:04→20:16)
[2019-02-24] MEDS: ASPIRIN EC 81 MG TABLET.DR PO SCH (11:05)
[2019-02-24] MEDS: CULTURELLE CAPSULE PO SCH ×2 (11:05→20:17)
[2019-02-24] MEDS: CITALOPRAM 10 MG TABLET PO SCH (11:05)
[2019-02-24] MEDS: DOCUSATE SODIUM 100 MG CAPSULE PO SCH ×2 (11:05→17:53)
[2019-02-24] MEDS: FERROUS SULFATE 325 MG TABEC PO SCH (11:05)
[2019-02-24 11:06] VITALS: BP 107/44
[2019-02-24] MEDS: ISOSORBIDE MONONITRATE 30 MG TAB.SR.24H PO SCH (11:06)
[2019-02-24 15:39] VITALS: BP 115/37
[2019-02-24] MEDS ORDERED: VANCOMYCIN IV 1,500 MG in IV DEXTROSE 5% 500 ML IV SCH (17:00)
[2019-02-24 20:07] VITALS: BP 130/69
[2019-02-24] MEDS: MONTELUKAST SODIUM 10 MG TABLET PO SCH (20:16)
[2019-02-24] MEDS: ATORVASTATIN 10 MG TABLET PO SCH (20:17)
[2019-02-25 00:20] VITALS: BP 124/55
[2019-02-25 05:04] VITALS: BP 153/49
[2019-02-25] MEDS: PIPERACILLIN SODIUM/TAZOBACTAM 3.375 G in IV DEXTROSE 5% 50 ML IV SCH ×2 (05:08→14:25)
[2019-02-25 06:37] LABS: BASOPHILS % (AUTO) 0.4 % (0.0-2.0); EOSINOPHILS # (AUTO) 0.2 K/uL (0.0-0.7); HEMATOCRIT 39.1 % (31.2-41.9); HEMOGLOBIN 12.6 g/dL (10.9-14.3); LYMPHOCYTES # (AUTO) 0.6 K/uL (20.0-40.0); LYMPHOCYTES % (AUTO) 5.6 % (20.5-51.5); MEAN CORPUSCULAR HEMOGLOBIN 23.3 uug (24.7-32.8); MEAN CORPUSCULAR HGB CONC 32 g/dL (32.3-35.6); MEAN CORPUSCULAR VOLUME 72.2 fL (75.5-95.3); MONOCYTES # (AUTO) 0.7 K/uL (2.0-10.0); MONOCYTES % (AUTO) 6.6 % (0.0-11.0); NEUTROPHILS # (AUTO) 9.3 K/uL (1.8-8.9); NEUTROPHILS % (AUTO) 85.4 % (38.5-71.5); PLATELET COUNT (AUTO) 360 K/uL (179-408); RED BLOOD CELL COUNT(AUTO) 5.42 MIL/uL (3.63-4.92); WHITE BLOOD COUNT (AUTO) 10.9 K/uL (3.8-11.8)
[2019-02-25 06:54] LABS: CARBON DIOXIDE 32 mmol/L (21-32); CHLORIDE 89 mmol/L (98-107); CREATININE 0.9 mg/dL (0.6-1.3); GLUCOSE 142 mg/dL (74-106); PHOSPHOROUS 3.3 mg/dL (2.5-4.9); POTASSIUM 4.2 mmol/L (3.5-5.1); UREA NITROGEN, BLOOD 15 mg/dL (7-18)
--- NOTE | 2019-02-25 07:15 | NUR ---
RECEIVED PATIENT AOX3. DENIES CHEST PAIN. HAS SOB AT REST. TELE MONITOR SINUS RYTHM IN 70S. COMPLAINED OF HEAD ACHE AND MEDICATIONS WILL BE GIVEN ORDERED. SAFETY AND FALL PRECAUTIONS IN PLACE. BED IN LOW POSITION AND LOCKED. CALL LIGHT IN REACH. ALL NEEDS MET AT THIS TIME.WILL CONTINUE TO MONITOR.
[2019-02-25] MEDS: MUPIROCIN 2% OINT 22 GM TUBE NS SCH (08:37)
[2019-02-25] MEDS: CITALOPRAM 10 MG TABLET PO SCH (08:39)
[2019-02-25] MEDS: DOCUSATE SODIUM 100 MG CAPSULE PO SCH (08:40)
[2019-02-25] MEDS: CULTURELLE CAPSULE PO SCH (08:40)
[2019-02-25] MEDS: ASPIRIN EC 81 MG TABLET.DR PO SCH (08:41)
[2019-02-25] MEDS: ACETAMINOPHEN 325 MG TABLET PO PRN (08:41)
[2019-02-25] MEDS: OXYBUTYNIN CHLORIDE 5 MG TABLET PO SCH (08:41)
[2019-02-25] MEDS: FERROUS SULFATE 325 MG TABEC PO SCH (08:42)
[2019-02-25] MEDS: ISOSORBIDE MONONITRATE 30 MG TAB.SR.24H PO SCH (08:44)
[2019-02-25] MEDS: PANTOPRAZOLE SODIUM 40 MG TABLET.DR PO SCH (08:45)
[2019-02-25] MEDS: FUROSEMIDE 20 MG/2 ML VIAL IV SCH (08:47)
--- NOTE | 2019-02-25 10:47 | NUR ---
PHARMACY CLINICAL NOTES (VANCOMYCIN DOSING) S: To continue vanco dosing for this 73 YO female with DX of COPD exacerbation and pna O: BUN/SCR 15/0.9, WBC 10.9, TEMP 98.7 wt 1103 kg ht 160 cm A/P: Will continue same dose of vanco to 1500 mg IVPB q23h for today. 3rd dose today @ 1600. Will order level prior to 4th dose (ordered for 02/26 at 1430). Pharmacy shall review the level when available & adjust the dose if needed. Will continue to monitor.
[2019-02-25] MEDS ORDERED: PIPE3.379 IV (10:51)
[2019-02-25 11:30] VITALS: BP 101/65
[2019-02-25 15:24] VITALS: BP 121/59
--- NOTE | 2019-02-25 15:45 | NUR ---
PATIENT D/C TO [facility]. PATIENT IN STABLE CONDITION. D/C INSTRUCTIONS GIVEN AND SENT WITH PATIENT. REPORT CALLED TO SNF AND SPOKE WITH BELTRAN AND REPORT GIVEN. IV LEFT IN FOR ANTIBIOTICS ADMINISTRATION. ID BAND TAKEN OF PATIENT. PATIENT REFUSED TO TAKE PICTURES BEFORE D/C STATING THERE IS NOTHING ON MY SKIN. PATENT LEFT WITH ALL BELONGINGS AND LIST WAS SIGNED. DUMONT CATH WAS D/C AT 1300 AND PATIENT WAS ABLE TO VOID BEFORE D/C.
== END 2019-02-25 15:55 | DRG 871 ==
LOC: ER 15:00 → TELE3 17:09 → MEDSURG3 02-25 14:17
PROVIDERS: ADMIT Internal Medicine; ATTEND Internal Medicine
DX: A41.9 Sepsis, unspecified organism (principal); J15.6 Pneumonia due to other Gram-negative bacteria; J96.21 Acute and chronic respiratory failure with hypoxia; I50.43 Acute on chronic combined systolic (congestive) and diastolic (congestive) heart failure; J44.0 Chronic obstructive pulmonary disease with (acute) lower respiratory infection; N39.0 Urinary tract infection, site not specified; J44.1 Chronic obstructive pulmonary disease with (acute) exacerbation; D68.59 Other primary thrombophilia; Z22.322 Carrier or suspected carrier of Methicillin resistant Staphylococcus aureus; B96.20 Unspecified Escherichia coli [E. coli] as the cause of diseases classified elsewhere; I11.0 Hypertensive heart disease with heart failure; K21.9 Gastro-esophageal reflux disease without esophagitis; M19.90 Unspecified osteoarthritis, unspecified site; M81.0 Age-related osteoporosis without current pathological fracture; Z86.73 Personal history of transient ischemic attack (TIA), and cerebral infarction without residual deficits; Z79.51 Long term (current) use of inhaled steroids; I87.2 Venous insufficiency (chronic) (peripheral); I45.10 Unspecified right bundle-branch block; I25.10 Atherosclerotic heart disease of native coronary artery without angina pectoris; G47.33 Obstructive sleep apnea (adult) (pediatric); F20.9 Schizophrenia, unspecified; F41.9 Anxiety disorder, unspecified; E78.5 Hyperlipidemia, unspecified; E11.9 Type 2 diabetes mellitus without complications; E05.90 Thyrotoxicosis, unspecified without thyrotoxic crisis or storm; D50.9 Iron deficiency anemia, unspecified; E66.01 Morbid (severe) obesity due to excess calories; Z68.39 Body mass index [BMI] 39.0-39.9, adult; Z79.84 Long term (current) use of oral hypoglycemic drugs; Z79.899 Other long term (current) drug therapy
CPT/HCPCS: 36415; 70030-TC; 71045; 82378; 83550; 83605; 83735; 84100; 85025; 87040; 87077; 87086; 87400; 93005; 94640; 94664; A4663; G0378; J1200; J1940; J1956; J2543; J3370; J3590; J7030; J7040; J7060

== ENCOUNTER 2019-03-10 16:58 | Inpatient (IN) | payer MEDICARE, OTHER ==
[~2019-03-10] VITALS: Ht 160 cm; Wt 105.8 kg
[~2019-03-10 16:58] MED LIST changes: -ALBUTEROL HFA; -FLUT1BLS IH; -GUAI-671 PO; +PIPE3.379 IV
--- NOTE | 2019-03-10 17:00 | NUR ---
PT IS A/OX3, BIB PRIVATE AMBULANCE FROM [facility], C/O BLE SWELLING. UPON ASSESSMENT, BLE EDEMA PRESENT W/ GENERALIZED REDNESS. PT SPO2 89% ON ROOM AIR, SUPPLEMENTAL O2 ADMIN VIA N/C 3 LPM SPO2 NOW 100%. NAD NOTED AT THIS TIME. LUNG SOUNDS ARE CLEAR, SKIN IS TAUGHT, DRY, AND WARM TO TOUCH. VSS. PT DENIES C/P, SOB, N/V/D, DIZZINESS, HEADACHE.
[2019-03-10] MEDS ORDERED: diphenhydrAMINE 50 MG/1 ML VIAL IV ONE (17:15)
[2019-03-10] MEDS ORDERED: FAMOTIDINE. 20 MG/2 ML VIAL IV ONE ×2 (17:15→17:24)
[2019-03-10] MEDS ORDERED: predniSONE 50 MG TABLET PO ONE (17:15)
[2019-03-10] MEDS ORDERED: predniSONE 50 MG TABLET ONE (17:24)
[2019-03-10] MEDS ORDERED: diphenhydrAMINE 50 MG/1 ML VIAL ONE (17:24)
[2019-03-10 17:28] LABS: BASOPHILS # (AUTO) 0.1 K/uL (0.0-8.0); BASOPHILS % (AUTO) 1.1 % (0.0-2.0); EOSINOPHILS # (AUTO) 0.2 K/uL (0.0-0.7); HEMATOCRIT 42.8 % (31.2-41.9); HEMOGLOBIN 13.6 g/dL (10.9-14.3); LYMPHOCYTES # (AUTO) 1.2 K/uL (20.0-40.0); LYMPHOCYTES % (AUTO) 16.4 % (20.5-51.5); MEAN CORPUSCULAR HEMOGLOBIN 23.3 uug (24.7-32.8); MEAN CORPUSCULAR HGB CONC 32 g/dL (32.3-35.6); MEAN CORPUSCULAR VOLUME 73.5 fL (75.5-95.3); MONOCYTES # (AUTO) 0.5 K/uL (2.0-10.0); NEUTROPHILS # (AUTO) 5.5 K/uL (1.8-8.9); NEUTROPHILS % (AUTO) 73.5 % (38.5-71.5); PLATELET COUNT (AUTO) 436 K/uL (179-408); RED BLOOD CELL COUNT(AUTO) 5.82 MIL/uL (3.63-4.92); WHITE BLOOD COUNT (AUTO) 7.5 K/uL (3.8-11.8)
[2019-03-10 17:37] LABS: CREATININE 0.9 mg/dL (0.6-1.3); POTASSIUM 4.4 mmol/L (3.5-5.1)
[2019-03-10] MEDS ORDERED: IPRA3AMP23 IH (17:40)
[2019-03-10] MEDS ORDERED: FERR325T28 PO (17:40)
[2019-03-10 17:50] LABS: BILIRUBIN,DIRECT 0.2 mg/dL (0.0-0.2); BILIRUBIN,TOTAL 0.4 mg/dL (0.2-1.0); TOTAL PROTEIN, SERUM 7.7 g/dL (6.4-8.2)
[2019-03-10 18:07] LABS: LYMPHOCYTES % (MANUAL) 21 % (20-40); MONOCYTES % (MANUAL) 6 % (2-10); NEUTROPHILS % (MANUAL) 73 % (42-75)
[2019-03-10] MEDS ORDERED: Z GUARD REMEDY PASTE 57 GM TUBE TOP PRN (18:15)
[2019-03-10] MEDS ORDERED: ALBUTEROL SULFATE 2.5 MG/3 ML NEBU NEB PRN (18:15)
[2019-03-10] MEDS ORDERED: ONDANSETRON 4 MG/2 ML VIAL IV PRN (18:15)
[2019-03-10] MEDS ORDERED: HYDROCODONE/APAP 5-325MG TABLET PO PRN (18:15)
[2019-03-10] MEDS ORDERED: methylPREDNISolone SOD SUCC 125 MG/2 ML VIAL IV ONE (18:15)
[2019-03-10] MEDS ORDERED: NITROGLYCERIN 0.4 MG/TAB BOTTLE SL PRN (18:15)
[2019-03-10] MEDS ORDERED: diphenhydrAMINE 50 MG/1 ML VIAL IV PRN (18:15)
[2019-03-10] MEDS ORDERED: MAGNESIUM HYDROXIDE 30 ML LIQUID UDC PO PRN (18:15)
[2019-03-10] MEDS ORDERED: methylPREDNISolone SOD SUCC 125 MG/2 ML VIAL ONE (18:19)
--- NOTE | 2019-03-10 18:38 | NUR ---
PT TRANSFERED TO FLOOR IN STABLE CONDITION.
--- NOTE | 2019-03-10 18:50 | NUR ---
Received pt. from ER on [facility]. Pt. is here for CHF exacerbation, rash. Vital signs stable temperature 98.8, O2 97% on 2 L NC, RR 18, BP 133/52/ HR 81. Will endorse to PM nurse
[2019-03-10 19:29] VITALS: BP 133/52
[2019-03-10] MEDS: FUROSEMIDE 40 MG/4 ML VIAL IV SCH (20:15)
[2019-03-10] MEDS: MONTELUKAST SODIUM 10 MG TABLET PO SCH (20:16)
[2019-03-10] MEDS: ATORVASTATIN 10 MG TABLET PO SCH (20:16)
[2019-03-10] MEDS ORDERED: PRAVASTATIN SODIUM 10 MG PO SCH (21:00)
[2019-03-11 00:17] VITALS: BP 92/40
[2019-03-11] MEDS: ACETAMINOPHEN 325 MG TABLET PO PRN ×2 (00:45→20:31)
[2019-03-11 05:16] VITALS: BP 100/47
--- NOTE | 2019-03-11 05:21 | NUR ---
Patient slept intermittently throughout the night. No longer complained of itchiness after benadryl injection. Patient's blood pressure has been borderline low, lasix injection held. No other complaints were made. Attended all needs. Ensured safety and comfort.
[2019-03-11] MEDS: FUROSEMIDE 40 MG/4 ML VIAL IV SCH ×2 (05:54)
[2019-03-11 06:53] LABS: BASOPHILS % (AUTO) 0.3 % (0.0-2.0); HEMATOCRIT 41.4 % (31.2-41.9); HEMOGLOBIN 13.2 g/dL (10.9-14.3); LYMPHOCYTES # (AUTO) 0.3 K/uL (20.0-40.0); MEAN CORPUSCULAR HEMOGLOBIN 23.2 uug (24.7-32.8); MEAN CORPUSCULAR HGB CONC 32 g/dL (32.3-35.6); MEAN CORPUSCULAR VOLUME 72.7 fL (75.5-95.3); MONOCYTES % (AUTO) 0.7 % (0.0-11.0); NEUTROPHILS # (AUTO) 3.6 K/uL (1.8-8.9); PLATELET COUNT (AUTO) 423 K/uL (179-408); RED BLOOD CELL COUNT(AUTO) 5.69 MIL/uL (3.63-4.92)
[2019-03-11 07:06] LABS: ALANINE AMINOTRANSFERASE 11 U/L (14-59); ALKALINE PHOSPHATASE 69 U/L (50-136); ASPARTATE AMINOTRANSFERASE 13 U/L (15-37); BILIRUBIN,TOTAL 0.1 mg/dL (0.2-1.0); CARBON DIOXIDE 32 mmol/L (21-32); CHLORIDE 98 mmol/L (98-107); CHOLESTEROL 136 mg/dL (<200); GLUCOSE 195 mg/dL (74-106); HDL CHOLESTEROL 44 mg/dL (40-60); PHOSPHOROUS 4.2 mg/dL (2.5-4.9); POTASSIUM 4.5 mmol/L (3.5-5.1); TOTAL PROTEIN, SERUM 7.3 g/dL (6.4-8.2); TRIGLYCERIDES 37 MG/DL (30-150); UREA NITROGEN, BLOOD 9 mg/dL (7-18)
[2019-03-11 07:11] LABS: THYROID STIMULATING HORMONE 0.138 mIU/mL (0.358-3.740)
[2019-03-11] MEDS: ASPIRIN EC 81 MG TABLET.DR PO SCH (08:39)
[2019-03-11] MEDS: CITALOPRAM 10 MG TABLET PO SCH (08:40)
[2019-03-11] MEDS: DOCUSATE SODIUM 100 MG CAPSULE PO SCH ×2 (08:42→16:35)
[2019-03-11] MEDS: PANTOPRAZOLE SODIUM 40 MG TABLET.DR PO SCH (08:42)
[2019-03-11] MEDS: glipiZIDE 5 MG TABLET PO SCH ×2 (08:42→16:35)
[2019-03-11] MEDS: methylPREDNISolone SOD SUCC 40 MG/ML VIAL IV SCH ×3 (08:43→16:39)
[2019-03-11] MEDS: ISOSORBIDE MONONITRATE 30 MG TAB.SR.24H PO SCH (08:58)
[2019-03-11] MEDS: OXYBUTYNIN CHLORIDE 5 MG TABLET PO SCH (09:48)
[2019-03-11] MEDS: FUROSEMIDE 40 MG TABLET PO SCH ×2 (11:16→16:39)
[2019-03-11] MEDS: HEPARIN SODIUM,PORCINE 5,000 UNITS/ML VIAL SQ SCH ×2 (11:19→16:50)
--- NOTE | 2019-03-11 11:34 | NUR ---
Received pt. resting in bed alert oriented x4 farsi speaking. IV in L AC 20 gauge intact patent saline lock. Pt. has sutton catheter draining clear yellow urine. Pt. on 3L NC. Spoke to Dr. Wilson about pt BP in 90s systolic in 40s diastolic. said to hold Lasix if BP less than 90. Pt. had 1 BM. Used [employer] benefits consultant and pt. stated she denied pain/ discomfort. Pt. denies SOB/ difficulty breathing. safety measures in place. call light within reach. will continue to monitor pt.
[2019-03-11] MEDS ORDERED: ASPI81TA31 PO (11:40)
[2019-03-11 12:04] VITALS: BP 124/43
--- NOTE | 2019-03-11 12:15 | NUR ---
WOUND CARE CONSULT: PT SITTING IN CHAIR AT THIS TIME AND REFUSING SKIN ASSESSMENT. PT AMBULATES TO BATHROOM WITH ASSISTANCE PER NURSING STAFF. DUMONT CATH NOTED. WILL SEE PT PT CONDITION PERMITS. CURRENT KALEN SCORE IS 18.
--- NOTE | 2019-03-11 12:35 | NUR ---
WOUND CARE: PT AGREED TO HAVE SKIN ASSESSMENT. RASH NOTED TO INNER THIGHS, PERINEUM, BUTTOCKS, GROIN AND ABDOMINAL FOLDS WITH MOISTURE, WELL PEELING SKIN TO CHEST AND BACK AND REDNESS WITH EDEMA TO BILATERAL LOWER LEGS, PRESENT ON ADMISSION. DEFER TO MD FOR PEELING SKIN TO CHEST AND BACK AND LOWER LEG REDNESS. RECOMMENDATIONS MADE FOR RASH AND FOR SKIN PROTECTION. DISCUSSED WITH NURSING STAFF. WILL SEE PRN. DUMONT CATH NOTED TO BE LEAKING.
[2019-03-11 14:45] VITALS: BP 108/43
[2019-03-11] MEDS: CLOTRIMAZOLE/BETAMET DIPROP CREAM 15 GM TUBE TOP SCH ×2 (15:14→21:31)
--- NOTE | 2019-03-11 15:23 | NUR ---
Provided pt. with bed bath. Cleaned with soap and water, patted dry, and applied prescribed ointment to abdomen, buttocks, groin, perineal, inner thigh area. Readjusted Davenport catheter as earlier it was noted to be leaking during assessment with wound care nurse. call light within reach. Will continue to monitor.
--- NOTE | 2019-03-11 18:54 | NUR ---
pt. resting in chair comfortably. pt. on 2 L NC. Pt. has IV in L AC 20 gauge intact patent saline lock. pt. has sutton catheter in draining clear yellow urine. pt. on tele monitor in normal sinus rhythm. vital signs stable. pt. compliant with care. safety measures in place. call light within reach. will endorse to PM nurse
--- NOTE | 2019-03-11 19:20 | NUR ---
RECEIVED PT AWAKE, ALERT AND ORIENTEDX4. PT SHOWS NO ACUTE DISTRESS. IV INTACT. DUMONT INTACT. PT ON 2L NASAL CANNULA.SAFETY AND COMFORT PROVIDED. WILL CONTINUE TO MONITOR.
[2019-03-11 20:03] VITALS: BP 109/55
[2019-03-11] MEDS: MONTELUKAST SODIUM 10 MG TABLET PO SCH (20:31)
[2019-03-11] MEDS: ATORVASTATIN 10 MG TABLET PO SCH (20:31)
[2019-03-12 00:39] VITALS: BP 119/70
[2019-03-12 04:56] VITALS: BP 130/48
--- NOTE | 2019-03-12 06:13 | NUR ---
PT SLEPT INTERMITTENTLY. PT SHOWS NO SIGNS OF ACUTE DISTRESS. IV INTACT. DUMONT INTACT. PT ON NASAL CANNULA. PUT LOTRISONE CREAM ON THE PT. PT JUST WANT TO STAY ON THE CHAIR. SAFETY AND COMFORT PROVIDED. PRESCRIBED MEDICATION GIVEN AND PT TOLERATED IT WELL. ALL NEEDS ARE MET. WILL ENDORSE TO INCOMING NURSE FOR CONTINUITY OF CARE.
--- NOTE | 2019-03-12 07:10 | NUR ---
RECEIVED PATIENT RESTING ON CHAIR, PATIENT BEING SEEN BY SUPERVISOR BORDER DEPARTMENT. PATIENT ALERT AND ORIENTED X3. ELEVATED PATIENTS LEGS FOR FOR COMFORT. CALL LIGHT WITHIN REACH. WILL CONTINUE TO MONITOR.
[2019-03-12] MEDS: glipiZIDE 5 MG TABLET PO SCH ×2 (08:18→17:12)
[2019-03-12] MEDS: HEPARIN SODIUM,PORCINE 5,000 UNITS/ML VIAL SQ SCH ×2 (08:19→17:11)
[2019-03-12] MEDS: methylPREDNISolone SOD SUCC 40 MG/ML VIAL IV SCH ×3 (08:19→17:11)
[2019-03-12] MEDS: ISOSORBIDE MONONITRATE 30 MG TAB.SR.24H PO SCH (08:19)
[2019-03-12] MEDS: PANTOPRAZOLE SODIUM 40 MG TABLET.DR PO SCH (08:21)
[2019-03-12] MEDS: FUROSEMIDE 40 MG TABLET PO SCH ×2 (08:21→17:12)
[2019-03-12] MEDS: CLOTRIMAZOLE/BETAMET DIPROP CREAM 15 GM TUBE TOP SCH ×2 (08:21→20:45)
[2019-03-12] MEDS: CITALOPRAM 10 MG TABLET PO SCH (08:22)
[2019-03-12] MEDS: ASPIRIN EC 81 MG TABLET.DR PO SCH (08:22)
[2019-03-12] MEDS: DOCUSATE SODIUM 100 MG CAPSULE PO SCH ×2 (08:22→17:12)
[2019-03-12] MEDS: FERROUS SULFATE 325 MG TABEC PO SCH (08:22)
[2019-03-12 11:32] VITALS: BP 110/43
[2019-03-12 15:11] VITALS: BP 102/48
[2019-03-12] MEDS: ACETAMINOPHEN 325 MG TABLET PO PRN (17:20)
--- NOTE | 2019-03-12 18:29 | NUR ---
PATIENT RESTED IN THE CHAIR THROUGHOUT THE DAY. PATIENT DENIES PAIN AND DISCOMFORT. NO ACUTE DISTRESS NOTED THROUGHOUT SHIFT. SAFETY MEASURES PROVIDED.
[2019-03-12 20:04] VITALS: BP 101/37
[2019-03-12] MEDS: MONTELUKAST SODIUM 10 MG TABLET PO SCH (20:44)
[2019-03-12] MEDS: ATORVASTATIN 10 MG TABLET PO SCH (20:44)
[2019-03-13 04:58] VITALS: BP 125/48
--- NOTE | 2019-03-13 08:00 | NUR ---
RECEIVED PT RESTING IN CHAIR AT THIS TIME. FASHION DIRECTOR PARTY PLAN SALES RN STATED THAT PT SPENT THE NIGHT ON CHAIR. LEGS APPEAR EDEMATOUS AND SWOLLEN. NO ACUTE DISTRESS NOTE. NO SOB NOTED. SAFETY MEASURES IMPLEMENTED. CALL LIGHT WITHIN REACH. PT ON O2 2 2L/M VIA N/C. WILL CONTINUE TO MONITOR.
[2019-03-13] MEDS: ASPIRIN EC 81 MG TABLET.DR PO SCH (10:10)
[2019-03-13] MEDS: FUROSEMIDE 40 MG TABLET PO SCH ×2 (10:10→17:48)
[2019-03-13] MEDS: ISOSORBIDE MONONITRATE 30 MG TAB.SR.24H PO SCH (10:11)
[2019-03-13] MEDS: DOCUSATE SODIUM 100 MG CAPSULE PO SCH ×2 (10:11→17:47)
[2019-03-13] MEDS: FERROUS SULFATE 325 MG TABEC PO SCH (10:11)
[2019-03-13] MEDS: glipiZIDE 5 MG TABLET PO SCH ×2 (10:11→17:48)
[2019-03-13] MEDS: CITALOPRAM 10 MG TABLET PO SCH (10:12)
[2019-03-13] MEDS: OXYBUTYNIN CHLORIDE 5 MG TABLET PO SCH (10:12)
[2019-03-13] MEDS: PANTOPRAZOLE SODIUM 40 MG TABLET.DR PO SCH (10:12)
[2019-03-13] MEDS: HEPARIN SODIUM,PORCINE 5,000 UNITS/ML VIAL SQ SCH ×2 (10:14→17:49)
[2019-03-13] MEDS: methylPREDNISolone SOD SUCC 40 MG/ML VIAL IV SCH ×3 (10:14→17:47)
[2019-03-13] MEDS: CLOTRIMAZOLE/BETAMET DIPROP CREAM 15 GM TUBE TOP SCH (10:25)
[2019-03-13 11:53] VITALS: BP 105/52
--- NOTE | 2019-03-13 12:00 | NUR ---
PT PLACED IN BED WITH THE ASSISTANCE OF PT EARLY IN THE MORNING. PT ALERT AND ORIENTED X 3. PT DENIES PAIN AT THIS TIME. NO ACUTE DISTRESS OR SOB NOTED. BED LOCKED AND IN LOW POSITION. PT IS DIET AND MEDICATION COMPLIANT. CALL LIGHT WITHIN REACH. SAFETY MEASURES OBSERVED AND IMPLEMENTED. WILL CONTINUE TO MONITOR.
[2019-03-13 15:39] VITALS: BP 130/71
--- NOTE | 2019-03-13 18:00 | NUR ---
pt awaiting transportation via ambulance to [facility]. shift report given too incoming nurse. noc nurse to remove iv. discharge instructions and forms completed. [facility]. pm meds given. lesley cervantes removed at 1545. pt voided at 1730.
--- NOTE | 2019-03-13 19:00 | NUR ---
received pt sitted on a bedside chair, no acute distress noted, vital signs w/in normal limits,alert and verbally resp[onsive. awaiting [facility]
--- NOTE | 2019-03-13 21:28 | NUR ---
dc instructions reviewed with pt., iv site on rt forarm taken out, no bleeding noted. transport team here , report given , pt in apparently fair condition. dc via [facility] with all her belongings.
== END 2019-03-13 21:28 | DRG 291 ==
LOC: ER 16:59 → TELE3 18:19 → MEDSURG3 03-12 10:20
PROVIDERS: ADMIT Internal Medicine; ATTEND Internal Medicine
DX: I11.0 Hypertensive heart disease with heart failure (principal); J96.21 Acute and chronic respiratory failure with hypoxia; G93.41 Metabolic encephalopathy; Z68.41 Body mass index [BMI] 40.0-44.9, adult; I69.359 Hemiplegia and hemiparesis following cerebral infarction affecting unspecified side; I50.33 Acute on chronic diastolic (congestive) heart failure; Z99.81 Dependence on supplemental oxygen; J44.9 Chronic obstructive pulmonary disease, unspecified; K21.9 Gastro-esophageal reflux disease without esophagitis; F20.9 Schizophrenia, unspecified; E66.01 Morbid (severe) obesity due to excess calories; M19.90 Unspecified osteoarthritis, unspecified site; E05.90 Thyrotoxicosis, unspecified without thyrotoxic crisis or storm; E11.9 Type 2 diabetes mellitus without complications; R71.8 Other abnormality of red blood cells; I87.2 Venous insufficiency (chronic) (peripheral); F03.90 Unspecified dementia, unspecified severity, without behavioral disturbance, psychotic disturbance, mood disturbance, and anxiety; Z79.899 Other long term (current) drug therapy; Z79.84 Long term (current) use of oral hypoglycemic drugs; I27.20 Pulmonary hypertension, unspecified; I25.10 Atherosclerotic heart disease of native coronary artery without angina pectoris; L27.0 Generalized skin eruption due to drugs and medicaments taken internally
CPT/HCPCS: 36415; 70030-TC; 71045; 83605; 83735; 84100; 84443; 85025; 85730; 87040; 93005; 93307; 94640; A4663; G0378; J1200; J1644; J1940; J2920; J2930; J3490; J7512

== ENCOUNTER 2022-05-09 20:36 | Inpatient (IN) | payer MEDICARE, OTHER ==
[~2022-05-09] VITALS: Ht 152.4 cm; Wt 93.9 kg
[~2022-05-09 20:36] MED LIST changes: -ASPI-605 PO; +ASPI81TA31 PO; -IPRA0.2S6 NEB; +IPRA3AMP23 IH; -ISOS30TA6 PO; +ISOS30TA86 PO; -OXYB5TAB11 PO; +OXYB5TAB16 PO; -PANT40TA4 PO; +PANT40TA49 PO; -PIPE3.379 IV
[2022-05-09] MEDS ORDERED: CEFTRIAXONE 1 G in IV DEXTROSE 5% 50 ML IV ONE (21:00)
[2022-05-09] MEDS ORDERED: CEFTRIAXONE /D5W 50ML IVPB **ER PYXIS IV ONE (21:04)
[2022-05-09 21:09] LABS: ABG BASE EXCESS 4.6 mmol/L; ABG HCO3 35.1 mmol/L; ABG PH 7.239 (7.350-7.450); ABG PO2 260.4 mmHg (75.0-100.0); ABG SITE RIGHT RADIAL; ABG TOTAL HEMOGLOBIN 14.2 G/dL (12.0-16.0); MetHb 0.4 % (0.0-1.5); O2Hb 98.3 % (94.0-97.0)
[2022-05-09] MEDS ORDERED: AZITHROMYCIN IV 500 MG in IV DEXTROSE 5% 250 ML IV ONE (21:30)
[2022-05-09] MEDS ORDERED: VANCOMYCIN IV 1,000 MG in IV DEXTROSE 5% 250 ML IV ONE (21:45)
[2022-05-09 22:00] LABS: *BILIRUBIN,URIN NEGATIVE (NEGATIVE); *COLOR,URINE YELLOW (YELLOW); *KETONES,URINE NEGATIVE (NEGATIVE); *UROBILINOGEN,URINE 0.2 E.U./dl (NORMAL); LEUKOCYTE ESTERASE ,URINE 1+ (NEGATIVE); NITRITE, URINE POSITIVE (NEGATIVE); UGLUCOSE NEGATIVE (NEGATIVE)
[2022-05-09] MEDS ORDERED: ATOR10TA PO (22:00)
[2022-05-09] MEDS ORDERED: DULA1.5P SQ (22:00)
[2022-05-09] MEDS ORDERED: vibegron PO (22:00)
[2022-05-09] MEDS ORDERED: MAGN400O6 PO (22:00)
[2022-05-09] MEDS ORDERED: ANAS1TAB50 PO (22:00)
[2022-05-09] MEDS ORDERED: METO-356 PO (22:00)
[2022-05-09] MEDS ORDERED: SITA50TA PO (22:00)
[2022-05-09] MEDS ORDERED: CYAN100T44 PO (22:00)
[2022-05-09] MEDS ORDERED: AZITHROMYCIN 500MG/ D5W 250ML IVPB **ER PYXIS ONLY IV ONE (22:00)
[2022-05-09] MEDS ORDERED: VANCOMYCIN IV 200 ML ONE (22:00)
[2022-05-09] MEDS ORDERED: ERGO400C PO (22:00)
[2022-05-09 22:08] LABS: *BLOOD, URINE TRACE (NEGATIVE); *CLARITY,URINE HAZY (CLEAR)
[2022-05-09 22:10] LABS: BACTERIA,URINE MANY /HPF (NONE SEEN); SQUAMOUS EPITHELIAL CELL,UR FEW /HPF (NONE SEEN)
[2022-05-09 22:17] LABS: HEMATOCRIT 41.3 % (31.2-41.9); MEAN CORPUSCULAR HEMOGLOBIN 25.3 uug (24.7-32.8); MEAN CORPUSCULAR VOLUME 78.7 fL (75.5-95.3); PLATELET COUNT (AUTO) 278 K/uL (179-408)
[2022-05-09 22:33] LABS: ALANINE AMINOTRANSFERASE 8 U/L (14-59); ALKALINE PHOSPHATASE 66 U/L (50-136); ASPARTATE AMINOTRANSFERASE 9 U/L (15-37); BILIRUBIN,DIRECT 0.1 mg/dL (0.0-0.2); BILIRUBIN,TOTAL 0.3 mg/dL (0.2-1.0); CHLORIDE 91 mmol/L (98-107); CREATININE 0.9 mg/dL (0.6-1.3); GLUCOSE 124 mg/dL (74-106); POTASSIUM 4.5 mmol/L (3.5-5.1); TOTAL PROTEIN, SERUM 7.4 g/dL (6.4-8.2); UREA NITROGEN, BLOOD 15 mg/dL (7-18)
--- NOTE | 2022-05-09 22:37 | NUR ---
Patient is hypotensive SBP low 80s high 70s. Dr Finch notified
[2022-05-09 22:39] LABS: CARBON DIOXIDE 40 mmol/L (21-32)
[2022-05-09 22:45] LABS: ABG HCO3 39.7 mmol/L; ABG PCO2 89.5 mmHg (35.0-45.0); ABG PH 7.265 (7.350-7.450); ABG PO2 101.2 mmHg (75.0-100.0); ABG SITE RIGHT RADIAL; ABG TOTAL HEMOGLOBIN 13.8 G/dL (12.0-16.0); COHb 0.9 % (0.5-1.5); MetHb 0.4 % (0.0-1.5); O2Hb 96.1 % (94.0-97.0); VENT MODE BIPAP 15/5
[2022-05-09] MEDS ORDERED: IV NORMAL SALINE 500 ML BAG IV ONE (22:45)
[2022-05-09] MEDS ORDERED: methylPREDNISolone SOD SUCC 125 MG/2 ML VIAL IV ONE (23:00)
[2022-05-09] MEDS ORDERED: ETOMIDATE 20 MG/10 ML VIAL IV ONE (23:00)
[2022-05-09] MEDS ORDERED: FUROSEMIDE 40 MG/4 ML VIAL IV ONE (23:00)
[2022-05-09] MEDS ORDERED: SUCCINYLCHOLINE CHLORIDE 200 MG/10 ML VIAL IV ONE (23:00)
[2022-05-09] MEDS ORDERED: PROPOFOL 100 ML ONE (23:00)
[2022-05-09] MEDS ORDERED: ALBUTEROL SULFATE 2.5 MG/3 ML NEBU NEB ONE (23:30)
[2022-05-09] MEDS ORDERED: methylPREDNISolone SOD SUCC 125 MG/2 ML VIAL ONE (23:35)
[2022-05-09] MEDS ORDERED: FUROSEMIDE 40 MG/4 ML VIAL ONE (23:35)
[2022-05-09] MEDS ORDERED: ALBUTEROL SULFATE 2.5 MG/3 ML NEBU ONE (23:40)
--- NOTE | 2022-05-09 23:43 | NUR ---
Called [facility] for panal call, Sydnee De La Rosa NP career and transition teacher.
[2022-05-09] MEDS: PROPOFOL 100 ML IV PRN (23:45)
--- NOTE | 2022-05-09 23:45 | NUR ---
Per Manohar RODRIGUEZbingo caller, no CCU bed available at the moment. Patient will be in ER until CCU bed is available. ER charting will be done
[2022-05-10] VITALS (24 sets, daily range): BP systolic 92–124; BP diastolic 41–69
--- NOTE | 2022-05-10 00:10 | NUR ---
Rosa CAP SEWER - hospitalist accepted the patient
[2022-05-10] MEDS ORDERED: ENOXAPARIN SODIUM 100 MG/ML DISP.SYRIN SQ ONE ×2 (00:30→00:32)
[2022-05-10 00:38] LABS: ABG BASE EXCESS 7.4 mmol/L; ABG HCO3 35.2 mmol/L; ABG PCO2 62.2 mmHg (35.0-45.0); ABG PO2 94.5 mmHg (75.0-100.0); ABG SITE RIGHT RADIAL; ABG TOTAL HEMOGLOBIN 15.5 G/dL (12.0-16.0); COHb 1.2 % (0.5-1.5); MetHb 0.3 % (0.0-1.5); O2Hb 96.3 % (94.0-97.0); VENT MODE VENT - A/C; VT, ABG 550 mL
[2022-05-10] MEDS ORDERED: DEXTROSE 50% 50 ML DISP.SYRIN IV PRN (00:45)
[2022-05-10] MEDS ORDERED: NOREPINEPHRINE BITARTRATE 8 MG in IV NORMAL SALINE 242 ML IV PRN (00:45)
[2022-05-10] MEDS ORDERED: IPRATROPIUM BROMIDE 0.5 MG/2.5 ML NEBU NEB SCH (00:45)
[2022-05-10] MEDS ORDERED: ALBUTEROL SULFATE 2.5 MG/3 ML NEBU IH SCH (00:45)
[2022-05-10] MEDS ORDERED: ONDANSETRON 4 MG/2 ML VIAL IV PRN (00:45)
--- NOTE | 2022-05-10 01:00 | NUR ---
Called [facility] for hospital bed
--- NOTE | 2022-05-10 01:10 | NUR ---
Perineal care done. Skin intact, no ulcers noted.
[2022-05-10] MEDS ORDERED: NOREPINEPHRINE BITARTRATE 4 MG/4 ML VIAL IV ONE (01:46)
[2022-05-10] MEDS ORDERED: PROPOFOL 100 ML ONE (03:19)
--- NOTE | 2022-05-10 03:35 | NUR ---
Angle Lee CRIMINAL INVESTIGATOR [employer]UST[employer]S at bedside MSE in progress
--- NOTE | 2022-05-10 03:45 | NUR ---
called patient's sister Margarette, made aware about patient's admission to CCU
[2022-05-10] MEDS ORDERED: CEFEPIME HCL 1 G in IV DEXTROSE 5% 50 ML IV ONE (06:00)
[2022-05-10 06:02] LABS: ABG BASE EXCESS 10.1 mmol/L; ABG HCO3 32.3 mmol/L; ABG PCO2 35.2 mmHg (35.0-45.0); ABG PH 7.581 (7.350-7.450); ABG PO2 103.3 mmHg (75.0-100.0); ABG SITE LEFT RADIAL; ABG TOTAL HEMOGLOBIN 14.4 G/dL (12.0-16.0); COHb 0.9 % (0.5-1.5); MetHb 0.3 % (0.0-1.5); O2Hb 97.7 % (94.0-97.0); VENT MODE VENT - A/C; VT, ABG 550 mL
[2022-05-10] MEDS ORDERED: CEFEPIME HCL 1 G VIAL ONE (06:06)
[2022-05-10] MEDS: BLOOD SUGAR DIAGNOSTIC 1 EACH STRIP VI SCH ×4 (06:10→23:42)
--- NOTE | 2022-05-10 06:52 | NUR ---
BRYCE Hudson RN
[2022-05-10] MEDS ORDERED: PROPOFOL 200 MG/20 ML BOTTLE ONE (07:12)
--- NOTE | 2022-05-10 07:54 | NUR ---
REPORT WAS GIVEN TO DYNAMIC ETCHING PROCESSOR. PT WAS TRANSFERED TO ROOM CCU #4.
[2022-05-10] MEDS ORDERED: IPRATROPIUM BROMIDE 0.5 MG/2.5 ML NEBU NEB PRN (08:02)
[2022-05-10] MEDS ORDERED: ALBUTEROL SULFATE 2.5 MG/3 ML NEBU IH PRN (08:02)
--- NOTE | 2022-05-10 08:30 | NUR ---
Patient received from E.R. via own bed on ventilator ETT 7.0 22 LL A/C20 FIO2 60%, Tv 550, Peep +5 with saturation of 99%. No tachypnea on propofol running at max 50mcg/kg/min. neuro-martin responsive to touch with cough and gag reflex present. Hemodynamically stable on NSR with levophed running at 0.02mcg/kg/min. Upon receiving pt. titration of levophed started and 5 minutes later at 0835 pt. off levophed. IV line ot RIJ patent. BLE swollen and redness. Sacrum with non-blanchable redness noted. Will continue to monitor. Addendum: 05/10/22 at 1012 by FRITZ AVERY RN Patient also noted to have round non-tender abdominal area with a large protrusion at belly button area. left breast hot slight redness and induration noted as well.
--- NOTE | 2022-05-10 09:00 | NUR ---
Pulmonary services, Dr. Arrieta in the unit to examine pt. report given, orders received see order hx.
[2022-05-10 09:37] LABS: HEMATOCRIT 39.8 % (31.2-41.9); MEAN CORPUSCULAR HEMOGLOBIN 25.2 uug (24.7-32.8); MEAN CORPUSCULAR VOLUME 77.3 fL (75.5-95.3); PLATELET COUNT (AUTO) 262 K/uL (179-408)
[2022-05-10] MEDS: PANTOPRAZOLE SODIUM 40 MG VIAL IV SCH (09:49)
[2022-05-10] MEDS: methylPREDNISolone SOD SUCC 40 MG/ML VIAL IV SCH ×2 (09:49→21:20)
[2022-05-10] MEDS: FUROSEMIDE 40 MG/4 ML VIAL IV SCH ×2 (09:49→21:20)
[2022-05-10 09:54] LABS: BILIRUBIN,TOTAL 0.7 mg/dL (0.2-1.0); CREATININE 0.9 mg/dL (0.6-1.3); MAGNESIUM 1.6 mg/dL (1.8-2.4); PHOSPHOROUS 2.2 mg/dL (2.5-4.9); TOTAL PROTEIN, SERUM 5.9 g/dL (6.4-8.2)
[2022-05-10 10:03] LABS: THYROID STIMULATING HORMONE 0.544 mIU/mL (0.358-3.740)
[2022-05-10] MEDS: ENOXAPARIN SODIUM 100 MG/ML DISP.SYRIN SQ SCH ×2 (10:39→21:20)
[2022-05-10] MEDS: PROPOFOL 100 ML IV PRN ×4 (11:00→22:04)
--- NOTE | 2022-05-10 12:30 | NUR ---
PT's daughter Ms. Usha Ferguson at bedside, at this time she was updated of care plan.
[2022-05-10] MEDS: IPRATROPIUM BROMIDE 0.5 MG/2.5 ML NEBU NEB SCH ×2 (13:47→19:30)
[2022-05-10] MEDS: ALBUTEROL SULFATE 2.5 MG/3 ML NEBU NEB SCH ×2 (13:47→19:30)
[2022-05-10] MEDS ORDERED: CEFEPIME HCL 1 G in IV DEXTROSE 5% 50 ML IV SCH (14:00)
[2022-05-10] MEDS ORDERED: SODIUM PHOSPHATE MM 15 MMOL in IV NORMAL SALINE 250 ML IV ONE (16:00)
[2022-05-10] MEDS: CEFEPIME HCL 2 G in IV DEXTROSE 5% 100 ML IV SCH (16:20)
--- NOTE | 2022-05-10 18:37 | NUR ---
Left pt. adequately sedated, propofol running at 50mcg/kg/min. ETT 7.0 LL22 A/C 20, Tv 550, Peep +5, FIO2 60%. saturation of 100%. Hemodynamically stable on NSR Sinus bradycardia 55-60. RIJ TLC patent. Davenport catheter to gravity with adequate output. Will endorse for continuity of care.
[2022-05-10] MEDS: VANCOMYCIN IV 1,250 MG in IV DEXTROSE 5% 250 ML IV SCH (20:51)
[2022-05-10] MEDS: REMEDY ESSENTIAL ZINC PASTE 113 GM TOP SCH (21:21)
[2022-05-11] VITALS (38 sets, daily range): BP systolic 81–142; BP diastolic 35–75
[2022-05-11] MEDS ORDERED: NOREPINEPHRINE BITARTRATE 8 MG in IV NORMAL SALINE 242 ML IV PRN (00:15)
[2022-05-11] MEDS: ALBUTEROL SULFATE 2.5 MG/3 ML NEBU NEB SCH ×4 (00:44→21:32)
[2022-05-11] MEDS: IPRATROPIUM BROMIDE 0.5 MG/2.5 ML NEBU NEB SCH ×4 (00:44→21:32)
[2022-05-11] MEDS: PROPOFOL 100 ML IV PRN ×7 (01:46→21:09)
[2022-05-11] MEDS: CEFEPIME HCL 2 G in IV DEXTROSE 5% 100 ML IV SCH ×2 (04:45→16:30)
[2022-05-11 05:20] LABS: MEAN CORPUSCULAR HEMOGLOBIN 24.7 uug (24.7-32.8); MEAN CORPUSCULAR VOLUME 75.7 fL (75.5-95.3); PLATELET COUNT (AUTO) 261 K/uL (179-408)
[2022-05-11 05:39] LABS: BILIRUBIN,TOTAL 0.6 mg/dL (0.2-1.0); TOTAL PROTEIN, SERUM 5.7 g/dL (6.4-8.2)
[2022-05-11 05:41] LABS: MAGNESIUM 1.9 mg/dL (1.8-2.4)
[2022-05-11 05:52] LABS: THYROID STIMULATING HORMONE 0.348 mIU/mL (0.358-3.740)
[2022-05-11] MEDS: BLOOD SUGAR DIAGNOSTIC 1 EACH STRIP VI SCH ×3 (06:23→18:14)
[2022-05-11] MEDS: INSULIN REGULAR, HUMAN 300 UNIT/3 ML VIAL SQ PRN ×3 (06:23→18:21)
[2022-05-11] MEDS: POTASSIUM CHLORIDE 50 ML IV SCH ×4 (07:01→09:36)
--- NOTE | 2022-05-11 07:30 | NUR ---
REPORT GIVEN TO MICHAEL ELIZABETH
[2022-05-11] MEDS ORDERED: POTASSIUM CHLORIDE 20 MEQ POWDER PACKET PO ONE (08:15)
[2022-05-11] MEDS ORDERED: IPRA3AMP23 IH ×2 (08:50)
[2022-05-11] MEDS ORDERED: IPRA0.2S6 NEB (08:50)
[2022-05-11] MEDS ORDERED: ACCU CHECK XX (08:50)
[2022-05-11 09:04] LABS: ABG BASE EXCESS 9.1 mmol/L; ABG HCO3 29.4 mmol/L; ABG PCO2 27.9 mmHg (35.0-45.0); ABG PH 7.641 (7.350-7.450); ABG PO2 113.7 mmHg (75.0-100.0); ABG SITE RIGHT RADIAL; ABG TOTAL HEMOGLOBIN 13.8 G/dL (12.0-16.0); COHb 1.2 % (0.5-1.5); MetHb 0.3 % (0.0-1.5); O2Hb 97.5 % (94.0-97.0); VENT MODE VENT - A/C; VT, ABG 550 mL
[2022-05-11] MEDS: REMEDY ESSENTIAL ZINC PASTE 113 GM TOP SCH ×2 (09:35→20:42)
[2022-05-11] MEDS: methylPREDNISolone SOD SUCC 40 MG/ML VIAL IV SCH ×2 (09:35→21:10)
[2022-05-11] MEDS: PANTOPRAZOLE SODIUM 40 MG VIAL IV SCH (09:35)
[2022-05-11] MEDS: FUROSEMIDE 40 MG/4 ML VIAL IV SCH ×2 (09:35→21:10)
[2022-05-11] MEDS: ENOXAPARIN SODIUM 100 MG/ML DISP.SYRIN SQ SCH ×2 (09:40→21:33)
--- NOTE | 2022-05-11 11:40 | NUR ---
WOUND CARE CONSULT: PT PRESENTS WITH AREAS OF REDNESS TO UPPER BACK AND BREASTS WELL REDNESS/SWELLING TO LOWER LEGS AND RASH TO ABDOMINAL/GROIN FOLDS, PRESENT ON ADMISSION. DEFER TO PMD FOR UPPER BACK/BREAST REDNESS. RECOMMENDATIONS MADE FOR SKIN PROTECTION AND RASH. LEGS ELEVATED ON PILLOWS. FIRST STEP LOW AIRLOSS MATTRESS IS ON ORDER. MD IN AGREEMENT WITH PLAN OF CARE.
--- NOTE | 2022-05-11 17:40 | NUR ---
Pt remains intubated on CMV, Fio2 titrated to 30%. Spo2 and respirations wnl. In-line treatments given Q6. ETT repositioned Q2. ETT/oral sxn prn. Will continue to monitor.
--- NOTE | 2022-05-11 17:47 | NUR ---
Patient seen by consultants today. Ngt placed verified placement by CXR. Started feeding per dietary recommendations glucerna 1.2 @10 ml/hr with goal rate of 65ml/hr x22 hrs. pulmonogist made vent changes tidal volume to 450 and fiO2 has been titrated down to 30%. ABG and cxr ordered for tomorrow, output for the day was 1500 ml.
[2022-05-11] MEDS: CLOTRIMAZOLE 1% CREAM 30 GM TUBE TOP SCH (18:14)
[2022-05-11] MEDS: VANCOMYCIN IV 1,250 MG in IV DEXTROSE 5% 250 ML IV SCH (20:41)
[2022-05-12] VITALS (24 sets, daily range): BP systolic 90–120; BP diastolic 39–68
[2022-05-12] MEDS: PROPOFOL 100 ML IV PRN ×6 (00:57→22:19)
[2022-05-12] MEDS: ALBUTEROL SULFATE 2.5 MG/3 ML NEBU NEB SCH ×4 (04:36→19:23)
[2022-05-12] MEDS: IPRATROPIUM BROMIDE 0.5 MG/2.5 ML NEBU NEB SCH ×4 (04:36→19:23)
[2022-05-12] MEDS: CEFEPIME HCL 2 G in IV DEXTROSE 5% 100 ML IV SCH ×2 (04:43→17:46)
[2022-05-12 05:11] LABS: MEAN CORPUSCULAR HEMOGLOBIN 25.1 uug (24.7-32.8); MEAN CORPUSCULAR VOLUME 76.2 fL (75.5-95.3); PLATELET COUNT (AUTO) 264 K/uL (179-408)
[2022-05-12 05:23] LABS: BILIRUBIN,TOTAL 0.4 mg/dL (0.2-1.0); CREATININE 0.9 mg/dL (0.6-1.3); MAGNESIUM 2.4 mg/dL (1.8-2.4); PHOSPHOROUS 5.6 mg/dL (2.5-4.9); POTASSIUM 3.7 mmol/L (3.5-5.1); TOTAL PROTEIN, SERUM 5.9 g/dL (6.4-8.2)
[2022-05-12] MEDS: BLOOD SUGAR DIAGNOSTIC 1 EACH STRIP VI SCH ×4 (05:39→18:00)
[2022-05-12] MEDS: INSULIN REGULAR, HUMAN 300 UNIT/3 ML VIAL SQ PRN (06:01)
--- NOTE | 2022-05-12 07:30 | NUR ---
REPORT GIVEN TO MICHAEL OLIVEIRA
[2022-05-12] MEDS: REMEDY ESSENTIAL ZINC PASTE 113 GM TOP SCH ×2 (09:00→20:30)
[2022-05-12] MEDS: PANTOPRAZOLE SODIUM 40 MG VIAL IV SCH (09:00)
[2022-05-12] MEDS: FUROSEMIDE 40 MG/4 ML VIAL IV SCH ×2 (09:00→20:36)
[2022-05-12] MEDS: CLOTRIMAZOLE 1% CREAM 30 GM TUBE TOP SCH ×2 (09:00→17:46)
[2022-05-12] MEDS: ENOXAPARIN SODIUM 100 MG/ML DISP.SYRIN SQ SCH ×2 (09:00→20:25)
[2022-05-12] MEDS: methylPREDNISolone SOD SUCC 40 MG/ML VIAL IV SCH ×2 (09:00→20:36)
[2022-05-12 09:20] LABS: ABG BASE EXCESS 8.9 mmol/L; ABG HCO3 30.1 mmol/L; ABG PCO2 30.6 mmHg (35.0-45.0); ABG PO2 101.1 mmHg (75.0-100.0); ABG SITE RIGHT RADIAL; ABG TOTAL HEMOGLOBIN 14.5 G/dL (12.0-16.0); COHb 0.7 % (0.5-1.5); MetHb 0.2 % (0.0-1.5); O2Hb 97.4 % (94.0-97.0); VENT MODE VENT - A/C; VT, ABG 450 mL
[2022-05-12] MEDS ORDERED: SUCCINYLCHOLINE CHLORIDE 200 MG/10 ML VIAL IV ONE (10:51)
[2022-05-12] MEDS ORDERED: ETOMIDATE 20 MG/10 ML VIAL IV ONE (10:51)
[2022-05-12 11:16] LABS: IRON, SERUM 28 ug/dL (50-175)
[2022-05-12] MEDS: VANCOMYCIN IV 1,250 MG in IV DEXTROSE 5% 250 ML IV SCH (20:24)
[2022-05-12] MEDS: MUPIROCIN 2% OINT 22 GM TUBE NS SCH (20:24)
[2022-05-13] VITALS (24 sets, daily range): BP systolic 92–143; BP diastolic 42–79
[2022-05-13] MEDS ORDERED: IV NORMAL SALINE 250 ML IV PRN (00:01)
[2022-05-13] MEDS: BLOOD SUGAR DIAGNOSTIC 1 EACH STRIP VI SCH ×2 (00:51→05:04)
[2022-05-13] MEDS: INSULIN REGULAR, HUMAN 300 UNIT/3 ML VIAL SQ PRN ×2 (00:53→05:07)
[2022-05-13] MEDS: ALBUTEROL SULFATE 2.5 MG/3 ML NEBU NEB SCH ×4 (01:39→21:12)
[2022-05-13] MEDS: IPRATROPIUM BROMIDE 0.5 MG/2.5 ML NEBU NEB SCH ×4 (01:39→21:12)
[2022-05-13] MEDS: PROPOFOL 100 ML IV PRN ×2 (02:13→07:31)
[2022-05-13] MEDS: CEFEPIME HCL 2 G in IV DEXTROSE 5% 100 ML IV SCH ×2 (04:13→17:37)
[2022-05-13 06:03] LABS: MEAN CORPUSCULAR HEMOGLOBIN 24.7 uug (24.7-32.8); MEAN CORPUSCULAR VOLUME 77.5 fL (75.5-95.3); PLATELET COUNT (AUTO) 269 K/uL (179-408)
[2022-05-13 06:12] LABS: BILIRUBIN,TOTAL 0.3 mg/dL (0.2-1.0); CREATININE 0.9 mg/dL (0.6-1.3); MAGNESIUM 2.5 mg/dL (1.8-2.4); PHOSPHOROUS 4.6 mg/dL (2.5-4.9); POTASSIUM 3.3 mmol/L (3.5-5.1); TOTAL PROTEIN, SERUM 5.8 g/dL (6.4-8.2)
--- NOTE | 2022-05-13 07:10 | NUR ---
Received pt. on ventilator adequately sedated. ETT 7.0 22LL A/C20, Tv450, Peep +5 FIO2 30%. saturation of 100% no distress. Hemodynamically stable, SBP with no need vasopressors sutton to gravity. NG in place. Will continue with care plan.
[2022-05-13] MEDS: FUROSEMIDE 40 MG/4 ML VIAL IV SCH ×2 (08:39→20:52)
[2022-05-13] MEDS: methylPREDNISolone SOD SUCC 40 MG/ML VIAL IV SCH ×2 (08:39→20:52)
[2022-05-13] MEDS: PANTOPRAZOLE SODIUM 40 MG VIAL IV SCH (08:39)
[2022-05-13] MEDS: MUPIROCIN 2% OINT 22 GM TUBE NS SCH ×2 (08:40→20:52)
[2022-05-13] MEDS: CLOTRIMAZOLE 1% CREAM 30 GM TUBE TOP SCH ×2 (08:40→17:37)
[2022-05-13] MEDS: REMEDY ESSENTIAL ZINC PASTE 113 GM TOP SCH ×2 (08:41→20:52)
[2022-05-13] MEDS: ENOXAPARIN SODIUM 100 MG/ML DISP.SYRIN SQ SCH (08:42)
[2022-05-13] MEDS ORDERED: POTASSIUM CHLORIDE 50 ML IV SCH (10:00)
[2022-05-13] MEDS ORDERED: GLUCERNA 1.2 1000ML LIQUID GT PRN (10:45)
[2022-05-13] MEDS ORDERED: POTASSIUM CHLORIDE 20 MEQ POWDER PACKET GT ONE (10:45)
[2022-05-13] MEDS: GLUCERNA 1.2 1000ML LIQUID GT PRN (10:53)
--- NOTE | 2022-05-13 12:01 | NUR ---
Pulmonary services Dr. Miller in the unit to see and examine pt. Pt's daughter also updated on care plan and awaiting for ABG results to be informed to physician.
[2022-05-13 12:17] LABS: ABG HCO3 33.1 mmol/L; ABG PCO2 47.4 mmHg (35.0-45.0); ABG PH 7.462 (7.350-7.450); ABG PO2 84.4 mmHg (75.0-100.0); ABG SITE LEFT RADIAL; ABG TOTAL HEMOGLOBIN 14.7 G/dL (12.0-16.0); MetHb 0.3 % (0.0-1.5); O2Hb 95.4 % (94.0-97.0); VENT MODE VENT - SIMV 4/PS15; VT, ABG 19 mL
--- NOTE | 2022-05-13 12:38 | NUR ---
ABG results informed to Dr. Miller orders to extubate pt. and run an ABG one hour after extubation.
--- NOTE | 2022-05-13 12:46 | NUR ---
Pt's daughter Carmelina requested to bring her Moms's records from [facility] especially the ones pertaining to the diagnosis of left breast CA.
[2022-05-13 14:30] LABS: ABG BASE EXCESS 8.5 mmol/L; ABG HCO3 34.6 mmol/L; ABG PCO2 53.6 mmHg (35.0-45.0); ABG PH 7.428 (7.350-7.450); ABG PO2 64.7 mmHg (75.0-100.0); ABG SITE RIGHT RADIAL; ABG TOTAL HEMOGLOBIN 14.5 G/dL (12.0-16.0); COHb 0.8 % (0.5-1.5); MetHb 0.2 % (0.0-1.5); O2Hb 91.3 % (94.0-97.0)
--- NOTE | 2022-05-13 16:00 | NUR ---
Attending Dr. Grover at bedside. No new orders received.
--- NOTE | 2022-05-13 19:23 | NUR ---
Patient manage to remove NG-T. Attending notified orders for swallow eval received.
[2022-05-13] MEDS: VANCOMYCIN IV 1,250 MG in IV DEXTROSE 5% 250 ML IV SCH (20:18)
[2022-05-13] MEDS ORDERED: LORAZEPAM 2 MG/1 ML VIAL IV ONE (23:15)
[2022-05-14] VITALS (24 sets, daily range): BP systolic 96–123; BP diastolic 36–96
[2022-05-14] MEDS: ALBUTEROL SULFATE 2.5 MG/3 ML NEBU NEB SCH ×4 (01:33→20:00)
[2022-05-14] MEDS: IPRATROPIUM BROMIDE 0.5 MG/2.5 ML NEBU NEB SCH ×4 (01:33→20:00)
--- NOTE | 2022-05-14 01:38 | NUR ---
PATIENT PLACED BACK ON BI/PAP MACHINE APPROX. 22:10 ON 2022, WITH SOB , OTT[place], 15/5 R16, FIO2 40%, PT CAN SLIGHTLY BECOME RESTLESS AT TIMES, HAS MITTENS ON HANDS, SAT 97%, ON BI/PAP WITH FULL LARGE MASK, WITH NEB INLINE RXS .D RICH FITZPATRICKP Addendum: 05/14/22 at 0139 by DELIA VILLANUEVA RT Amended: Links added.
[2022-05-14] MEDS: CEFEPIME HCL 2 G in IV DEXTROSE 5% 100 ML IV SCH ×2 (05:01→16:36)
[2022-05-14 05:11] LABS: HEMATOCRIT 41.1 % (31.2-41.9); MEAN CORPUSCULAR HEMOGLOBIN 24.6 uug (24.7-32.8); MEAN CORPUSCULAR VOLUME 78.6 fL (75.5-95.3); PLATELET COUNT (AUTO) 242 K/uL (179-408)
[2022-05-14 05:26] LABS: ALANINE AMINOTRANSFERASE 41 U/L (14-59); ALKALINE PHOSPHATASE 38 U/L (50-136); ASPARTATE AMINOTRANSFERASE 31 U/L (15-37); BILIRUBIN,TOTAL 0.5 mg/dL (0.2-1.0); CARBON DIOXIDE 39 mmol/L (21-32); CHLORIDE 101 mmol/L (98-107); CREATININE 0.9 mg/dL (0.6-1.3); GLUCOSE 130 mg/dL (74-106); MAGNESIUM 2.5 mg/dL (1.8-2.4); POTASSIUM 3.7 mmol/L (3.5-5.1); TOTAL PROTEIN, SERUM 6.3 g/dL (6.4-8.2); UREA NITROGEN, BLOOD 26 mg/dL (7-18)
[2022-05-14] MEDS ORDERED: PANTOPRAZOLE ORAL SUSPENSION 40 MG SUSPDR.PKT NG SCH (06:00)
--- NOTE | 2022-05-14 06:00 | NUR ---
[id number]--PT CONT. TO BE AWAKE/ALERT BUT PT HAS LANGUAGE BARRIER(SPEAKS FARCY ONLY). PT ABLE TO FOLLOW SIMPLE COMMDS. PT SEEMS SLIGHT CONFUSED AND AGITATED. PT PULLED OUT NGT AT SHIFT CHANGE. MD DYE HOUSE VAT WORKER ORDERED SWALLOW EVAL IN AM. DOMINIC MASSE[employer] CONTACTED ALSO AND ORD. SOFT RESTRAINTS(MITTENS) AND ATIVAN 0.5MG IVPX1 AND NPO FOR TONIGHT PENDING SWALLOW EVAL RESULTS. PT WAS PLACED ON BIPAP DURING THE NIGHT AT APROX. 2200. PT STUART WELL. PT TAKEN OFF BIPAP AT APROX 0645. PT STUART WITH NC 5L/M. PT HAS BEEN AFEBRILE WITH STABLE VS. IV I/P VIA RIGHT IJ-TLC. PT ALSO HAS F/C-U/O [id number]-JEROME/CLR. NO STOOL. AM LABS DONE. PARTIAL BATH AND AM CARE GIVEN. GEN. COND. HAS BEEN STABLE/GUARDED. PT ENDORSED TO MICHAEL HU. KERVIN RODRIGUEZ
[2022-05-14] MEDS: PANTOPRAZOLE SODIUM 40 MG VIAL IV SCH ×2 (06:06→08:46)
--- NOTE | 2022-05-14 07:00 | NUR ---
Recieved pt on bedrest. pt is awake and on 5 L/min NC with a saturation of 98%. Patient is calm and resting comfirtably.
--- NOTE | 2022-05-14 08:45 | NUR ---
Cardiology services, Dr. Hall in the unit to examine pt. report given and as stated "patient is granted cardiac clearance, and maybe down-graded if needed".
[2022-05-14] MEDS: FUROSEMIDE 40 MG/4 ML VIAL IV SCH ×2 (08:47→20:15)
[2022-05-14] MEDS: ENOXAPARIN SODIUM 40 MG/0.4 ML DISP.SYRIN SQ SCH (08:48)
[2022-05-14] MEDS: MUPIROCIN 2% OINT 22 GM TUBE NS SCH ×2 (08:50→20:16)
[2022-05-14] MEDS: CLOTRIMAZOLE 1% CREAM 30 GM TUBE TOP SCH ×2 (08:50→16:38)
[2022-05-14] MEDS: REMEDY ESSENTIAL ZINC PASTE 113 GM TOP SCH ×2 (08:52→20:15)
[2022-05-14] MEDS: methylPREDNISolone SOD SUCC 40 MG/ML VIAL IV SCH ×2 (08:52→20:15)
[2022-05-14 09:28] LABS: ABG BASE EXCESS 12.8 mmol/L; ABG HCO3 40.5 mmol/L; ABG PCO2 64.7 mmHg (35.0-45.0); ABG PH 7.414 (7.350-7.450); ABG PO2 69.6 mmHg (75.0-100.0); ABG SITE RIGHT BRACHIAL; ABG TOTAL HEMOGLOBIN 14.3 G/dL (12.0-16.0); O2Hb 93.1 % (94.0-97.0); VENT MODE Nasal Cannula
--- NOTE | 2022-05-14 13:28 | NUR ---
A call from Dr. Miller and He informed me that after reviewing pt's. condition pulmonary clearance not granted and "pt. should remains another night under ICu observation" attending notified.
[2022-05-14] MEDS: VANCOMYCIN IV 1,250 MG in IV DEXTROSE 5% 250 ML IV SCH (19:00)
--- NOTE | 2022-05-14 21:38 | NUR ---
Nursing supervisor malted milk here says that she has an order from Dr Grover to transfer the pt out of the unit and that she will enter the order that she has received.
--- NOTE | 2022-05-14 22:07 | NUR ---
Report given to Eusebio RODRIGUEZ. Awaiting room availability and he will bring the telemtry monitor with him and assist with moving the patient.
--- NOTE | 2022-05-14 22:45 | NUR ---
Patient picked up from CCU and transferred to room 311; situated in room and fall precautions observed; mittens in placed; needs attended
[2022-05-15] MEDS: IPRATROPIUM BROMIDE 0.5 MG/2.5 ML NEBU NEB SCH ×4 (00:34→19:50)
[2022-05-15] MEDS: ALBUTEROL SULFATE 2.5 MG/3 ML NEBU NEB SCH ×4 (00:34→19:50)
[2022-05-15] MEDS: CEFEPIME HCL 2 G in IV DEXTROSE 5% 100 ML IV SCH ×2 (04:35→17:06)
--- NOTE | 2022-05-15 06:12 | NUR ---
Pt rested well in between care; pt remains on BiPap; for ABG this AM; safety maintained; kept NPO per MD pending ortiz
[2022-05-15 07:43] VITALS: BP 118/51
[2022-05-15] MEDS: GLUCERNA 1.2 1000ML LIQUID GT PRN (08:00)
--- NOTE | 2022-05-15 08:00 | NUR ---
Unable to give glucerna via ngt secondary to pt pulled out ngt from prior shift. Awaiting swallow evaluation. Pt farsi speaking. Noted abd hernia . f/c draining. yellow urine. IV site intact no s/s of infiltration. PT has mittens on tori hand secondary to pts safety as pt attempts to pull out her o2 and iv line on right jugular. Aspiration precaution and frequest turning implemented. Call light is within reach. Pt denies any c/o pain.
[2022-05-15] MEDS: PANTOPRAZOLE SODIUM 40 MG VIAL IV SCH (09:30)
[2022-05-15] MEDS: FUROSEMIDE 40 MG/4 ML VIAL IV SCH ×2 (09:30→20:59)
[2022-05-15] MEDS: methylPREDNISolone SOD SUCC 40 MG/ML VIAL IV SCH ×2 (09:30→20:59)
[2022-05-15] MEDS: ENOXAPARIN SODIUM 40 MG/0.4 ML DISP.SYRIN SQ SCH (09:31)
[2022-05-15] MEDS: MUPIROCIN 2% OINT 22 GM TUBE NS SCH ×2 (09:32→21:38)
[2022-05-15] MEDS: REMEDY ESSENTIAL ZINC PASTE 113 GM TOP SCH ×2 (09:32→21:39)
[2022-05-15] MEDS: CLOTRIMAZOLE 1% CREAM 30 GM TUBE TOP SCH ×2 (09:33→17:07)
[2022-05-15] MEDS: ACETAMINOPHEN 650 MG/20.3 ML LIQUID UDC NG PRN (09:42)
[2022-05-15 11:43] VITALS: BP 107/44
[2022-05-15 15:49] VITALS: BP 108/44
--- NOTE | 2022-05-15 19:40 | NUR ---
Received patient in bed, awake, no sob no chest pain, sinus rhythm on tele, on 5 liters nc sat wnl, no complain of pain, sutton cath patent with yellow/orestes color urine in moderate amount, patient has episode of pulling iv lines, and oxygen tube, unable to follow instruction, check for placement and circulation of tori hand mittents, cont to monitor.
[2022-05-15 20:00] VITALS: BP 96/40
[2022-05-15] MEDS: VANCOMYCIN IV 1,250 MG in IV DEXTROSE 5% 250 ML IV SCH (20:59)
[2022-05-16] VITALS: BP 110/45
[2022-05-16] MEDS: IPRATROPIUM BROMIDE 0.5 MG/2.5 ML NEBU NEB SCH ×4 (01:27→21:21)
[2022-05-16] MEDS: ALBUTEROL SULFATE 2.5 MG/3 ML NEBU NEB SCH ×4 (01:28→21:21)
--- NOTE | 2022-05-16 04:17 | NUR ---
Patient asleep, on BIPAP tolerate well, episode of removing BIPAP, frequent visual check done, unable to follow teaching not to remove BIPAP, kept clean dry and comfortable, cont to monitor.
[2022-05-16 05:38] VITALS: BP 118/74
[2022-05-16 06:54] LABS: HEMATOCRIT 42.7 % (31.2-41.9); MEAN CORPUSCULAR HEMOGLOBIN 25.4 uug (24.7-32.8); PLATELET COUNT (AUTO) 229 K/uL (179-408)
[2022-05-16 07:05] LABS: CREATININE 0.9 mg/dL (0.6-1.3); MAGNESIUM 2.5 mg/dL (1.8-2.4); PHOSPHOROUS 3.2 mg/dL (2.5-4.9); POTASSIUM 3.3 mmol/L (3.5-5.1)
[2022-05-16 08:00] VITALS: BP 111/48
--- NOTE | 2022-05-16 08:00 | NUR ---
AWAKE ALERT BUT CONFUSED X3, CONTINUE SOFT MITTENS FOR PULLING IV TUBINGS. DENIES PAIN OR DISCOMFORT, ON 4L NC SATURATING 95%. SR ON MONITOR
[2022-05-16] MEDS ORDERED: POTASSIUM CHLORIDE 20 MEQ TAB.PRT.SR PO ONE (08:30)
[2022-05-16] MEDS: methylPREDNISolone SOD SUCC 40 MG/ML VIAL IV SCH ×2 (08:45→21:48)
[2022-05-16] MEDS: FUROSEMIDE 40 MG/4 ML VIAL IV SCH ×2 (08:45→21:48)
[2022-05-16] MEDS: ENOXAPARIN SODIUM 40 MG/0.4 ML DISP.SYRIN SQ SCH (08:46)
[2022-05-16] MEDS: MUPIROCIN 2% OINT 22 GM TUBE NS SCH ×2 (08:46→21:49)
[2022-05-16] MEDS: CLOTRIMAZOLE 1% CREAM 30 GM TUBE TOP SCH ×2 (08:47→16:44)
[2022-05-16] MEDS: REMEDY ESSENTIAL ZINC PASTE 113 GM TOP SCH ×2 (08:47→21:49)
[2022-05-16] MEDS: PANTOPRAZOLE SODIUM 40 MG VIAL IV SCH (08:53)
--- NOTE | 2022-05-16 10:00 | NUR ---
SEEN BY DR MASSEY CHANGED STATUS TO TELE
[2022-05-16 10:08] LABS: ABG BASE EXCESS 13.8 mmol/L; ABG HCO3 40.7 mmol/L; ABG PCO2 59.6 mmHg (35.0-45.0); ABG PH 7.452 (7.350-7.450); ABG PO2 85.3 mmHg (75.0-100.0); ABG SITE LEFT BRACHIAL; ABG TOTAL HEMOGLOBIN 14.8 G/dL (12.0-16.0); MetHb 0.3 % (0.0-1.5); O2Hb 95.9 % (94.0-97.0); VENT MODE Nasal Cannula
[2022-05-16] MEDS ORDERED: ACETAzolamide SODIUM 500 MG VIAL IV ONE (11:15)
--- NOTE | 2022-05-16 12:00 | NUR ---
SEEN BY DR AVELAR NOTED RESULTS OF ABG WITH ORDERS. SEE NOTES. PATIENT TOLERATING 4L NC SATURATING 96%.
[2022-05-16 16:00] VITALS: BP 112/76
--- NOTE | 2022-05-16 19:45 | NUR ---
Patient awake, noted with restlessness, offiered juice or food, patient drank some juice, kept clean and dry, swelling noted on lower extremeties, no sob no chest pain, cont to monitor.
[2022-05-16 21:24] VITALS: BP 112/53
[2022-05-17 00:33] VITALS: BP 108/45
[2022-05-17] MEDS: IPRATROPIUM BROMIDE 0.5 MG/2.5 ML NEBU NEB SCH ×4 (04:23→20:58)
[2022-05-17] MEDS: ALBUTEROL SULFATE 2.5 MG/3 ML NEBU NEB SCH ×4 (04:24→20:59)
[2022-05-17 04:33] VITALS: BP 111/60
--- NOTE | 2022-05-17 05:46 | NUR ---
Patient awake no sob no chest pain, sinus rhythm on tele, Patient removes BIPAP and gets agitated, RT removed BIPAP, patient on BIPAP for few hours only, sat wnl, no complain of pain, voiding well, hand mittens in place, still with episode of pulling iv lines, cont to monitor.
[2022-05-17 07:08] LABS: HEMATOCRIT 45.4 % (31.2-41.9); MEAN CORPUSCULAR HEMOGLOBIN 24.6 uug (24.7-32.8); PLATELET COUNT (AUTO) 246 K/uL (179-408)
[2022-05-17 07:25] LABS: CREATININE 0.9 mg/dL (0.6-1.3); MAGNESIUM 2.5 mg/dL (1.8-2.4); PHOSPHOROUS 3.5 mg/dL (2.5-4.9); POTASSIUM 3.3 mmol/L (3.5-5.1)
--- NOTE | 2022-05-17 07:43 | NUR ---
AWAKE ALERT AND MORE COMPLIANCE TODAY. ANSWER SIMPLE QUESTIONS , KNOWS NAME. NO SS OF PAIN OR DISTRESS ON 4L NC SATURATING 95%. CONTINUE TELE STATUS ORDERED. INCONTINENT OF URINE KEPT CLEAN AND DRY
[2022-05-17] MEDS: PANTOPRAZOLE SODIUM 40 MG VIAL IV SCH (08:40)
[2022-05-17] MEDS: FUROSEMIDE 40 MG/4 ML VIAL IV SCH ×2 (08:40→21:08)
[2022-05-17] MEDS: MUPIROCIN 2% OINT 22 GM TUBE NS SCH ×2 (08:40→21:41)
[2022-05-17] MEDS: CLOTRIMAZOLE 1% CREAM 30 GM TUBE TOP SCH ×2 (08:42→16:06)
[2022-05-17] MEDS: ENOXAPARIN SODIUM 40 MG/0.4 ML DISP.SYRIN SQ SCH (08:42)
[2022-05-17] MEDS: REMEDY ESSENTIAL ZINC PASTE 113 GM TOP SCH ×2 (08:43→21:41)
[2022-05-17] MEDS: methylPREDNISolone SOD SUCC 40 MG/ML VIAL IV SCH ×2 (08:46→21:08)
[2022-05-17 10:26] LABS: ABG BASE EXCESS 14.9 mmol/L; ABG PCO2 73.6 mmHg (35.0-45.0); ABG PH 7.394 (7.350-7.450); ABG PO2 71.3 mmHg (75.0-100.0); ABG SITE RIGHT RADIAL; ABG TOTAL HEMOGLOBIN 15.4 G/dL (12.0-16.0); COHb 1.1 % (0.5-1.5); MetHb 0.3 % (0.0-1.5); O2Hb 93.1 % (94.0-97.0); VENT MODE Nasal Cannula
[2022-05-17] MEDS: ACETAzolamide SODIUM 500 MG VIAL IV SCH (11:44)
[2022-05-17] MEDS ORDERED: POTASSIUM CHLORIDE 20 MEQ TAB.PRT.SR PO ONE (12:00)
--- NOTE | 2022-05-17 12:00 | NUR ---
SEEN BY DR AVELAR WITH ORDERS. TOLERATING 3L NC SATURATING 95%
[2022-05-17 12:57] VITALS: BP 133/55
--- NOTE | 2022-05-17 15:01 | NUR ---
DR AVELAR NOTIFIED OF CO2 42, PATIENT ASYMPTOMATIC. ORDERED ABG IN AM
[2022-05-17 15:58] VITALS: BP 111/45
[2022-05-17] MEDS: GLUCERNA SHAKE 237 ML CAN PO SCH (16:05)
--- NOTE | 2022-05-17 20:00 | NUR ---
received pt on gerichair; pt placed back to bed; incontince care done; Purewick placed for pt will have lasix for strict I/O
[2022-05-17 20:05] VITALS: BP 131/97
[2022-05-18 00:38] VITALS: BP 137/58
[2022-05-18] MEDS: ALBUTEROL SULFATE 2.5 MG/3 ML NEBU NEB SCH ×4 (01:30→19:51)
[2022-05-18] MEDS: IPRATROPIUM BROMIDE 0.5 MG/2.5 ML NEBU NEB SCH ×4 (01:30→19:51)
[2022-05-18 04:14] VITALS: BP 126/62
[2022-05-18] MEDS: PANTOPRAZOLE SODIUM 40 MG TABLET.DR PO SCH (06:15)
--- NOTE | 2022-05-18 06:16 | NUR ---
pt unable to give Protonix- pill can not be crushed.
[2022-05-18 06:33] LABS: HEMATOCRIT 47.4 % (31.2-41.9); MEAN CORPUSCULAR HEMOGLOBIN 24.8 uug (24.7-32.8); MEAN CORPUSCULAR VOLUME 80.5 fL (75.5-95.3); PLATELET COUNT (AUTO) 253 K/uL (179-408)
[2022-05-18 06:41] LABS: CREATININE 0.8 mg/dL (0.6-1.3); MAGNESIUM 2.6 mg/dL (1.8-2.4); PHOSPHOROUS 3.5 mg/dL (2.5-4.9); POTASSIUM 3.8 mmol/L (3.5-5.1)
[2022-05-18] MEDS: ACETAzolamide SODIUM 500 MG VIAL IV SCH (08:41)
[2022-05-18] MEDS: GLUCERNA SHAKE 237 ML CAN PO SCH ×3 (08:41→18:17)
[2022-05-18] MEDS: MUPIROCIN 2% OINT 22 GM TUBE NS SCH ×2 (08:42→21:00)
[2022-05-18] MEDS: methylPREDNISolone SOD SUCC 40 MG/ML VIAL IV SCH ×2 (08:42→21:08)
[2022-05-18] MEDS: FUROSEMIDE 40 MG/4 ML VIAL IV SCH ×2 (08:42→21:08)
[2022-05-18] MEDS: ENOXAPARIN SODIUM 40 MG/0.4 ML DISP.SYRIN SQ SCH (08:43)
[2022-05-18] MEDS: REMEDY ESSENTIAL ZINC PASTE 113 GM TOP SCH ×2 (08:44→21:36)
[2022-05-18] MEDS: CLOTRIMAZOLE 1% CREAM 30 GM TUBE TOP SCH ×2 (08:44→18:18)
[2022-05-18 09:30] LABS: ABG BASE EXCESS 11.8 mmol/L; ABG HCO3 42.7 mmol/L; ABG PCO2 85.6 mmHg (35.0-45.0); ABG PH 7.316 (7.350-7.450); ABG PO2 62.6 mmHg (75.0-100.0); ABG SITE RIGHT RADIAL; ABG TOTAL HEMOGLOBIN 16.2 G/dL (12.0-16.0); COHb 1.1 % (0.5-1.5); MetHb 0.4 % (0.0-1.5); O2Hb 90.1 % (94.0-97.0); VENT MODE Nasal Cannula
[2022-05-18 11:42] VITALS: BP 119/54
[2022-05-18 15:46] VITALS: BP 123/54
[2022-05-18 20:00] VITALS: BP 113/56
[2022-05-19] VITALS: BP 132/50
[2022-05-19] MEDS: IPRATROPIUM BROMIDE 0.5 MG/2.5 ML NEBU NEB SCH ×4 (00:55→19:22)
[2022-05-19] MEDS: ALBUTEROL SULFATE 2.5 MG/3 ML NEBU NEB SCH ×4 (00:55→19:22)
[2022-05-19 04:00] VITALS: BP 112/55
[2022-05-19] MEDS: PANTOPRAZOLE SODIUM 40 MG TABLET.DR PO SCH (06:16)
[2022-05-19] MEDS: GLUCERNA SHAKE 237 ML CAN PO SCH ×3 (08:00→17:00)
[2022-05-19 08:05] LABS: CREATININE 0.9 mg/dL (0.6-1.3); MAGNESIUM 2.5 mg/dL (1.8-2.4); PHOSPHOROUS 3.3 mg/dL (2.5-4.9); POTASSIUM 3.5 mmol/L (3.5-5.1)
[2022-05-19 09:22] LABS: ABG BASE EXCESS 10.1 mmol/L; ABG HCO3 37.4 mmol/L; ABG PCO2 59.5 mmHg (35.0-45.0); ABG PH 7.416 (7.350-7.450); ABG PO2 72.8 mmHg (75.0-100.0); ABG SITE RIGHT RADIAL; COHb 1.3 % (0.5-1.5); MetHb 0.4 % (0.0-1.5); VENT MODE Nasal Cannula
[2022-05-19 09:35] LABS: HEMATOCRIT 52.5 % (31.2-41.9); MEAN CORPUSCULAR HEMOGLOBIN 24.6 uug (24.7-32.8); MEAN CORPUSCULAR VOLUME 81.4 fL (75.5-95.3); PLATELET COUNT (AUTO) 268 K/uL (179-408)
[2022-05-19 12:04] VITALS: BP 117/63
[2022-05-19] MEDS: FUROSEMIDE 40 MG/4 ML VIAL IV SCH ×2 (15:19→21:42)
[2022-05-19] MEDS: methylPREDNISolone SOD SUCC 40 MG/ML VIAL IV SCH ×2 (15:19→21:42)
[2022-05-19] MEDS: ENOXAPARIN SODIUM 40 MG/0.4 ML DISP.SYRIN SQ SCH (15:21)
[2022-05-19] MEDS: MUPIROCIN 2% OINT 22 GM TUBE NS SCH (15:24)
[2022-05-19] MEDS: REMEDY ESSENTIAL ZINC PASTE 113 GM TOP SCH ×2 (15:25→21:57)
[2022-05-19] MEDS: CLOTRIMAZOLE 1% CREAM 30 GM TUBE TOP SCH ×2 (15:25→17:00)
[2022-05-19 16:15] VITALS: BP 112/58
[2022-05-19 20:00] VITALS: BP 108/57
[2022-05-20] VITALS: BP 122/63
[2022-05-20] MEDS: IPRATROPIUM BROMIDE 0.5 MG/2.5 ML NEBU NEB SCH ×4 (01:16→19:57)
[2022-05-20] MEDS: ALBUTEROL SULFATE 2.5 MG/3 ML NEBU NEB SCH ×4 (01:16→19:57)
[2022-05-20 04:00] VITALS: BP 120/75
[2022-05-20] MEDS: PANTOPRAZOLE SODIUM 40 MG TABLET.DR PO SCH (06:30)
--- NOTE | 2022-05-20 07:30 | NUR ---
REPORT GIVEN TO MICHAEL SALAZAR
[2022-05-20] MEDS ORDERED: IV D5W 1000ML 1,000 ML IV ONE (08:00)
--- NOTE | 2022-05-20 08:00 | NUR ---
AWAKE ALERT AND VERBALLY RESPONSIVE BUT CONFUSED X3, COMFORT AND SAFETY OBSERVED. ON 2L O2 VIA NC SATURATING 04%. NO SS OF PAIN OR DISTRESS.
[2022-05-20] MEDS: GLUCERNA SHAKE 237 ML CAN PO SCH ×3 (08:29→18:01)
[2022-05-20] MEDS: FUROSEMIDE 40 MG/4 ML VIAL IV SCH (08:29)
[2022-05-20] MEDS: methylPREDNISolone SOD SUCC 40 MG/ML VIAL IV SCH ×2 (08:31→20:40)
[2022-05-20] MEDS: ENOXAPARIN SODIUM 40 MG/0.4 ML DISP.SYRIN SQ SCH (08:33)
[2022-05-20] MEDS: REMEDY ESSENTIAL ZINC PASTE 113 GM TOP SCH ×2 (08:33→20:41)
[2022-05-20] MEDS: CLOTRIMAZOLE 1% CREAM 30 GM TUBE TOP SCH ×2 (08:33→18:02)
[2022-05-20 11:30] VITALS: BP 124/55
--- NOTE | 2022-05-20 11:43 | NUR ---
SEEN BY DR CUMMINGS WITH ORDER FOR ANOTHER ABG
[2022-05-20 12:07] LABS: ABG BASE EXCESS 8.1 mmol/L; ABG HCO3 35.7 mmol/L; ABG PCO2 61.2 mmHg (35.0-45.0); ABG PH 7.384 (7.350-7.450); ABG PO2 65.4 mmHg (75.0-100.0); ABG SITE RIGHT BRACHIAL; ABG TOTAL HEMOGLOBIN 15.8 G/dL (12.0-16.0); COHb 1.3 % (0.5-1.5); MetHb 0.3 % (0.0-1.5); O2Hb 92.1 % (94.0-97.0); VENT MODE Nasal Cannula
--- NOTE | 2022-05-20 12:12 | NUR ---
RESULTS OF ABG IN AND NOTED BY DR CUMMINGS NO NEW ORDERS, PATIENT REMAINS COMFORTABLE WITH NO SS OF DISTRESS, DENIES PAIN SR ON MONITOR
[2022-05-20 15:28] VITALS: BP 111/48
[2022-05-20 20:00] VITALS: BP 115/60
[2022-05-21] VITALS: BP 127/67
[2022-05-21] MEDS: ALBUTEROL SULFATE 2.5 MG/3 ML NEBU NEB SCH ×4 (01:24→19:48)
[2022-05-21] MEDS: IPRATROPIUM BROMIDE 0.5 MG/2.5 ML NEBU NEB SCH ×4 (01:24→19:48)
[2022-05-21 04:00] VITALS: BP 134/83
[2022-05-21] MEDS: PANTOPRAZOLE SODIUM 40 MG TABLET.DR PO SCH (07:08)
[2022-05-21 08:48] LABS: HEMATOCRIT 46.9 % (31.2-41.9); MEAN CORPUSCULAR HEMOGLOBIN 24.7 uug (24.7-32.8); PLATELET COUNT (AUTO) 228 K/uL (179-408)
[2022-05-21 09:19] LABS: BILIRUBIN,TOTAL 0.4 mg/dL (0.2-1.0); CREATININE 0.8 mg/dL (0.6-1.3); MAGNESIUM 2.3 mg/dL (1.8-2.4); POTASSIUM 3.9 mmol/L (3.5-5.1); TOTAL PROTEIN, SERUM 6.8 g/dL (6.4-8.2)
[2022-05-21] MEDS: methylPREDNISolone SOD SUCC 40 MG/ML VIAL IV SCH ×2 (09:41→20:51)
[2022-05-21] MEDS: GLUCERNA SHAKE 237 ML CAN PO SCH ×3 (09:42→16:38)
[2022-05-21] MEDS: FUROSEMIDE 40 MG/4 ML VIAL IV SCH (09:42)
[2022-05-21] MEDS: ENOXAPARIN SODIUM 40 MG/0.4 ML DISP.SYRIN SQ SCH (09:43)
[2022-05-21] MEDS: CLOTRIMAZOLE 1% CREAM 30 GM TUBE TOP SCH ×2 (09:43→16:38)
[2022-05-21] MEDS: REMEDY ESSENTIAL ZINC PASTE 113 GM TOP SCH ×2 (09:44→20:51)
[2022-05-21 11:09] VITALS: BP 102/44
[2022-05-21] MEDS ORDERED: POTASSIUM CHLORIDE 20 MEQ TAB.PRT.SR PO ONE (11:45)
[2022-05-21 16:03] VITALS: BP 140/36
--- NOTE | 2022-05-21 16:40 | NUR ---
CONTINUE PLAN OF CARE, PHYSICAL THERAPY AND RESPIRATORY MONITORING. [employer] SPOKE WITH TABITHA KOTHARI REGARDING DISCHARGE PLANNING SEE NOTES. REMAINS ON 4L NC SATURATING 93-94%, SR ON MONITOR
--- NOTE | 2022-05-21 19:30 | NUR ---
RECEIVED PATIENT IN BED SPEAK [place] BUT UNDERSTAND [place] CITIZ[place], NO SOB NO CHEST PAIN, SINUS RHYTHM ON TELE, NO COMPLAIN OF PAIN AT THIS TIME, CHECK PLACEMENT AND CIRCULATION ON SOFT WRIST RESTRAINTS, PATIENT PULLED OUT IV LINES, UN REDIRECTABLE, CONT TO MONITOR. KEPT CLEAN AND DRY.
[2022-05-21 20:00] VITALS: BP 115/60
[2022-05-22] VITALS: BP 128/73
[2022-05-22] MEDS: IPRATROPIUM BROMIDE 0.5 MG/2.5 ML NEBU NEB SCH ×4 (01:40→19:36)
[2022-05-22] MEDS: ALBUTEROL SULFATE 2.5 MG/3 ML NEBU NEB SCH ×4 (01:40→19:36)
--- NOTE | 2022-05-22 01:40 | NUR ---
RT PUT BIAPAP ON PATIENT TOLERATE WELL, FREQUENT MONITORING, CALL LIGHT WITHIN REACH. CONT TO MONITOR.
[2022-05-22 04:00] VITALS: BP 125/68
--- NOTE | 2022-05-22 06:10 | NUR ---
patient tolerate BIPAP, no s/s of pain nor discomfort, kept clean and dry, sleep well, cont to monitor.
[2022-05-22] MEDS: PANTOPRAZOLE SODIUM 40 MG TABLET.DR PO SCH (07:00)
[2022-05-22 07:14] LABS: CREATININE 0.7 mg/dL (0.6-1.3); MAGNESIUM 2.4 mg/dL (1.8-2.4); PHOSPHOROUS 3.4 mg/dL (2.5-4.9); POTASSIUM 4.5 mmol/L (3.5-5.1)
[2022-05-22 07:23] LABS: HEMATOCRIT 44.7 % (31.2-41.9); MEAN CORPUSCULAR HEMOGLOBIN 24.7 uug (24.7-32.8); MEAN CORPUSCULAR VOLUME 79.5 fL (75.5-95.3); PLATELET COUNT (AUTO) 244 K/uL (179-408)
[2022-05-22 08:21] LABS: ABG BASE EXCESS 10.2 mmol/L; ABG HCO3 36.4 mmol/L; ABG PCO2 54.2 mmHg (35.0-45.0); ABG PH 7.445 (7.350-7.450); ABG PO2 59.7 mmHg (75.0-100.0); ABG SITE LEFT BRACHIAL; ABG TOTAL HEMOGLOBIN 15.3 G/dL (12.0-16.0); COHb 0.9 % (0.5-1.5); MetHb 0.3 % (0.0-1.5); O2Hb 91.6 % (94.0-97.0); VENT MODE Nasal Cannula
[2022-05-22] MEDS: methylPREDNISolone SOD SUCC 40 MG/ML VIAL IV SCH ×2 (09:06→20:21)
[2022-05-22] MEDS: FUROSEMIDE 40 MG/4 ML VIAL IV SCH (09:06)
[2022-05-22] MEDS: ENOXAPARIN SODIUM 40 MG/0.4 ML DISP.SYRIN SQ SCH (09:10)
[2022-05-22] MEDS: CLOTRIMAZOLE 1% CREAM 30 GM TUBE TOP SCH ×2 (09:11→17:14)
[2022-05-22] MEDS: REMEDY ESSENTIAL ZINC PASTE 113 GM TOP SCH ×2 (09:12→22:15)
[2022-05-22] MEDS: GLUCERNA SHAKE 237 ML CAN PO SCH ×3 (09:13→17:14)
[2022-05-22 11:31] VITALS: BP 129/81
[2022-05-22 15:14] VITALS: BP 123/75
--- NOTE | 2022-05-22 19:35 | NUR ---
received patient in bed alert able to make needs known, no sob no chest pain, on 2 liters per minute for help sob, no complain of pain, with episode of removing iv lines, oxygen tubing, refused to follow instructions, sat wnl cont to monitor.
[2022-05-22 20:00] VITALS: BP 111/61
[2022-05-22] MEDS: ACETAMINOPHEN 650 MG/20.3 ML LIQUID UDC NG PRN (23:11)
[2022-05-23] VITALS: BP 111/54
[2022-05-23] MEDS: IPRATROPIUM BROMIDE 0.5 MG/2.5 ML NEBU NEB SCH ×4 (01:36→19:30)
[2022-05-23] MEDS: ALBUTEROL SULFATE 2.5 MG/3 ML NEBU NEB SCH ×4 (01:36→19:30)
[2022-05-23 04:00] VITALS: BP 126/72
--- NOTE | 2022-05-23 06:41 | NUR ---
Patient on bipap most of the night with episode of removing the bipap, cont to reorient, but unable to follow, tolerate current diet, check soft wrist restraints for placement and circulations, cont to reorient. Patient has wet cough but no sputum produce, RT gave HHN tx for cough and congestion,cont monitor.
[2022-05-23 06:46] LABS: HEMATOCRIT 43.7 % (31.2-41.9); MEAN CORPUSCULAR HEMOGLOBIN 24.7 uug (24.7-32.8); MEAN CORPUSCULAR VOLUME 79.2 fL (75.5-95.3); PLATELET COUNT (AUTO) 224 K/uL (179-408)
[2022-05-23] MEDS: PANTOPRAZOLE SODIUM 40 MG TABLET.DR PO SCH (06:57)
[2022-05-23 07:08] LABS: CREATININE 0.8 mg/dL (0.6-1.3); MAGNESIUM 2.3 mg/dL (1.8-2.4); PHOSPHOROUS 3.5 mg/dL (2.5-4.9); POTASSIUM 3.9 mmol/L (3.5-5.1)
[2022-05-23] MEDS: ENOXAPARIN SODIUM 40 MG/0.4 ML DISP.SYRIN SQ SCH (08:34)
[2022-05-23] MEDS: FUROSEMIDE 40 MG/4 ML VIAL IV SCH (08:35)
[2022-05-23] MEDS: methylPREDNISolone SOD SUCC 40 MG/ML VIAL IV SCH (08:35)
[2022-05-23] MEDS: GLUCERNA SHAKE 237 ML CAN PO SCH ×3 (08:37→17:58)
[2022-05-23] MEDS: REMEDY ESSENTIAL ZINC PASTE 113 GM TOP SCH (08:38)
[2022-05-23] MEDS: CLOTRIMAZOLE 1% CREAM 30 GM TUBE TOP SCH ×2 (08:38→17:59)
[2022-05-23 11:55] VITALS: BP 112/54
[2022-05-23 16:06] VITALS: BP 132/51
[2022-05-23] MEDS ORDERED: METH4TAB3 PO (17:16)
--- NOTE | 2022-05-23 19:20 | NUR ---
DISCHARGED TO [facility] [place] [facility]IA [facility]BULANCE. REPORT GIVEN TO EVELYNE FROM [facility]
== END 2022-05-23 20:21 | DRG 871 ==
LOC: ER 20:36 → CCU 05-10 07:52 → TELE-TD3 05-14 22:30 → TELE3 05-16 08:35
PROVIDERS: ADMIT Registered Nurse; ATTEND Internal Medicine
PROC: 5A1945Z Respiratory Ventilation, 24-96 Consecutive Hours (ICD-10-PCS; principal; 2022-05-10)
PROC: 0BH17EZ Insertion of Endotracheal Airway into Trachea, Via Natural or Artificial Opening (ICD-10-PCS; 2022-05-10)
DX: A41.9 Sepsis, unspecified organism (principal); E43 Unspecified severe protein-calorie malnutrition; G92.8 Other toxic encephalopathy; I21.A1 Myocardial infarction type 2; I50.33 Acute on chronic diastolic (congestive) heart failure; J69.0 Pneumonitis due to inhalation of food and vomit; R53.2 Functional quadriplegia; J96.01 Acute respiratory failure with hypoxia; J96.02 Acute respiratory failure with hypercapnia; J44.1 Chronic obstructive pulmonary disease with (acute) exacerbation; N39.0 Urinary tract infection, site not specified; E87.3 Alkalosis; R57.9 Shock, unspecified; L03.116 Cellulitis of left lower limb; J44.0 Chronic obstructive pulmonary disease with (acute) lower respiratory infection; Z68.41 Body mass index [BMI] 40.0-44.9, adult; E87.1 Hypo-osmolality and hyponatremia; J98.11 Atelectasis; E66.2 Morbid (severe) obesity with alveolar hypoventilation; Q21.10 Atrial septal defect, unspecified; E05.90 Thyrotoxicosis, unspecified without thyrotoxic crisis or storm; E11.51 Type 2 diabetes mellitus with diabetic peripheral angiopathy without gangrene; E03.9 Hypothyroidism, unspecified; E78.5 Hyperlipidemia, unspecified; F20.9 Schizophrenia, unspecified; I11.0 Hypertensive heart disease with heart failure; I87.2 Venous insufficiency (chronic) (peripheral); K21.9 Gastro-esophageal reflux disease without esophagitis; M19.90 Unspecified osteoarthritis, unspecified site; M81.0 Age-related osteoporosis without current pathological fracture; Z86.73 Personal history of transient ischemic attack (TIA), and cerebral infarction without residual deficits; Z88.1 Allergy status to other antibiotic agents; Z79.84 Long term (current) use of oral hypoglycemic drugs; Z20.822 Contact with and (suspected) exposure to COVID-19; R65.20 Severe sepsis without septic shock; E83.52 Hypercalcemia; D50.9 Iron deficiency anemia, unspecified; E86.9 Volume depletion, unspecified; Z79.899 Other long term (current) drug therapy; N61.0 Mastitis without abscess; F09 Unspecified mental disorder due to known physiological condition; Z22.322 Carrier or suspected carrier of Methicillin resistant Staphylococcus aureus; B96.89 Other specified bacterial agents as the cause of diseases classified elsewhere; F03.90 Unspecified dementia, unspecified severity, without behavioral disturbance, psychotic disturbance, mood disturbance, and anxiety; N63.20 Unspecified lump in the left breast, unspecified quadrant
CPT/HCPCS: 36415; 36556; 36600; 51702; 71045; 82378; 82803; 83550; 83605; 83735; 83935; 84100; 84300; 84443; 84484; 85025; 86140; 87040; 87400; 93005; 93307; 94002; 94003; 94640; 94660; 94664; 99082-TC; A4663; A6209; A6213; C9113; G0378; J0330; J0456; J0692; J0696; J1120; J1650; J1815; J1940; J2060; J2920; J2930; J3370; J3480; J3490; J3590; J7040; J7050; J7070